=== PATIENT | female | born 1980 | race African-American/Black ===

== ENCOUNTER 2020-06-20 15:09 | Outpatient (REF) | payer OTHER, SELFPAY ==
[2020-06-21 08:42] LABS: BV Int Neg Control Negative (Negative); BV Int Pos Control Positive (Positive)
[2020-06-22 07:51] LABS: C. trachomatis RNA TMA NOT DETECTED (NOT DETECTED); N. gonorrhoeae RNA TMA NOT DETECTED (NOT DETECTED)
[2020-06-22 22:06] LABS: HPV mRNA E6/E7 Not Detected (Not Detected)
== END 2020-06-20 15:10 | disposition home or self-care (01) ==
LOC: HO.LAB 15:09
PROVIDERS: PCP Internal Medicine; Referring Provider Internal Medicine; Visit Provider Advanced Practice Midwife
DX: Z01.411 Encounter for gynecological examination (general) (routine) with abnormal findings (principal); R10.2 Pelvic and perineal pain; Z20.2 Contact with and (suspected) exposure to infections with a predominantly sexual mode of transmission
CPT/HCPCS: 36415; 87480; 87491; 87510; 87591; 87624; 87625; 87660; 88141; 88142

== ENCOUNTER 2020-06-26 07:58 | Outpatient (REF) | payer OTHER, SELFPAY ==
--- NOTE | 2020-06-26 14:05 | XR_ITS ---
EXAMINATION: BILATERAL AP KNEE, LEFT KNEE. CLINICAL INFORMATION: Left knee pain COMPARISON: Left knee 01/20/2013 TECHNIQUE: AP bilateral knee standing and left knee 2 views FINDINGS: AP BILATERAL KNEE: There is mild reduction in medial and lateral compartment joint space of both knees but no loose bodies, bony erosive changes or soft tissue swelling. LEFT KNEE: The patellofemoral compartment joint space is maintained. The soft tissues are normal. XR/XR knee standing BI IMPRESSION: Mild early degenerative changes in medial and lateral compartments both knees.
--- NOTE | 2020-06-26 14:05 | XR_ITS ---
EXAMINATION: BILATERAL AP KNEE, LEFT KNEE. CLINICAL INFORMATION: Left knee pain COMPARISON: Left knee 01/20/2013 TECHNIQUE: AP bilateral knee standing and left knee 2 views FINDINGS: AP BILATERAL KNEE: There is mild reduction in medial and lateral compartment joint space of both knees but no loose bodies, bony erosive changes or soft tissue swelling. LEFT KNEE: The patellofemoral compartment joint space is maintained. The soft tissues are normal. XR/XR knee LT 2V IMPRESSION: Mild early degenerative changes in medial and lateral compartments both knees.
== END 2020-06-26 07:59 | disposition home or self-care (01) ==
LOC: HO.HOSX 07:58
PROVIDERS: Visit Provider Orthopaedic Surgery
DX: M25.561 Pain in right knee (principal); M25.562 Pain in left knee; M22.2X2 Patellofemoral disorders, left knee
CPT/HCPCS: 73560; 73565; 99202

== ENCOUNTER 2020-06-28 14:41 | Outpatient (REF) | payer OTHER, SELFPAY ==
--- NOTE | 2020-06-28 14:47 | XR_ITS ---
EXAMINATION: XR KNEE, LEFT CLINICAL INFORMATION: Pain in left knee COMPARISON: 06/26/2020 TECHNIQUE: Four views of the left knee. This includes AP standing view. FINDINGS: There is no fracture or subluxation. Mild medial compartment joint space narrowing with remaining compartmental joint space is maintained. No joint effusion. The soft tissues are unremarkable.. XR/XR knee LT 2V IMPRESSION: Mild medial compartment narrowing. Otherwise unremarkable appearance of the left knee.
--- NOTE | 2020-06-28 14:47 | US_ITS ---
EXAMINATION: US PELVIS ULTRASOUND CLINICAL INFORMATION: R10.2 - Pelvic and perineal pain. Prior history x2 and right ectopic. COMPARISON: Ultrasound pelvis 11/24/2019, 02/01/2019 TECHNIQUE: Ultrasound of the pelvis is performed using both transabdominal and transvaginal transducers along with Doppler. Transvaginal imaging is performed due to inadequate visualization transabdominally. FINDINGS: Uterus: The uterus is anteverted and measures 6.8 x 3.7 x 5.8 cm. The double wall endometrial thickness is 9 mm. No fluid in the uterine cavity. There are some small nabothian cysts again seen in the cervix with scattered stable lower uterine segment echogenic foci likely benign calcification. No abnormal color flow. The uterus is smooth in contour and has normal myometrial echogenicity. No visible fibroid. Adnexa: Both ovaries are visualized. There is normal color flow to the adnexa. There is no ovarian torsion. There is no pelvic ascites or fluid collection. Right ovary measures 3.5 x 1.9 x 2.3 cm. There is a postovulatory corpus luteum within the right ovary measuring just under 1.5 cm. Left ovary measures 3.2 x 2.2 x 2.2 cm. No left adnexal mass. US/US pelvic complete IMPRESSION: 1. Uterus: Normal endometrial thickness. No visible fibroid. Stable punctate benign calcifications lower uterine segment and stable scattered nabothian cysts in cervix. 2. Adnexa: Incidental right postovulatory corpus luteum under 1.5 cm. No adnexal mass or pelvic ascites.
[2020-06-29 03:45] LABS: Syphilis Screen Nonreactive (Nonreactive)
[2020-06-29 03:58] LABS: HIV AB/AG Nonreactive (Nonreactive); HIV Num 1 0.08 S/CO (0.00-0.99); Hepatitis B Surface Antigen Negative (Negative); ~HepC Num1 0.09 S/CO (0.00-0.79); ~Hepatitis C Antibody Nonreactive (Nonreactive)
[2020-06-30 17:43] LABS: C. trachomatis RNA TMA NOT DETECTED (NOT DETECTED); N. gonorrhoeae RNA TMA NOT DETECTED (NOT DETECTED)
== END 2020-06-28 14:42 | disposition home or self-care (01) ==
LOC: HO.US 14:41
PROVIDERS: PCP Internal Medicine; Visit Provider Advanced Practice Midwife
DX: R10.2 Pelvic and perineal pain (principal); M25.562 Pain in left knee; Z20.2 Contact with and (suspected) exposure to infections with a predominantly sexual mode of transmission
CPT/HCPCS: 36415; 73560; 76830; 76856; 86780; 86803; 87340; 87389; 87491; 87591

== ENCOUNTER → 2020-07-12 12:55 | Outpatient (BNVA) | payer OTHER, SELFPAY | PROVIDERS: PCP Internal Medicine; Visit Provider Advanced Practice Midwife ==

== ENCOUNTER → 2020-09-13 14:48 | Outpatient (BNVA) | payer OTHER, SELFPAY | PROVIDERS: PCP Internal Medicine; Visit Provider Nurse Practitioner ==

== ENCOUNTER → 2020-10-08 13:09 | Outpatient (BNVA) | payer OTHER, SELFPAY | PROVIDERS: PCP Internal Medicine; Visit Provider Nurse Practitioner ==

== ENCOUNTER 2020-11-06 15:46 | Outpatient (REF) | payer OTHER, SELFPAY ==
--- NOTE | ~2020-11-06 | MM_ITS ---
EXAMINATION: MM SCREENING DIGITAL BREAST TOMOSYNTHESIS, BILATERAL CLINICAL INFORMATION: Screening. Asymptomatic. Age 40. No prior breast imaging. Family history breast cancer, grandmother. The lifetime risk of breast cancer based on the Tyrer-Cuzick Model is 13%. COMPARISON: None (current study represents initial baseline exam). TECHNIQUE: Digital breast tomosynthesis is performed in both the craniocaudal and mediolateral oblique views along with computer-aided detection (CAD). Synthesized 2D images are generated from the tomosynthesis. Additional exaggerated right CC view is provided. FINDINGS: There are scattered areas of fibroglandular density (ACR BI-RADS breast composition Category b). There are no significant masses, abnormal calcifications, or other abnormalities. The axilla and skin contours are unremarkable. MM/MM tomosynthesis screening BI IMPRESSION: No mammographic evidence of malignancy. ASSESSMENT: BI-RADS 1: Negative RECOMMENDATION: Routine annual mammography screening. This patient's information was entered into a reminder system with a target due date for their next mammogram.
== END 2020-11-06 15:47 | disposition home or self-care (01) ==
LOC: HO.MAMMO 15:46
PROVIDERS: PCP Internal Medicine; Visit Provider Internal Medicine
DX: Z12.31 Encounter for screening mammogram for malignant neoplasm of breast (principal)
CPT/HCPCS: 77063; 77067

== ENCOUNTER → 2020-11-20 15:47 | Outpatient (BNVA) | payer OTHER, SELFPAY | PROVIDERS: PCP Internal Medicine; Visit Provider Nurse Practitioner ==

== ENCOUNTER 2021-01-11 08:13 | Emergency (ER) | payer OTHER, SELFPAY ==
--- NOTE | ~2021-01-11 | CT_ITS ---
EXAMINATION: CT ABDOMEN AND PELVIS WITHOUT CONTRAST CLINICAL INFORMATION: Nausea with upper abdominal pain and diarrhea COMPARISON: Ultrasound of January 11, [address] scan of February 17, 2018. TECHNIQUE: Multidetector volumetric imaging was performed from the superior aspect of the liver through the pubic symphysis. Sagittal and coronal reformatted images were obtained on the technologist's workstation. This CT examination was performed using dose optimization techniques as appropriate, variously including the following: *Automated exposure control *Adjustment of mA and/or kV according to patient size (this includes techniques or standardized protocols for targeted exams where dose is matched to indication/reason for exam; i.e. extremities or head) *Use of iterative reconstruction technique DLP: 288 mGy-cm FINDINGS: LUNG BASES: The visualized lung bases are unremarkable. No pleural or pericardial effusion. Heart normal size. LIVER, GALLBLADDER, AND BILIARY TREE: The liver is normal in size, shape, and attenuation. No focal hepatic lesion or biliary ductal dilatation is present. The gallbladder is unremarkable with no evidence of radiopaque gallstones, gallbladder wall thickening, or obvious pericholecystic inflammatory changes. PANCREAS: Unremarkable. No pancreatic inflammatory change. SPLEEN: Unremarkable. ADRENAL GLANDS: Unremarkable. KIDNEYS AND URETERS: The kidneys are normal in size, shape, and attenuation. No hydronephrosis, hydroureter, or calculi seen. No perinephric stranding. BLADDER: Unremarkable. GASTROINTESTINAL TRACT: No dilated loops of large or small bowel are evident. No free air or free fluid. No pericolonic inflammatory change. The appendix appears unremarkable. ABDOMINAL WALL: No significant hernia is appreciated. LYMPH NODES: No lymphadenopathy is appreciated. VASCULAR: Unremarkable. PELVIC VISCERA: About the left anterior pelvis adjacent to the iliac vessels there is a fat density structure with calcification within the wall which was present on prior study of February 17, 2018 with there was a small amount of inflammatory change around it without calcification. This may represent lymph node or adnexal findings. OSSEOUS STRUCTURES: No destructive bony lesions identified. CT/CT abdomen pelvis wo con IMPRESSION: No significant acute disease appreciated to explain patient's symptoms.
--- NOTE | ~2021-01-11 | US_ITS ---
EXAMINATION: US ABDOMEN COMPLETE CLINICAL INFORMATION: Abdominal pain. Nausea and diarrhea.. COMPARISON: None TECHNIQUE: Real-time imaging of the abdominal viscera. FINDINGS: PANCREAS: Normal. ABDOMINAL AORTA: The proximal, mid, and distal segments are normal in caliber. INFERIOR VENA CAVA: Visualized portions are normal. LIVER: Normal. The liver is normal in size. The liver contour is normal. Parenchymal echogenicity is normal. No focal hepatic lesion. There is no intrahepatic biliary duct dilatation seen. GALLBLADDER: Gallbladder wall thickness is 0.14 cm. The gallbladder is physiologically distended without evidence of stones, sludge, polyps, wall thickening or pericholecystic fluid. COMMON BILE DUCT: Normal in caliber measuring 0.37 cm in diameter. RIGHT KIDNEY: Normal. No hydronephrosis. No renal calculi or focal parenchymal lesions. The kidney measures 10.1 cm in maximum dimension. LEFT KIDNEY: Normal. No hydronephrosis. No renal calculi or focal parenchymal lesions. The kidney measures 10.1 cm in maximum dimension. SPLEEN: Normal. The spleen measures 8.6 cm in maximum dimension. FREE FLUID: None. US/US abdomen complete IMPRESSION: Unremarkable complete abdomen ultrasound.
[2021-01-11 08:33] VITALS: BP 125/68; PULSE 85; RESP 18; TEMP 36.6; O2SAT 100; BMI 24.4
[2021-01-11 09:31] LABS: Basophils Percent Auto 1.1 % (0-2); Eosinophils Absolute Auto 0.3 X10*3/uL (0.0-0.4); Eosinophils Percent Auto 8.2 % (0-4); Hemoglobin 9.7 g/dl (12.0-16.0); Lymphocytes Absolute Auto 1.3 X10*3/uL (1.2-4.9); Lymphocytes Percent Auto 34.2 % (20-40); MANUAL DIFF FLAG NO; Mean Corpuscular HGB Conc 30.3 g/dl (31.0-35.0); Mean Corpuscular Hemoglobin 26.1 pg (27.0-33.0); Mean Platelet Volume 9.7 fL (9.4-12.3); Monocytes Absolute Auto 0.4 X10*3/uL (0.1-1.2); Monocytes Percent Auto 9.7 % (2-11); Neutrophils Absolute Auto 1.8 X10*3/uL (2.0-8.3); Neutrophils Percent Auto 46.8 % (45-73); Platelet Count 309 X10*3/uL (160-400); Red Blood Count 3.72 X10*6/uL (4.20-5.50); Red Cell Distribution Width 13.9 % (11.0-16.0); White Blood Count 3.8 X10*3/uL (4.8-10.8)
[2021-01-11] MEDS: Famotidine 20 MG TABLET PO (09:31)
[2021-01-11] MEDS: Magnesium Hydrox/Alum Hydrox 30 ML ORAL.SUSP PO (09:31)
[2021-01-11] MEDS: Lidocaine HCl Viscous 2 % 15 ML SOLUTION MUCOUS MEM (09:31)
[2021-01-11] MEDS: PHENobarb/Hyoscy/Atropine/Scop 10 ML ELIXIR PO (09:32)
[2021-01-11 10:00] LABS: Alanine Aminotransferase 15 U/L (0-31); Albumin Level 4.2 g/dL (3.5-5.0); Alkaline Phosphatase 63 U/L (39-117); Anion Gap 12 (12-20); Aspartate Amino Transferase 18 U/L (5-31); Bilirubin Total 0.5 mg/dL (0.0-1.0); Blood Urea Nitrogen 6 mg/dL (9-16); Calcium 9.2 mg/dL (8.4-10.2); Carbon Dioxide 24 mmol/L (22-29); Chloride 109 mmol/L (96-108); Creatinine Clr Calc Pharmacy 73.7; Estimated Glomerular Filt Rate > 60; Glucose Random 102 mg/dL (60-115); Lipase 33 U/L (8-78); Magnesium 2.2 mg/dL (1.6-2.6); Potassium 4.4 mmol/L (3.3-5.1); Sodium 141 mmol/L (135-145); Total Protein 7.4 g/dL (6.5-8.0)
--- NOTE | 2021-01-11 10:07 | ED_ITS ---
HPI - Abdominal Pain General Chief Complaint: Abdominal Pain Stated Complaint: abd pain Time Seen by Provider: 01/11/21 08:25 Source: patient and family (Significant other at bedside) Mode of arrival: ambulatory Limitations: language barrier ([place]ots[place]an-speaking) History of Present Illness HPI narrative: 40-year-old female with a past medical history of GERD being followed by Gastroenterology Dodie Estrada presenting to the ED with complaints of nausea with epigastric abdominal pain with 3 episodes of diarrhea that started prior to arrival. Reports that she has a chronic history of epigastric abdominal pain and was treated for an infection in her abdomen although despite being treated with the antibiotics for the infection her abdomen per patient she reports she continues to have acute on chronic exacerbations of her epigastric abdominal pain. She reports she feels like she has a lot of acid and despite ta estela her omeprazole when she has the increase in acid she has worsening pain instead of symptomatic relief. She reports she is not taking her omeprazole daily she normally only takes it when she feels increase in acid buildup/epigastric abdominal pain. She denies any fevers, chills, dizziness, vomiting, black or bloody emesis, chest pain or shortness of breath, palpitations, dyspnea on exertion, orthopnea, radiation of the abdominal pain, black or bloody stools, dysuria, hematuria, abnormal vaginal discharge, rashes, recent travel or sick contacts or any other symptoms complaints or concerns at this time. MD elicited complaint: abdominal pain Pertinent past history: other (GERD) Onset (ago): hour(s) (Prior to arrival although this is an acute on chronic exacerbation) Pain Consistency: intermittent Location: epigastric Severity: mild Quality: burning Relieving factors: nothing Context: history of similar episodes Associated symptoms: nausea, diarrhea and chills Treatments prior to arrival: other (Her omeprazole) Related Data Home Medications Medication Instructions Recorded Confirmed albuterol sulfate mg INHALATION 03/01/20 06/04/20 albuterol sulfate 90 mcg/actuation INHALATION 03/01/20 06/04/20 aerosol inhaler fluticasone propionate 50 INTRANASAL 03/01/20 06/04/20 mcg/actuation nasal spray,suspension ibuprofen 600 mg tablet 600 mg PO Q8H PRN 03/01/20 06/04/20 montelukast 10 mg tablet 10 mg PO DAILY 03/01/20 06/04/20 tranexamic acid 650 mg tablet 1,300 mg PO TID 03/01/20 06/04/20 (Lysteda) fluticasone propionate 110 2 puff INHALATION BID 10/08/20 mcg/actuation HFA aerosol inhaler Previous Rx's Medication Instructions Recorded bisacodyl 10 mg rectal suppository 10 mg SD DAILY 30 Days #30 ea 09/13/20 metoclopramide HCl 10 mg tablet 10 mg PO .TIDAC 30 Days #90 tab 09/13/20 (Reglan) omeprazole 40 mg capsule,delayed 40 mg PO DAILY 90 Days #90 cap 10/30/20 release cetirizine 10 mg tablet 10 mg PO DAILY 90 Days #90 tab 11/19/20 diclofenac sodium 75 mg 75 mg PO BID #60 tab 11/19/20 tablet,delayed release Allergies Allergy/AdvReac Type Severity Reaction Status Date / Time Beef Containing Products Allergy Intermediate ITCHY Verified 11/20/20 15:51 [BEEF CONTAINING PRODUCTS] tramadol [TRAMADOL] Allergy Unknown TACHYCARDIA/SOB, Verified 11/20/20 15:51 anaphylaxis shellfish Allergy Unknown anaphylaxis Uncoded 06/04/20 16:51 Review of Systems Review of Systems Constitutional : Positive chills, No Weight loss, No Fever, No Night Sweats, No Fatigue, No Malaise ENT/Mouth: No ear pain, No sore throat, No Difficulty swallowing Cardiovascular : No Chest Pain, No SOB, No Dyspnea on Exertion, No Orthopnea, NoEdema, No Palpitations Respiratory : No Cough, No Sputum, No Wheezing, No Dyspnea Gastrointestinal : Positive nausea with epigastric abdominal pain and diarrhea, No Vomiting, No blood streaked emesis, No coffee-ground emesis, No gross hematemesis, No blood streak stool, No gross hematochezia, No Melena Genitourinary : No irregular bleeding, No Dysuria, No Urinary Frequency, No Hematuria,No Urinary Incontinence, No Urgency, No Flank Pain Musculoskeletal : No joint pain, No Myalgias, No Joint Swelling Skin : No Skin Lesions, No rash Neuro : No Weakness, No Numbness, No Paresthesias, No Loss of Consciousness, NoDizziness, No Headache Psych : No Social Issues, Heme/Lymph: No Bruising, No Bleeding,No Lymphadenopathy Endocrine : No Polyuria, No Polydipsia, No Temperature Intolerance Yes all other systems are reviewed and are negative Physical Exam Vital Signs: Vital Signs: Last Vital Signs Temp 99.0 F 01/11/21 10:22 Pulse 70 01/11/21 12:07 Resp 16 01/11/21 10:22 BP 118/79 01/11/21 12:07 Pulse Ox 99 01/11/21 12:07 Body Mass Index 24.4 vital signs have been reviewed as normal and appeared to be correct. Blood pressure normal. Heart rate normal. Respiration rate normal. Temperature normal. Oxygen saturation normal. Appearance: Alert. Oriented X3. No acute distress. Head: Normal external exam. Normocephalic. Eyes: PERRLA. EOMI. Conjunctiva and sclera normal. Eyelids normal. ENT: Pharynx normal. Uvula midline. Moist mucous membranes. Neck: Normal inspection. Neck supple. FROM. No adenopathy. No meningeal signs. CVS: Normal heart rate and rhythm. Heart sound normal. No murmurs noted. Pulses normal throughout. Respiratory: No respiratory distress. Painless inspiration. Breath sounds normal. No wheezes/rales/rhonchi noted. Chest nontender. No accessory muscle usage noted or decreased air movement noted. Abdomen: Soft and mild tenderness palpation to epigastric area with guarding Nondistended. No rigidity. Bowel sounds normal in all 4 quadrants. No distention noted. No organomegaly noted. No visible injury noted. No rebound tenderness. Negative Rovsing sign. Negative obturator's sign. Negative psoas sign. Negative Vann sign. Back: No CVA tenderness. Full range of motion noted. Skin: Skin warm and dry. Normal skin color. Normal skin turgor. No rashes/lesions/lacerations noted. Extremities: Extremities exhibit normal range of motion. Extremities nontender. Neuro: Oriented X 3. No motor deficit. No sensory deficit. Reflexes normal. Normal steady gait. Course Course Course Narrative: 9am - 40-year-old female with a past medical history of GERD being followed by Gastroenterology August presenting to the ED with complaints of nausea with epigastric abdominal pain with 3 episodes of diarrhea that started prior to arrival. Reports that she has a chronic history of epigastric abdominal pain and was treated for an infection in her abdomen although despite being treated with the antibiotics for the infection her abdomen per patient she reports she continues to have acute on chronic exacerbations of her epigastric abdominal pain. She reports she feels like she has a lot of acid and despite taking her omeprazole when she has the increase in acid she has worsening pain instead of symptomatic relief. She reports she is not taking her omeprazole daily she no rmally only takes it when she feels increase in acid buildup/epigastric abdominal pain. Plan: Labs, UA, abdominal ultrasound. Provided GI cocktail then re-evaluate. Reevaluation(s) Reevaluation #1: - labs return and patient with white blood cell count at 3000. Mild anemia and has decreased when compared to 2019. Otherwise all other labs are within normal limits. UA within normal limits no evidence of UTI. I attempted to do a bedside stool occult and it was negative at bedside. There was not enough stool to send to the lab. Patient denies any rectal bleeding black or bloody stools. Abdominal ultrasound within normal limits no acute processes noted. CT scan abdomen and pelvis without IV contrast within normal limits no acute processes noted. Will DC home with symptomatic treatment instructions to follow-up with seismic interpreter. Patient understands agrees with this plan. Time: 12:56 MDM - Abdominal Pain Medical Records Attestation: I reviewed the patient's medical records. Lab Data Attestation: I reviewed the patient's lab results. Result diagrams: 01/11/21 Unknown 01/11/21 Unknown Labs: Lab Results 01/11/21 01/11/21 01/11/21 Range/Units 10:31 Unknown Unknown WBC 3.8 L (4.8-10.8) X10*3/uL RBC 3.72 L (4.20-5.50) X10*6/uL Hgb 9.7 L (12.0-16.0) g/dl Hct 32.0 L (37-47) % MCV 86.0 (80-98) fL MCH 26.1 L (27.0-33.0) pg MCHC 30.3 L (31.0-35.0) g/dl RDW 13.9 (11.0-16.0) % Plt Count 309 (160-400) X10*3/uL MPV 9.7 (9.4-12.3) fL Immature Gran % (Auto) 0.0 (0.0-0.4) % Neut % (Auto) 46.8 (45-73) % Lymph % (Auto) 34.2 (20-40) % [place] % (Auto) 9.7 (2-11) % Eos % (Auto) 8.2 H (0-4) % Baso % (Auto) 1.1 (0-2) % Lymph # (Auto) 1.3 (1.2-4.9) X10*3/uL [place] # (Auto) 0.4 (0.1-1.2) X10*3/uL Eos # (Auto) 0.3 (0.0-0.4) X10*3/uL Baso # (Auto) 0.0 (0.0-0.2) X10*3/uL Abs Immat Gran (auto) 0.00 (0.00-0.03) X10*3/uL Absolute Neuts (auto) 1.8 L (2.0-8.3) X10*3/uL Absolute Nucleated RBC 0.000 (0.0-0.012) X10*3/uL Nucleated RBC % (auto) 0.0 (0.0-0.2) /100WBC Sodium 141 (135-145) mmol/L Potassium 4.4 (3.3-5.1) mmol/L Chloride 109 H (96-108) mmol/L Carbon Dioxide 24 (22-29) mmol/L Anion Gap 12 (12-20) BUN 6 L (9-16) mg/dL Creatinine 0.80 (0.5-1.4) mg/dL Estim Creat Clear Calc 73.7 Estimated GFR > 60 Random Glucose 102 (60-115) mg/dL Calcium 9.2 (8.4-10.2) mg/dL Magnesium 2.2 (1.6-2.6) mg/dL Total Bilirubin 0.5 (0.0-1.0) mg/dL AST 18 (5-31) U/L ALT 15 (0-31) U/L Alkaline Phosphatase 63 (39-117) U/L Total Protein 7.4 (6.5-8.0) g/dL Albumin 4.2 (3.5-5.0) g/dL Lipase 33 (8-78) U/L Urine Color COLORLESS Urine Appearance HAZY Urine pH 6.0 (5.0-8.0) Ur Specific [place] <= 1.005 (1.005-1.025) Urine Protein NEG (NEG-TRACE) MG/DL Urine Glucose (UA) NEG (NEG) MG/DL Urine Ketones NEG (NEG) MG/DL Urine Blood 2+ H (NEG) Urine Nitrite NEG (NEG) Ur Leukocyte Esterase NEG (NEG) Urine RBC 1-4 (0) /HPF Urine WBC 0-2 (0-4) /HPF Ur Squamous Epith Cells TRACE /LPF Urine Bacteria NONE /LPF Discharge Plan Discharge Clinical Impression: GERD (gastroesophageal reflux disease) Patient Disposition: Home, Self-Care Instructions: Gastroesophageal Reflux Disease (ED) Prescriptions: No Action omeprazole 40 mg capsule,delayed release(DR/EC) 40 mg PO DAILY 90 Days Qty: 90 RF: 1 cetirizine 10 mg tablet 10 mg PO DAILY 90 Days Qty: 90 RF: 3 diclofenac sodium 75 mg tablet,delayed release (DR/EC) 75 mg PO BID Qty: 60 RF: 2 albuterol sulfate 90 mcg/actuation HFA aerosol inhaler inhalation RF: 0 montelukast 10 mg tablet 10 mg PO DAILY RF: 0 fluticasone propionate 50 mcg/actuation spray,suspension intranasal RF: 0 albuterol sulfate 2.5 mg /3 mL (0.083 %) solution for nebulization inhalation RF: 0 tranexamic acid [Lysteda] 650 mg tablet 1,300 mg PO TID RF: 0 ibuprofen 600 mg tablet 600 mg PO Q8H PRNRF: 0 bisacodyl 10 mg suppository 10 mg SD DAILY 30 Days Qty: 30 RF: 6 metoclopramide HCl [Reglan] 10 mg tablet 10 mg PO .TIDAC 30 Days Qty: 90 RF: 6 Flovent HFA 110 mcg/actuation HFA aerosol inhaler 2 puff inhalation BID RF: 0 Referrals: Dodie Estrada, JODYC [Nurse Practitioner] - 2 days Kaylee Lieberman MD [Primary Care Provider] - 2 days Print Language: [place] [facility] Past Medical History Attestation statement: The following information was validated with the patient. Medical History GERD (gastroesophageal reflux disease) History of ectopic Left knee pain Mild asthma Surgical History H/O tubal ligation History of History of esophagogastroduodenoscopy (EGD) Family History Family History Father Diabetes Mother No problems noted. Maternal Grandmother Hypertension Maternal Grandfather Hypertension Paternal Grandfather Hypertension Paternal Grandmother Hypertension Social History Social History Alcohol intake: never Advance Directives: No Advance Directives Information Provided: No Current occupational status: unemployed Current occupation: Right handed Gender identity: female
[2021-01-11 10:22] VITALS: BP 116/62; PULSE 75; RESP 16; TEMP 37.2; O2SAT 100
[2021-01-11 10:38] LABS: Glucose Urine UA NEG (NEG); Leukocyte Esterase Urine NEG (NEG); Nitrite Urine NEG (NEG); Specific Gravity - Urine <= 1.005 (1.005-1.025); UACC Culture Trigger NO; Urine Blood 2+ (NEG); Urine Ketones NEG (NEG); Urine Protein NEG (NEG-TRACE)
[2021-01-11 10:39] LABS: Appearance Urine HAZY; Color Urine COLORLESS
[2021-01-11 10:45] LABS: Squamous Epithelial Cell Urine TRACE /LPF; WBC Urine 0-2 /HPF (0-4)
[2021-01-11 12:07] VITALS: BP 118/79; PULSE 70; O2SAT 99
== END 2021-01-11 13:16 | disposition home or self-care (01) ==
PROVIDERS: Physician Assistant Medical; Emergency Provider Emergency Medicine; PCP Internal Medicine
DX: K21.9 Gastro-esophageal reflux disease without esophagitis (principal); R10.13 Epigastric pain; Z79.899 Other long term (current) drug therapy
CPT/HCPCS: 36415; 74176; 76700; 80053; 81001; 83690; 83735; 85025; 99284

== ENCOUNTER → 2021-01-15 14:58 | Outpatient (BNVA) | payer OTHER, SELFPAY | PROVIDERS: PCP Internal Medicine; Visit Provider Nurse Practitioner ==

== ENCOUNTER 2021-04-19 17:02 | Outpatient (REF) | payer OTHER, SELFPAY ==
[2021-04-19 17:14] LABS: MANUAL DIFF FLAG NO
[2021-04-19 17:53] LABS: Basophils Absolute Auto 0.1 X10*3/uL (0.0-0.2); Basophils Percent Auto 1.5 % (0-2); Eosinophils Absolute Auto 0.4 X10*3/uL (0.0-0.4); Eosinophils Percent Auto 9.3 % (0-4); Hematocrit 35.1 % (37.0-47.0); Hemoglobin 11.1 g/dl (12.0-16.0); Imm Gran Abs Auto 0.02 X10*3/uL (0.00-0.03); Imm Gran Pct Auto 0.4 % (0.0-0.4); Lymphocytes Absolute Auto 1.7 X10*3/uL (1.2-4.9); Lymphocytes Percent Auto 36.6 % (20-40); Mean Corpuscular HGB Conc 31.6 g/dl (31.0-35.0); Mean Corpuscular Hemoglobin 28.2 pg (27.0-33.0); Mean Corpuscular Volume 89.3 fL (80.0-98.0); Mean Platelet Volume 10.2 fL (9.4-12.3); Monocytes Absolute Auto 0.4 X10*3/uL (0.1-1.2); Monocytes Percent Auto 9.5 % (2-11); Neutrophils Percent Auto 42.7 % (45-73); Platelet Count 315 X10*3/uL (160-400); Red Blood Count 3.93 X10*6/uL (4.20-5.50); Red Cell Distribution Width 14.5 % (11.0-16.0); White Blood Count 4.6 X10*3/uL (4.8-10.8)
[2021-04-19 18:16] LABS: Alanine Aminotransferase 16 U/L (0-31); Albumin Level 4.3 g/dL (3.5-5.0); Alkaline Phosphatase 59 U/L (39-117); Anion Gap 11 (12-20); Aspartate Amino Transferase 18 U/L (5-31); Bilirubin Total 0.4 mg/dL (0.0-1.0); Blood Urea Nitrogen 8 mg/dL (9-16); Calcium 9.1 mg/dL (8.4-10.2); Carbon Dioxide 26 mmol/L (22-29); Chloride 108 mmol/L (96-108); Estimated Glomerular Filt Rate > 60; Glucose Random 90 mg/dL (60-115); Potassium 4.1 mmol/L (3.3-5.1); Sodium 141 mmol/L (135-145); Total Protein 7.7 g/dL (6.5-8.0)
[2021-04-19 18:36] LABS: Thyroid Stimulating Hormone 0.92 uIU/mL (0.32-4.0); Vitamin D 25-OH Total 19.4 ng/mL (>30)
[2021-04-19 18:48] LABS: Folate 12.3 ng/mL (> or = 4.0); Vitamin B12 457 pg/mL (200-900)
== END 2021-04-19 17:03 | disposition home or self-care (01) ==
LOC: HO.LAB 17:02
PROVIDERS: PCP Internal Medicine; Visit Provider Nurse Practitioner Family
DX: R53.83 Other fatigue (principal)
CPT/HCPCS: 36415; 80053; 82306; 82607; 82746; 84443; 85025

== ENCOUNTER → 2021-05-02 10:29 | Outpatient (REF) | payer OTHER, SELFPAY ==
--- NOTE | 2021-05-02 10:33 | CA_ITS ---
Acquisition Time: 2021-05-02 11:27:12 Total Exercise Time: 00:07:18 Test Indications: cp, tachycardia Medications: see chart Protocol: EUSEBIA Max HR: 155 BPM 86% of Pred: 179 BPM Max BP: 120/078 mmHG Max Work Load: 9.0 METS Exercise stress test with exercise 7 min 18 sec of Eusebia protocol, with report of 1/10 localized left chest discomfort at rest which is always there that increased to 2/10 during exercise, with mild sob, with isolated PVCs, with normotensive response to exercise, with artifact at peak exercise and without EKG changes meeting criteria for ischemia at 12 sec of recovery and remainder of recovery. While in recovery she developed cough and wheezing which she states was her asthma. She used her own proair inhaler with improvement in symptom. Her chest discomfort remained at a 2/10 through recovery. Test reviewed with Dr Pablo. Referred By: Lorena Lora Overread By: ISAURO PELAEZ
== END ==
LOC: HO.CARD 10:29
PROVIDERS: Visit Provider Nurse Practitioner Family
DX: R07.9 Chest pain, unspecified (principal)
CPT/HCPCS: 93017

== ENCOUNTER 2021-05-14 14:50 | Outpatient (REF) | payer OTHER, SELFPAY ==
[2021-05-14 16:08] LABS: Basophils Absolute Auto 0.1 X10*3/uL (0.0-0.2); Basophils Percent Auto 1.5 % (0-2); Eosinophils Absolute Auto 0.4 X10*3/uL (0.0-0.4); Eosinophils Percent Auto 10.2 % (0-4); Hematocrit 35.6 % (37.0-47.0); Imm Gran Abs Auto 0.01 X10*3/uL (0.00-0.03); Imm Gran Pct Auto 0.3 % (0.0-0.4); Lymphocytes Absolute Auto 1.3 X10*3/uL (1.2-4.9); Lymphocytes Percent Auto 38.2 % (20-40); MANUAL DIFF FLAG NO; Mean Corpuscular HGB Conc 30.9 g/dl (31.0-35.0); Mean Corpuscular Volume 90.6 fL (80.0-98.0); Mean Platelet Volume 10.3 fL (9.4-12.3); Monocytes Absolute Auto 0.3 X10*3/uL (0.1-1.2); Monocytes Percent Auto 9.6 % (2-11); Neutrophils Absolute Auto 1.4 x10*3/uL (2.0-8.3); Neutrophils Percent Auto 40.2 % (45-73); Platelet Count 321 X10*3/uL (160-400); Red Blood Count 3.93 X10*6/uL (4.20-5.50); Red Cell Distribution Width 13.3 % (11.0-16.0); White Blood Count 3.4 X10*3/uL (4.8-10.8)
== END 2021-05-14 14:51 | disposition home or self-care (01) ==
LOC: HO.LAB 14:50
PROVIDERS: PCP Internal Medicine; Visit Provider Internal Medicine Pulmonary Disease
DX: Z91.09 Other allergy status, other than to drugs and biological substances (principal)
CPT/HCPCS: 36415; 82785; 85025; 86003; 99202

== ENCOUNTER 2021-06-13 14:01 | Outpatient (REF) | payer OTHER, SELFPAY ==
--- NOTE | 2021-06-13 17:03 | PFT_ITS ---
INDICATION: Asthma. SPIROMETRY: FEV1 to FVC ratio 84% with an FEV1 of 2.59 L which is 107% predicted and the FVC of 3.11 L, which is 105% predicted. Post bronchodilators, the patient has significant response to bronchodilators. In addition to that, the patient does have evidence of small airway disease consistent with her diagnosis of asthma. LUNG VOLUMES: Total lung capacity 95% predicted. DIFFUSION CAPACITY: DLCO 102% predicted. COMPARISONS: None. INTERPRETATION: No obstructive nor restrictive ventilatory defects identified. There is a significant response to bronchodilators noted. The patient also has evidence of small airway disease consistent with the diagnosis of asthma. Lung volumes and diffusion capacity are within normal limits. Clinical correlation warranted. Minh Garcia MD MR/MODL / [id number]
== END 2021-06-13 14:02 | disposition home or self-care (01) ==
LOC: HO.RESP 14:01
PROVIDERS: PCP Internal Medicine; Visit Provider Internal Medicine Pulmonary Disease
DX: J45.909 Unspecified asthma, uncomplicated (principal); Z91.09 Other allergy status, other than to drugs and biological substances
CPT/HCPCS: 94060; 94727; 94729; 99212

== ENCOUNTER 2021-06-27 14:05 | Outpatient (REF) | payer OTHER, SELFPAY ==
[2021-06-27 15:07] LABS: MANUAL DIFF FLAG NO
[2021-06-27 15:21] LABS: Basophils Absolute Auto 0.1 X10*3/uL (0.0-0.2); Basophils Percent Auto 1.1 % (0-2); Eosinophils Absolute Auto 0.3 X10*3/uL (0.0-0.4); Eosinophils Percent Auto 6.6 % (0-4); Hematocrit 34.4 % (37.0-47.0); Hemoglobin 10.8 g/dl (12.0-16.0); Imm Gran Abs Auto 0.01 X10*3/uL (0.00-0.03); Imm Gran Pct Auto 0.2 % (0.0-0.4); Immature Retic Fraction 9.4 % (3.0-15.9); Lymphocytes Absolute Auto 1.6 X10*3/uL (1.2-4.9); Mean Corpuscular HGB Conc 31.4 g/dl (31.0-35.0); Mean Corpuscular Hemoglobin 27.8 pg (27.0-33.0); Mean Corpuscular Volume 88.7 fL (80.0-98.0); Mean Platelet Volume 10.1 fL (9.4-12.3); Monocytes Absolute Auto 0.5 X10*3/uL (0.1-1.2); Monocytes Percent Auto 9.8 % (2-11); Neutrophils Absolute Auto 2.3 x10*3/uL (2.0-8.3); Neutrophils Percent Auto 49.3 % (45-73); Platelet Count 308 X10*3/uL (160-400); Red Blood Count 3.88 X10*6/uL (4.20-5.50); Red Cell Distribution Width 13.5 % (11.0-16.0); Retic HGB Equivalent 31.2 pg (30.0-35.0); Reticulocytes Absolute 0.038 X10*6/uL (0.026-0.095); White Blood Count 4.7 X10*3/uL (4.8-10.8)
[2021-06-27 15:44] LABS: Cholesterol 182 mg/dL; HDL Cholesterol 41 mg/dL; Iron 58 mcg/dL (30-160); LDL Cholesterol Calculated 121 mg/dl; Percent Iron Saturation 15 % (15-50); Total Iron Binding Capacity 376 mcg/dL (228-428); Triglycerides 101 mg/dL; Unsaturated Iron Binding 318 ug/dL
[2021-06-27 16:04] LABS: Ferritin 10 ng/mL (10-250)
[2021-06-27 16:19] LABS: Folate 18.6 ng/mL (> or = 4.0); Vitamin B12 517 pg/mL (200-900)
[2021-06-28 10:02] LABS: Immunoglobulin E 708 kU/L (<OR=114)
== END 2021-06-27 14:06 | disposition home or self-care (01) ==
LOC: HO.LAB 14:05
PROVIDERS: Internal Medicine Pulmonary Disease; Nurse Practitioner Family; Absent Provider Advanced Practice Midwife; PCP Internal Medicine; Visit Provider Internal Medicine
DX: E78.00 Pure hypercholesterolemia, unspecified (principal); D64.9 Anemia, unspecified; Z91.09 Other allergy status, other than to drugs and biological substances
CPT/HCPCS: 36415; 80061; 82607; 82728; 82746; 82785; 83540; 85025; 85045

== ENCOUNTER 2021-07-02 15:09 | Outpatient (REF) | payer OTHER, SELFPAY ==
[2021-07-02 17:47] LABS: HCG Quantitative < 2 mIU/mL; TSH reflex Free T4 1.06 uIU/mL (0.32-4.0)
== END 2021-07-02 15:10 | disposition home or self-care (01) ==
LOC: HO.LAB 15:09
PROVIDERS: PCP Internal Medicine; Visit Provider Obstetrics & Gynecology
DX: N39.3 Stress incontinence (female) (male) (principal)
CPT/HCPCS: 36415; 84443; 84702; 99212

== ENCOUNTER → 2021-07-12 12:04 | Outpatient (BNV) | payer OTHER, SELFPAY | PROVIDERS: PCP Internal Medicine; Referring Provider Internal Medicine; Visit Provider Internal Medicine Medical Oncology | DX: D50.9 Iron deficiency anemia, unspecified (principal) | CPT/HCPCS: 99203; 99213 ==

== ENCOUNTER 2021-07-25 15:35 | Outpatient (REF) | payer OTHER, SELFPAY ==
--- NOTE | ~2021-07-25 | US_ITS ---
EXAMINATION: US PELVIS CLINICAL INFORMATION: Abnormal uterine and vaginal bleeding COMPARISON: Previous pelvic ultrasound June [address] of the abdomen and pelvis December 2012 TECHNIQUE: Ultrasound of the pelvis is performed using both transabdominal and transvaginal transducers along with Doppler. Transvaginal imaging is performed due to inadequate visualization transabdominally. FINDINGS: The uterus is anteverted and measures 8 x 4.3 x 5.5 cm in dimension. No focal uterine lesion is seen. Endometrial thickness is normal measuring 0.5 cm. There is a small amount of fluid in the endometrial cavity. There are small nabothian cysts in the cervix. The right ovary measures 2 2.7 x 2.2 x 2.3 cm. There are 2 small echogenic areas in the right ovary. This is similar to June 2020 exam. No corresponding abnormality is seen on CT scan. The left ovary is normal-appearing and measures 2.4 x 1.5 x 2.2 cm. There is no fluid in the pelvis. US/US pelvic and transvaginal IMPRESSION: Normal thickness endometrium.
== END 2021-07-25 15:36 | disposition home or self-care (01) ==
LOC: HO.US 15:35
PROVIDERS: Visit Provider Obstetrics & Gynecology
DX: N93.9 Abnormal uterine and vaginal bleeding, unspecified (principal)
CPT/HCPCS: 76830; 76856

== ENCOUNTER 2021-07-29 13:08 | Outpatient (REF) | payer OTHER, SELFPAY | END 2021-07-29 13:09 | disposition home or self-care (01) | LOC: HO.MDS 13:08 | PROVIDERS: Visit Provider Internal Medicine Medical Oncology | DX: D50.9 Iron deficiency anemia, unspecified (principal) | CPT/HCPCS: 96365; J2916 ==

== ENCOUNTER 2021-08-06 14:55 | Outpatient (REF) | payer OTHER, SELFPAY | END 2021-08-06 14:56 | disposition home or self-care (01) | LOC: HO.LAB 14:55 | PROVIDERS: PCP Internal Medicine; Visit Provider Obstetrics & Gynecology | DX: N93.9 Abnormal uterine and vaginal bleeding, unspecified (principal) | CPT/HCPCS: 58100; 88305 ==

== ENCOUNTER 2021-08-12 13:36 | Outpatient (REF) | payer OTHER, SELFPAY | END 2021-08-12 13:37 | disposition home or self-care (01) | LOC: HO.MDS 13:36 | PROVIDERS: Visit Provider Internal Medicine Medical Oncology | DX: D50.9 Iron deficiency anemia, unspecified (principal) | CPT/HCPCS: 96365; J2916 ==

== ENCOUNTER → 2021-08-20 14:23 | Outpatient (BNVA) | payer OTHER, SELFPAY | PROVIDERS: PCP Internal Medicine; Visit Provider Obstetrics & Gynecology | DX: N93.9 Abnormal uterine and vaginal bleeding, unspecified (principal) | CPT/HCPCS: Q3014 ==

== ENCOUNTER 2021-08-22 13:09 | Outpatient (REF) | payer OTHER, SELFPAY ==
[2021-08-22 14:13] LABS: MANUAL DIFF FLAG NO
[2021-08-22 14:16] LABS: Basophils Absolute Auto 0.1 X10*3/uL (0.0-0.2); Basophils Percent Auto 1.2 % (0-2); Eosinophils Absolute Auto 0.3 X10*3/uL (0.0-0.4); Eosinophils Percent Auto 6.5 % (0-4); Hematocrit 34.7 % (37.0-47.0); Hemoglobin 10.5 g/dl (12.0-16.0); Imm Gran Abs Auto 0.02 X10*3/uL (0.00-0.03); Imm Gran Pct Auto 0.5 % (0.0-0.4); Lymphocytes Percent Auto 23.8 % (20-40); Mean Corpuscular HGB Conc 30.3 g/dl (31.0-35.0); Mean Corpuscular Hemoglobin 27.6 pg (27.0-33.0); Mean Corpuscular Volume 91.3 fL (80.0-98.0); Mean Platelet Volume 9.6 fL (9.4-12.3); Monocytes Absolute Auto 0.4 X10*3/uL (0.1-1.2); Monocytes Percent Auto 8.9 % (2-11); Neutrophils Absolute Auto 2.5 x10*3/uL (2.0-8.3); Neutrophils Percent Auto 59.1 % (45-73); Platelet Count 255 X10*3/uL (160-400); Red Cell Distribution Width 14.5 % (11.0-16.0); White Blood Count 4.3 X10*3/uL (4.8-10.8)
== END 2021-08-22 13:10 | disposition home or self-care (01) ==
LOC: HO.MDS 13:09
PROVIDERS: Visit Provider Internal Medicine Medical Oncology
DX: D50.9 Iron deficiency anemia, unspecified (principal)
CPT/HCPCS: 36415; 85025; 96365; J2916

== ENCOUNTER 2021-08-29 13:44 | Outpatient (REF) | payer OTHER, SELFPAY ==
[2021-08-29 14:36] LABS: MANUAL DIFF FLAG NO
[2021-08-29 14:40] LABS: Basophils Percent Auto 1.1 % (0-2); Eosinophils Absolute Auto 0.3 X10*3/uL (0.0-0.4); Eosinophils Percent Auto 7.4 % (0-4); Hematocrit 36.3 % (37.0-47.0); Hemoglobin 11.1 g/dl (12.0-16.0); Imm Gran Abs Auto 0.02 X10*3/uL (0.00-0.03); Imm Gran Pct Auto 0.5 % (0.0-0.4); Lymphocytes Absolute Auto 1.4 X10*3/uL (1.2-4.9); Lymphocytes Percent Auto 38.4 % (20-40); Mean Corpuscular HGB Conc 30.6 g/dl (31.0-35.0); Mean Corpuscular Hemoglobin 27.6 pg (27.0-33.0); Mean Corpuscular Volume 90.3 fL (80.0-98.0); Mean Platelet Volume 9.7 fL (9.4-12.3); Monocytes Absolute Auto 0.4 X10*3/uL (0.1-1.2); Monocytes Percent Auto 10.7 % (2-11); Neutrophils Absolute Auto 1.5 x10*3/uL (2.0-8.3); Neutrophils Percent Auto 41.9 % (45-73); Platelet Count 249 X10*3/uL (160-400); Red Blood Count 4.02 X10*6/uL (4.20-5.50); Red Cell Distribution Width 14.8 % (11.0-16.0); White Blood Count 3.7 X10*3/uL (4.8-10.8)
== END 2021-08-29 13:45 | disposition home or self-care (01) ==
LOC: HO.MDS 13:44
PROVIDERS: Visit Provider Internal Medicine Medical Oncology
DX: D50.9 Iron deficiency anemia, unspecified (principal)
CPT/HCPCS: 36415; 85025; 96365; J2916

== ENCOUNTER 2021-09-18 17:38 | Emergency (ER) | payer OTHER, SELFPAY ==
--- NOTE | ~2021-09-18 | XR_ITS ---
EXAMINATION: XR CHEST CLINICAL INFORMATION: Cough with mucous COMPARISON: 03/31/2018 TECHNIQUE: Frontal view of the chest was obtained. FINDINGS: No significant abnormality is noted involving the heart, lungs, mediastinum, bony thorax or soft tissues. XR/XR chest 1V IMPRESSION: Unremarkable examination.
[2021-09-18 18:42] VITALS: BP 124/80; PULSE 85; RESP 16; TEMP 37; O2SAT 99; BMI 24.0
--- NOTE | 2021-09-18 18:55 | ED.GENADULT ---
HPI - General Adult General Chief complaint: General Medical Stated complaint: flu like symptoms Time Seen by Provider: 09/18/21 18:42 Source: patient Mode of arrival: ambulatory Limitations: no limitations History of Present Illness HPI narrative: Patient comes to the emergency room complaining of 3 days of coughing. Patient states that she has history of bronchitis and asthma. Patient has not used her inhaler in over a week. Patient has tried multiple [id number] cough syrups without any relief. Patient complaining of subjective fever, patient complaining of mild sore throat. Patient denies shortness of breath. No chest pain. Related Data Home Medications Medication Instructions Recorded Confirmed albuterol sulfate 90 mcg/actuation 90 mcg INHALATION NEEDED 03/01/20 08/22/21 aerosol inhaler Previous Rx's Medication Instructions Recorded omeprazole 40 mg capsule,delayed 40 mg PO DAILY 90 Days #90 cap 04/19/21 release amoxicillin 875 mg-potassium 1 tab PO BID 7 Days #14 tab 08/22/21 clavulanate 125 mg tablet meclizine 25 mg tablet 25 mg PO DAILY PRN 7 Days #7 tab 08/22/21 oseltamivir 75 mg capsule (Tamiflu) 75 mg PO BID 5 Days #9 cap 09/18/21 Allergies Allergy/AdvReac Type Severity Reaction Status Date / Time Beef Containing Products Allergy Intermediate ITCHY Verified 08/22/21 15:13 [BEEF CONTAINING PRODUCTS] lactose Allergy Mild Itching Verified 08/22/21 15:13 tramadol [TRAMADOL] Allergy Unknown TACHYCARDIA/SOB, Verified 08/22/21 15:13 anaphylaxis shellfish Allergy Unknown anaphylaxis Uncoded 08/22/21 15:13 Review of Systems Review of Systems: Constitutional : No Weight loss, complaining ofFever, No Chills, No Night Sweats, complaining of generalized malaise ENT/Mouth : No Hearing loss, No Ear Pain, No Nasal Congestion, No Sinus Pain, No Hoarseness, No sore throat, No Rhinorrhea, No Swallowing Difficulty Eyes: No Eye Pain, No Swelling, No Redness, No Foreign Body, No Discharge, No Vision Changes Cardiovascular : No Chest Pain, No SOB, No Dyspnea on Exertion, No Orthopnea, No Edema, No Palpitations Respiratory : Complaining of cough, congestion, sore throat, body pain and subjective fever Gastrointestinal : No Nausea, No Vomiting, No Diarrhea, No Constipation, No abdominal Pain, No Hematochezia, No Melena Genitourinary : no irregular bleeding, No Dysuria, No Urinary Frequency, No Hematuria, No Urinary Incontinence, No Urgency, No Flank Pain, No Urinary Flow Changes, No Hesitancy Musculoskeletal : No joint pain, No Myalgias, No Joint Swelling Skin : No Skin Lesions, No rash Neuro : No Weakness, No Numbness, No Paresthesias, No Loss of Consciousness, No Dizziness, No Headache Psych : No Anxiety/Panic, No Depression, No SI/HI/AH/VH, No Social Issues, Heme/Lymph: No Bruising, No Bleeding,No Lymphadenopathy Endocrine : No Polyuria, No Polydipsia, No Temperature Intolerance [facility] Past Medical History Medical History Chronic sinusitis Dizziness GERD (gastroesophageal reflux disease) History of ectopic Iron deficiency anemia due to chronic blood loss Left knee pain Mild asthma Tachycardia Surgical History H/O tubal ligation History of History of esophagogastroduodenoscopy (EGD) Family History Family History Father Diabetes Mother No problems noted. Maternal Grandmother Hypertension Maternal Grandfather Hypertension Lung cancer Paternal Grandfather Hypertension Paternal Grandmother Hypertension Social History Social History Household Members: Spouse and Children Housing: House Are you a primary doggy daycare activities director to a significant other at home: No Do you presently have visiting nurse or other home services: Yes Alcohol intake: never Patient Tobacco Use Status: Never used Tobacco e-Cigarette/Vaping Use: Never Used Second Hand Smoke Exposure: No Advance Directives: No Advance Directives Information Provided: No Patient : No service: No Current occupational status: unemployed Current occupation: Right handed Gender identity: Female Cognitive needs: No Hearing needs: No Vision needs: No Physical Exam ED Vital Signs: Vital Signs - 24 hr 09/18/21 18:42 Temperature 98.6 F Pulse Rate 85 Respiratory Rate 16 Blood Pressure 124/80 Pulse Oximetry 99 BMI result Body Mass Index 24.0 Const Other: Appearance: Alert. Oriented X3. No acute distress. Eyes: Pupils equal, round and reactive to light. ENT: Pharynx normal. Neck: Normal inspection. Neck supple. No lymph nodes noted. No crepitus CVS: Normal heart rate and rhythm. Pulses normal. Normal S1 and S2 Respiratory: No respiratory distress. Breath sounds normal. No Wheezing. No rales Abdomen: Soft and nontender. No rigidity. No distention. Skin: Skin warm and dry. Normal skin color. Normal skin turgor. Extremities: No lower extremity edema. No Lacerations. No Rash Neuro: Oriented X 3. No motor deficit. No sensory deficit. Moving all extremities. No slurred speech. CN 2 through 12 grossly intact Psych: calm, cooperative, normal affect Course Course Course Narrative: COVID/influenza test pending, rapid strep pending and chest x-ray pending I discussed the labs and imaging with the patient, patient tested positive for influenza. I discussed the advantages versus disadvantages of Tamiflu. Patient decided to go ahead and try it Medical Decision Making Lab Data Labs: Lab Results 09/18/21 09/18/21 09/18/21 Range/Units 18:55 18:55 18:55 COVID-19 (MARGARITO) Negative (Negative) COVID-19 Clin Com See Note Influenza Type A (ELLEN) Positive A (Negative) Influenza Type B (ELLEN) Negative (Negative) Influenza A & B Note See Note S. pyogenes GrpA ELLEN Negative (Negative) Discharge Plan Discharge Clinical Impression: Influenza A Patient Disposition: Home, Self-Care Instructions: Influenza (ED) Additional Instructions: Please follow-up with your primary care physician tomorrow. If you have any worsening or new symptoms, please return to the emergency room or call 911 Prescriptions: New oseltamivir [Tamiflu] 75 mg capsule 75 mg PO BID 5 Days Qty: 9 0RF No Action albuterol sulfate 90 mcg/actuation HFA aerosol inhaler 90 mcg inhalation NEEDED 0RF omeprazole 40 mg capsule,delayed release(DR/EC) 40 mg PO DAILY 90 Days Qty: 90 1RF meclizine 25 mg tablet 25 mg PO DAILY PRN (Reason: motion sickness) 7 Days Qty: 7 0RF amoxicillin-pot clavulanate 875-125 mg tablet 1 tab PO BID 7 Days Qty: 14 0RF
[2021-09-18 19:18] LABS: COVID-19 Test Negative (Negative); IDNOW Serial# 16C4AD1C
[2021-09-18 19:19] LABS: IDNOW Serial# 08D9AD1C; Influenza A Positive (Negative); Influenza B2 Negative (Negative); Strep A Nucleic Acid Negative (Negative)
[2021-09-18] MEDS: Oseltamivir Phosphate 75 MG CAPSULE PO (19:51)
== END 2021-09-18 19:53 | disposition home or self-care (01) ==
PROVIDERS: Emergency Provider Emergency Medicine; PCP Internal Medicine
DX: J10.1 Influenza due to other identified influenza virus with other respiratory manifestations (principal); J45.909 Unspecified asthma, uncomplicated; Z20.822 Contact with and (suspected) exposure to COVID-19
CPT/HCPCS: 71045; 87502; 87635; 87651; 99283

== ENCOUNTER 2021-11-01 14:37 | Outpatient (REF) | payer OTHER, SELFPAY ==
[2021-11-01 15:01] LABS: MANUAL DIFF FLAG NO
[2021-11-01 15:48] LABS: Basophils Percent Auto 1.4 % (0-2); Eosinophils Absolute Auto 0.2 X10*3/uL (0.0-0.4); Eosinophils Percent Auto 7.6 % (0-4); Hematocrit 37.2 % (37.0-47.0); Hemoglobin 11.8 g/dl (12.0-16.0); Imm Gran Abs Auto 0.01 X10*3/uL (0.00-0.03); Imm Gran Pct Auto 0.3 % (0.0-0.4); Lymphocytes Absolute Auto 1.3 X10*3/uL (1.2-4.9); Mean Corpuscular HGB Conc 31.7 g/dl (31.0-35.0); Mean Corpuscular Hemoglobin 29.7 pg (27.0-33.0); Mean Corpuscular Volume 93.7 fL (80.0-98.0); Mean Platelet Volume 10.1 fL (9.4-12.3); Monocytes Absolute Auto 0.3 X10*3/uL (0.1-1.2); Neutrophils Absolute Auto 1.1 x10*3/uL (2.0-8.3); Neutrophils Percent Auto 36.7 % (45-73); Platelet Count 277 X10*3/uL (160-400); Red Blood Count 3.97 X10*6/uL (4.20-5.50); Red Cell Distribution Width 13.2 % (11.0-16.0); White Blood Count 2.9 X10*3/uL (4.8-10.8)
[2021-11-01 16:10] LABS: Alanine Aminotransferase 14 U/L (0-31); Alkaline Phosphatase 54 U/L (39-117); Anion Gap 11 (12-20); Aspartate Amino Transferase 16 U/L (5-31); Bilirubin Total 0.6 mg/dL (0.0-1.0); Blood Urea Nitrogen 8 mg/dL (9-16); Calcium 9.2 mg/dL (8.4-10.2); Carbon Dioxide 25 mmol/L (22-29); Chloride 107 mmol/L (96-108); Estimated Glomerular Filt Rate > 60; Glucose Random 73 mg/dL (60-115); Potassium 3.8 mmol/L (3.3-5.1); Sodium 139 mmol/L (135-145); Total Protein 7.1 g/dL (6.5-8.0)
[2021-11-01 16:32] LABS: Ferritin 45 ng/mL (10-250)
== END 2021-11-01 14:38 | disposition home or self-care (01) ==
LOC: HO.LAB 14:37
PROVIDERS: Internal Medicine; Absent Provider Internal Medicine Medical Oncology; Visit Provider Internal Medicine Pulmonary Disease
DX: R06.00 Dyspnea, unspecified (principal); D64.9 Anemia, unspecified; E55.9 Vitamin D deficiency, unspecified
CPT/HCPCS: 36415; 80053; 82306; 82728; 85025; 99212

== ENCOUNTER → 2021-11-04 14:07 | Outpatient (BNVA) | payer OTHER, SELFPAY | PROVIDERS: Visit Provider Obstetrics & Gynecology | DX: N93.9 Abnormal uterine and vaginal bleeding, unspecified (principal) | CPT/HCPCS: 99212 ==

== ENCOUNTER 2022-01-18 00:36 | Emergency (ER) | payer OTHER, SELFPAY ==
[2022-01-18 01:14] VITALS: BP 138/94; PULSE 85; RESP 18; TEMP 36.9; O2SAT 100; BMI 24.6
[2022-01-18 01:40] LABS: Hematocrit 35.6 % (37.0-47.0); Hemoglobin 11.9 g/dl (12.0-16.0); Mean Corpuscular HGB Conc 33.4 g/dl (31.0-35.0); Mean Corpuscular Hemoglobin 31.1 pg (27.0-33.0); Mean Platelet Volume 9.3 fL (9.4-12.3); Platelet Count 261 X10*3/uL (160-400); Red Blood Count 3.83 X10*6/uL (4.20-5.50); Red Cell Distribution Width 11.8 % (11.0-16.0); White Blood Count 4.6 X10*3/uL (4.8-10.8)
[2022-01-18 01:56] LABS: COVID-19 Test Negative (Negative)
[2022-01-18 01:56] LABS: Alanine Aminotransferase 12 U/L (0-31); Albumin Level 4.3 g/dL (3.5-5.0); Alkaline Phosphatase 61 U/L (39-117); Anion Gap 14 (12-20); Aspartate Amino Transferase 16 U/L (5-31); Bilirubin Total 0.4 mg/dL (0.0-1.0); Blood Urea Nitrogen 13 mg/dL (9-16); Calcium 9.1 mg/dL (8.4-10.2); Carbon Dioxide 25 mmol/L (22-29); Chloride 105 mmol/L (96-108); Creatinine Clr Calc Pharmacy 70.1; Estimated Glomerular Filt Rate > 60; Glucose Random 124 mg/dL (60-115); Potassium 4.1 mmol/L (3.3-5.1); Sodium 140 mmol/L (135-145); Total Protein 7.6 g/dL (6.5-8.0)
[2022-01-18 03:54] VITALS: BP 136/76; PULSE 76; RESP 18; TEMP 37.1; O2SAT 100
--- NOTE | 2022-01-18 05:07 | ED.GENADULT ---
HPI - General Adult General Chief complaint: Weakness Stated complaint: headaches, weak, feet pain Time Seen by Provider: 01/18/22 05:02 Source: patient Mode of arrival: ambulatory Limitations: no limitations History of Present Illness HPI narrative: Patient multiple complaints diffuse abdominal pain , constipation, diffuse body aches feels that her iron level is low and she is anemic no chest pain no shortness of breath. No active bleeding at this time patient is supposed to be on iron tablets not taking it for a while Related Data Home Medications Medication Instructions Recorded Confirmed albuterol sulfate 90 mcg/actuation 90 mcg inhalation NEEDED 03/01/20 08/22/21 aerosol inhaler Previous Rx's Medication Instructions Recorded meclizine 25 mg tablet 25 mg PO DAILY PRN motion sickness 08/22/21 7 days #7 tabs omeprazole 40 mg capsule,delayed 40 mg PO DAILY 90 days #90 caps 10/22/21 release cholecalciferol (vitamin D3) 50 50 mcg PO DAILY 90 days #90 caps 11/02/21 mcg (2,000 unit) capsule naproxen 500 mg tablet 500 mg PO BID 90 days #180 tabs 11/12/21 tranexamic acid 650 mg tablet 1,300 mg PO TID 5 days #30 tabs 12/09/21 (Lysteda) bisacodyl 5 mg tablet,delayed 10 mg PO DAILY PRN constipation 01/18/22 release (Dulcolax (bisacodyl)) #30 tabs polyethylene glycol 3350 17 17 g PO DAILY PRN constipation 01/18/22 gram/dose oral powder (Miralax) #510 grams Allergies Allergy/AdvReac Type Severity Reaction Status Date / Time Beef Containing Products Allergy Intermediate ITCHY Verified 11/01/21 14:40 [BEEF CONTAINING PRODUCTS] lactose Allergy Mild Itching Verified 11/01/21 14:40 tramadol [TRAMADOL] Allergy Unknown TACHYCARDIA/SOB, Verified 11/01/21 14:40 anaphylaxis shellfish Allergy Unknown anaphylaxis Uncoded 08/22/21 15:13 Review of Systems Review of Systems: Yes all other systems are reviewed and are negative [facility] Past Medical History Medical History Chronic sinusitis Dizziness GERD (gastroesophageal reflux disease) History of ectopic Iron deficiency anemia due to chronic blood loss Left knee pain Mild asthma Tachycardia Surgical History H/O tubal ligation History of History of esophagogastroduodenoscopy (EGD) Family History Family History Father Diabetes Mother No problems noted. Maternal Grandmother Hypertension Maternal Grandfather Hypertension Lung cancer Paternal Grandfather Hypertension Paternal Grandmother Hypertension Social History Social History Household Members: Spouse and Children Housing: House Are you a primary care transitions manager to a significant other at home: No Do you presently have visiting nurse or other home services: Yes Alcohol intake: never Patient Tobacco Use Status: Never used Tobacco e-Cigarette/Vaping Use: Never Used Second Hand Smoke Exposure: No Use of substances other than those prescribed or required for medical reasons: No Advance Directives: No Patient : No service: No Current occupational status: unemployed Current occupation: Right handed Gender identity: Female Cognitive needs: No Hearing needs: No Vision needs: No Physical Exam ED Vital Signs: Vital Signs - 24 hr 01/18/22 01:14 01/18/22 03:54 Temperature 98.4 F 98.8 F Pulse Rate 85 76 Respiratory Rate 18 18 Blood Pressure 138/94 H 136/76 Pulse Oximetry 100 100 Oxygen Delivery Method Room Air Room Air BMI result Body Mass Index 24.6 Appearance: Alert. Oriented X3. No acute distress. Anxious Eyes: No pallor ENT: Pharynx normal. Oral Mucosa moist Neck: Normal inspection. Neck supple. CVS: Normal heart rate and rhythm. Pulses normal. Respiratory: No respiratory distress. Equal air entry bilateral, no wheezing/rales/rhonchi Abdomen: Soft and nontender. Bowel sounds are present, no mass palpable, no CVA tenderness Skin: Skin warm and dry. Normal skin color. Normal skin turgor. Extremities: No lower extremity edema. No calf tenderness Neuro: Oriented X 3. No motor deficit. Medical Decision Making MDM Narrative Medical decision making narrative: Patient with constipation which is chronic hemoglobin stable 11.9 will discharge patient home Lab Data Lab results reviewed: Yes I reviewed the patient's lab results. Result diagrams: 01/18/22 01:32 01/18/22 01:32 Labs: Lab Results 01/18/22 01/18/22 01/18/22 Range/Units 01:29 01:32 01:32 WBC 4.6 L (4.8-10.8) X10*3/uL RBC 3.83 L (4.20-5.50) X10*6/uL Hgb 11.9 L (12.0-16.0) g/dl Hct 35.6 L (37.0-47.0) % MCV 93.0 (80.0-98.0) fL MCH 31.1 (27.0-33.0) pg MCHC 33.4 (31.0-35.0) g/dl RDW 11.8 (11.0-16.0) % Plt Count 261 (160-400) X10*3/uL MPV 9.3 L (9.4-12.3) fL Absolute Nucleated RBC 0.000 (0.0-0.012) X10*3/uL Nucleated RBC % (auto) 0.0 (0.0-0.2) /100WBC Sodium 140 (135-145) mmol/L Potassium 4.1 (3.3-5.1) mmol/L Chloride 105 (96-108) mmol/L Carbon Dioxide 25 (22-29) mmol/L Anion Gap 14 (12-20) BUN 13 D (9-16) mg/dL Creatinine 0.73 (0.5-1.4) mg/dL Estim Creat Clear Calc 70.1 Estimated GFR > 60 Random Glucose 124 H (60-115) mg/dL Calcium 9.1 (8.4-10.2) mg/dL Total Bilirubin 0.4 (0.0-1.0) mg/dL AST 16 (5-31) U/L ALT 12 (0-31) U/L Alkaline Phosphatase 61 (39-117) U/L Total Protein 7.6 (6.5-8.0) g/dL Albumin 4.3 (3.5-5.0) g/dL COVID-19 (MARGARITO) Negative (Negative) COVID-19 Clin Com See Note Discharge Plan Discharge Clinical Impression: Chronic idiopathic constipation Patient Disposition: Home, Self-Care Instructions: Constipation (ED) Additional Instructions: Stool softener as advised Follow-up with PCP Prescriptions: New polyethylene glycol 3350 [Miralax] 17 gram/dose powder 17 g PO DAILY PRN (Reason: constipation) Qty: 510 0RF bisacodyl [Dulcolax (bisacodyl)] 5 mg tablet,delayed release (DR/EC) 10 mg PO DAILY PRN (Reason: constipation) Qty: 30 0RF No Action omeprazole 40 mg capsule,delayed release(DR/EC) 40 mg PO DAILY 90 Days Qty: 90 1RF cholecalciferol (vitamin D3) 50 mcg (2,000 unit) capsule 50 mcg PO DAILY 90 Days Qty: 90 1RF naproxen 500 mg tablet 500 mg PO BID 90 Days Qty: 180 1RF tranexamic acid [Lysteda] 650 mg tablet 1,300 mg PO TID 5 Days Qty: 30 2RF Rx Instructions: Start 1st day of menses and take it up to 3-5 days of menses. albuterol sulfate 90 mcg/actuation HFA aerosol inhaler 90 mcg inhalation NEEDED meclizine 25 mg tablet 25 mg PO DAILY PRN (Reason: motion sickness) 7 Days Qty: 7 0RF Interventions: ED Discharge Assessment Last Done: 01/18/22 05:47 Discharge Date/Time: 01/18/22 05:50 Print Language: Tajik
[2022-01-18] MEDS: bisacodyL 5 MG TABLET.DR 10 MG PO (05:28)
== END 2022-01-18 05:50 | disposition home or self-care (01) ==
PROVIDERS: Emergency Provider Internal Medicine; PCP Internal Medicine
DX: K59.04 Chronic idiopathic constipation (principal); Z20.822 Contact with and (suspected) exposure to COVID-19; D50.8 Other iron deficiency anemias
CPT/HCPCS: 36415; 80053; 85027; 87635; 99283; 99284

== ENCOUNTER 2022-01-31 16:05 | Outpatient (REF) | payer OTHER, SELFPAY ==
--- NOTE | ~2022-01-31 | XR_ITS ---
EXAMINATION: XR SCAPULA, LEFT CLINICAL INFORMATION: Left shoulder pain COMPARISON: 07/30/2018 TECHNIQUE: AP and scapular Y views of the left scapula. FINDINGS: The bones and soft tissues are normal. No scapular fracture. Glenohumeral and acromioclavicular alignment is normal. XR/XR scapula LT IMPRESSION: Normal left scapula.
[2022-01-31 17:14] LABS: Alanine Aminotransferase 12 U/L (0-31); Albumin Level 3.9 g/dL (3.5-5.0); Alkaline Phosphatase 56 U/L (39-117); Anion Gap 13 (12-20); Aspartate Amino Transferase 16 U/L (5-31); Bilirubin Total 0.8 mg/dL (0.0-1.0); Blood Urea Nitrogen 9 mg/dL (9-16); Calcium 8.8 mg/dL (8.4-10.2); Carbon Dioxide 25 mmol/L (22-29); Chloride 106 mmol/L (96-108); Cholesterol 194 mg/dL; Estimated Glomerular Filt Rate > 60; Glucose Fasting 85 mg/dL (60-99); HDL Cholesterol 49 mg/dL; LDL Cholesterol Calculated 133 mg/dl; Potassium 4.1 mmol/L (3.3-5.1); Sodium 140 mmol/L (135-145); Total Protein 7.1 g/dL (6.5-8.0); Triglycerides 62 mg/dL
[2022-01-31 17:34] LABS: Thyroid Stimulating Hormone 0.95 uIU/mL (0.32-4.0); Vitamin D 25-OH Total 25.8 ng/mL (>30)
[2022-01-31 17:50] LABS: Folate 15.9 ng/mL (> or = 4.0); Vitamin B12 290 pg/mL (200-900)
== END 2022-01-31 16:06 | disposition home or self-care (01) ==
LOC: HO.XRAY 16:05
PROVIDERS: PCP Internal Medicine; Visit Provider Internal Medicine
DX: Z00.00 Encounter for general adult medical examination without abnormal findings (principal); R00.0 Tachycardia, unspecified; E55.9 Vitamin D deficiency, unspecified; R53.83 Other fatigue; M89.8X1 Other specified disorders of bone, shoulder
CPT/HCPCS: 36415; 73010; 80053; 80061; 82306; 82607; 82746; 84443

== ENCOUNTER 2022-02-04 16:38 | Outpatient (REF) | payer OTHER, SELFPAY ==
--- NOTE | ~2022-02-04 | MR_ITS ---
EXAMINATION: MRI BRAIN WITHOUT CONTRAST CLINICAL INFORMATION: Headache. COMPARISON: MRI brain without contrast 07/19/2019. TECHNIQUE: Multiplanar MR imaging of the brain was performed and a contrast. FINDINGS: There is no acute territorial infarct. No pathological magnetic susceptibility artifact. Intracranial vascular flow voids are maintained. There is no intracranial mass effect or midline shift. No abnormal extra-axial collection. Lateral and third ventricles are normal. No hydrocephalus. Midline structures including the cervicomedullary junction are normal. No acute bone marrow signal changes. There is no mastoid or middle ear effusion. Mild to moderate paranasal sinus disease primarily affecting the ethmoid air cells and the alveolar recess of the left maxillary sinus. Globes and orbits are symmetric. MR/MR head/brain wo con IMPRESSION: Normal brain MRI.
== END 2022-02-04 16:39 | disposition home or self-care (01) ==
LOC: HO.MRI 16:38
PROVIDERS: Visit Provider Internal Medicine
DX: R51.9 Headache, unspecified (principal)
CPT/HCPCS: 70551

== ENCOUNTER → 2022-02-11 14:52 | Outpatient (BNVA) | payer OTHER, SELFPAY | PROVIDERS: PCP Internal Medicine; Referring Provider Internal Medicine; Visit Provider Nurse Practitioner | DX: R10.9 Unspecified abdominal pain (principal); K59.04 Chronic idiopathic constipation; K59.9 Functional intestinal disorder, unspecified; K21.9 Gastro-esophageal reflux disease without esophagitis; R11.2 Nausea with vomiting, unspecified; K64.9 Unspecified hemorrhoids | CPT/HCPCS: 99212 ==

== ENCOUNTER 2022-03-29 19:18 | Emergency (ER) | payer OTHER, SELFPAY ==
[2022-03-29 19:23] VITALS: BP 125/58; PULSE 71; RESP 17; TEMP 36.6; O2SAT 100; BMI 28.2
--- NOTE | 2022-03-29 20:06 | ED.URI ---
HPI - URI/Sore Throat General Chief Complaint: Upper Respiratory Symptoms Stated Complaint: sore throat,congestion Time Seen by Provider: 03/29/22 20:06 Source: patient Mode of arrival: ambulatory Limitations: language barrier History of Present Illness HPI Narrative: A 42-year-old female presents with 3 days of upper respiratory symptoms, sore throat, ear pain, difficulty sleeping, congestion, and fatigue. She has had multiple sick contacts, and has had multiple negative COVID tests. MD elicited complaint: fever, sore throat, sinus pain and other (Bilateral earaches) Pertinent past history: asthma Consistency: constant Severity: moderate Pain scale (0-10): 7 Description of mucous: clear Able to tolerate fluids by mouth: Yes Exacerbating factors: swallowing and speaking Relieving factors: nothing Context: sick contacts Associated symptoms: fever, chills, myalgias, headache, rhinorrhea, nasal congestion, sore throat, cough and ear pain Treatments prior to arrival: none Related Data Home Medications Medication Instructions Recorded Confirmed albuterol sulfate 90 mcg/actuation 90 mcg inhalation NEEDED 03/01/20 01/21/22 aerosol inhaler fluticasone propionate 115 2 puff inhalation BID 02/11/22 mcg-salmeterol 21 mcg/actuation HFA inhaler (Advair HFA) ipratropium 0.5 mg-albuterol 3 mg ml inhalation BID 02/11/22 (2.5 mg base)/3 mL nebulization soln Previous Rx's Medication Instructions Recorded omeprazole 40 mg capsule,delayed 40 mg PO DAILY 90 days #90 caps 10/22/21 release cholecalciferol (vitamin D3) 50 50 mcg PO DAILY 90 days #90 caps 11/02/21 mcg (2,000 unit) capsule naproxen 500 mg tablet 500 mg PO BID 90 days #180 tabs 11/12/21 polyethylene glycol 3350 17 17 g PO DAILY PRN constipation 01/18/22 gram/dose oral powder (Miralax) #510 grams bisacodyl 10 mg rectal suppository 10 mg [place] DAILY #50 ea 02/11/22 hydrocortisone 2.5 % topical cream 1 appl [place] BID PRN hemorrhoids #30 02/11/22 with perineal applicator grams (Proctosol HC) metoclopramide HCl 5 mg tablet 5 mg PO TID #90 tabs 02/11/22 (Reglan) tranexamic acid 650 mg tablet 1,300 mg PO TID 5 days #30 tabs 03/03/22 (Lysteda) cetirizine 10 mg tablet 10 mg PO DAILY 90 days #90 tabs 03/17/22 amoxicillin 875 mg-potassium 1 tab PO Q12H 10 days #20 tabs 03/29/22 clavulanate 125 mg tablet Allergies Allergy/AdvReac Type Severity Reaction Status Date / Time Beef Containing Products Allergy Intermediate ITCHY Verified 02/11/22 15:00 [BEEF CONTAINING PRODUCTS] lactose Allergy Mild Itching Verified 02/11/22 15:00 tramadol [TRAMADOL] Allergy Unknown TACHYCARDIA/SOB, Verified 02/11/22 15:00 anaphylaxis shellfish Allergy Unknown anaphylaxis Uncoded 01/21/22 17:31 Review of Systems Review of Systems: Constitutional: Positive Fever, positive Chills, positive fatigue ENT/Mouth: Positive Ear Pain, No Hoarseness, Modi sore throat Eyes: No Eye Pain, No Swelling, No Redness, No Foreign Body Cardiovascular: No Chest Pain, No SOB Respiratory: Modi Cough, No Dyspnea Gastrointestinal: No Nausea, No Vomiting, No Diarrhea, No abdominal Pain Genitourinary: No Dysuria, No Hematuria Musculoskeletal: No joint pain, No Myalgias, No Joint Swelling Skin: No Skin lacerations, No rash Neuro: No Weakness, No Numbness, No Paresthesias, No Loss of Consciousness, No Dizziness, No Headache Psych: No Anxiety/Panic, No Depression Heme/Lymph: no easy bruising, no Lymphadenopathy Endocrine: No Polyuria, No Polydipsia Yes all other systems are reviewed and are negative [facility] Past Medical History Attestation statement: The following information was validated with the patient. Source: old records reviewed Medical History Chronic sinusitis Dizziness GERD (gastroesophageal reflux disease) History of ectopic Iron deficiency anemia due to chronic blood loss Left knee pain Mild asthma Tachycardia Surgical History H/O tubal ligation History of History of esophagogastroduodenoscopy (EGD) Family History Family History Father Diabetes Mother Diabetes Maternal Grandmother Hypertension Maternal Grandfather Hypertension Lung cancer Paternal Grandfather Hypertension Paternal Grandmother Hypertension Social History Social History Household Members: Spouse and Children Housing: House Are you a primary wild animal caretaker to a significant other at home: No Do you presently have visiting nurse or other home services: Yes Alcohol intake: never Patient Tobacco Use Status: Never used Tobacco e-Cigarette/Vaping Use: Never Used Second Hand Smoke Exposure: No Advance Directives: No service: No Current occupational status: unemployed Current occupation: Right handed Gender identity: Female Cognitive needs: No Hearing needs: No Vision needs: No Physical Exam Vital Signs: Vital Signs: Last Vital Signs Temp 98.7 F 03/29/22 21:15 Pulse 75 03/29/22 21:15 Resp 18 03/29/22 21:15 BP 123/61 03/29/22 21:15 Pulse Ox 100 03/29/22 21:15 O2 Del Method 03/29/22 21:15 BMI result Body Mass Index 28.2 Appearance: Alert. Oriented X3. Mild distress. Appears fatigued. Eyes: Pupils equal, round and reactive to light. Sclera nonicteric. ENT: Pharynx erythematous with bilateral tonsillar swelling or exudates. Centor scale 3. Bilateral tympanic erythematous, bulging with effusions. Neck: Normal inspection. Neck supple. Anterior posterior cervical lymphadenopathy. No nuchal rigidity. No mastoid tenderness noted. CVS: Normal heart rate and rhythm. Pulses normal. Respiratory: No respiratory distress. Breath sounds normal. Abdomen: Soft and nontender. Skin: Skin warm and dry. Normal skin color. Normal skin turgor. Extremities: Gait well-balanced well coordinated. Neuro: No motor deficit. No sensory deficit. Cranial nerves 2-12 intact. Course Course Course Narrative: 42-year-old female presents with upper respiratory symptoms. Physical exam is consistent with pharyngitis, and bilateral otitis media. Patient is afebrile, appears nontoxic, however fatigue. Patient has had multiple sick contacts, also has had recurrent ear infections in the past. COVID influenza RSV are negative, labs were drawn while she was in the emergency department waiting room. Plan of care is to treat with Augmentin. Centor scale 3. Patient verbalized understanding of and agrees to plan of care discharge home. Verbalized understanding of signs symptoms indicating need for emergent intervention. MDM - URI/Sore Throat Differential Diagnosis Differential diagnosis: Likely upper respiratory infection, otitis media, sinusitis, viral infection, bronchitis, influenza and pharyngitis Medical Records Attestation: I reviewed the patient's medical records. Lab Data Attestation: I reviewed the patient's lab results. Labs: Lab Results 03/29/22 Range/Units 19:31 Influenza Type A (PCR) NEGATIVE (Negative) Influenza Type B (PCR) NEGATIVE (Negative) RSV RNA Qual (PCR) NEGATIVE (Negative) SARS-CoV-2 RNA (RT-PCR) NEGATIVE (Negative) Discharge Plan Discharge Clinical Impression: Upper respiratory infection, Otitis media, Pharyngitis Patient Disposition: Home, Self-Care Instructions: Pharyngitis (ED), Ear Infection (ED), Upper Respiratory Infection (ED) Additional Instructions: You were evaluated for upper respiratory symptoms. We are treating you with Augmentin for recurrent ear infections. Please take Augmentin 875 mg twice a day for the next 10 days. Alternate Tylenol 650 mg every 6 hours and Motrin 600 mg every 6 hours as needed for pain and fever management. Her last dose of Motrin was given at 21:00, your next dose is due at 03:00. Please consider taking Tylenol at midnight you can have some kind of pain and fever management every 3 hours. Write down what time you take these medications to accidental overdose. Drink plenty of fluids. Thank you for choosing this emergency department for evaluation. Please follow-up with primary care physician as needed. Return to the emergency department for any new, concerning, or worsening symptoms. Prescriptions: New amoxicillin-pot clavulanate 875-125 mg tablet 1 tab PO Q12H 10 Days Qty: 20 0RF No Action omeprazole 40 mg capsule,delayed release(DR/EC) 40 mg PO DAILY 90 Days Qty: 90 1RF cholecalciferol (vitamin D3) 50 mcg (2,000 unit) capsule 50 mcg PO DAILY 90 Days Qty: 90 1RF naproxen 500 mg tablet 500 mg PO BID 90 Days Qty: 180 1RF tranexamic acid [Lysteda] 650 mg tablet 1,300 mg PO TID 5 Days Qty: 30 2RF Rx Instructions: Start 1st day of menses and take it up to 3-5 days of menses. cetirizine 10 mg tablet 10 mg PO DAILY 90 Days Qty: 90 1RF polyethylene glycol 3350 [Miralax] 17 gram/dose powder 17 g PO DAILY PRN (Reason: constipation) Qty: 510 0RF albuterol sulfate 90 mcg/actuation HFA aerosol inhaler 90 mcg inhalation NEEDED Advair HFA 115-21 mcg/actuation HFA aerosol inhaler 2 puff inhalation BID ipratropium-albuterol 0.5 mg-3 mg(2.5 mg base)/3 mL solution for nebulization inhalation BID metoclopramide HCl [Reglan] 5 mg tablet 5 mg PO TID Qty: 90 3RF hydrocortisone [Proctosol HC] 2.5 % cream with perineal applicator 1 appl [place] BID PRN (Reason: hemorrhoids) Qty: 30 3RF bisacodyl 10 mg suppository 10 mg [place] DAILY Qty: 50 6RF Interventions: ED Discharge Assessment Last Done: 03/29/22 21:20 Discharge Date/Time: 03/29/22 21:21
[2022-03-29 20:16] LABS: Influenza A PCR NEGATIVE (Negative); Influenza B PCR NEGATIVE (Negative); Resp Syncy Virus RNA Qual PCR NEGATIVE (Negative); SARS COV2 PCR INHOUSE NEGATIVE (Negative)
[2022-03-29 21:15] VITALS: BP 123/61; PULSE 75; RESP 18; TEMP 37.1; O2SAT 100
[2022-03-29] MEDS: Ibuprofen 600 MG TABLET PO (21:18)
== END 2022-03-29 21:21 | disposition home or self-care (01) ==
PROVIDERS: Emergency Provider Emergency Medicine Emergency Medical Services; PCP Internal Medicine
DX: J02.8 Acute pharyngitis due to other specified organisms (principal); H66.93 Otitis media, unspecified, bilateral; M79.10 Myalgia, unspecified site; R05.9 Cough, unspecified; Z20.822 Contact with and (suspected) exposure to COVID-19; Z79.899 Other long term (current) drug therapy
CPT/HCPCS: 0241U; 99283

== ENCOUNTER 2022-06-06 10:01 | Outpatient (REF) | payer OTHER, SELFPAY ==
--- NOTE | ~2022-06-06 | US_ITS ---
EXAMINATION: US ABDOMEN COMPLETE CLINICAL INFORMATION: Unspecified abdominal pain. COMPARISON: CT abdomen and pelvis 01/11/2021. Ultrasound abdomen complete 01/11/2021. TECHNIQUE: Real-time imaging of the abdominal viscera. FINDINGS: PANCREAS: Normal. ABDOMINAL AORTA: The proximal, mid, and distal segments are normal in caliber. INFERIOR VENA CAVA: Visualized portions are normal. LIVER: The liver is normal in size. The liver contour is normal. Increased echogenicity. No focal hepatic lesion. There is no intrahepatic biliary duct dilatation seen. GALLBLADDER: Normal. The gallbladder is physiologically distended without evidence of stones, sludge, polyps, wall thickening or pericholecystic fluid. COMMON BILE DUCT: Normal in caliber measuring 0.3 cm in diameter. RIGHT KIDNEY: Normal. No hydronephrosis. No renal calculi or focal parenchymal lesions. The kidney measures 10.0 cm in maximum dimension. LEFT KIDNEY: Normal. No hydronephrosis. No renal calculi or focal parenchymal lesions. The kidney measures 10.2 cm in maximum dimension. SPLEEN: Normal. The spleen measures 9.4 cm in maximum dimension. FREE FLUID: None. US/US abdomen complete IMPRESSION: Increased echogenicity of the liver is nonspecific and could be seen in the setting of hepatic steatosis or hepatocellular disease. Correlate with liver function tests.
== END 2022-06-06 10:02 | disposition home or self-care (01) ==
LOC: HO.US 10:01
PROVIDERS: PCP Internal Medicine; Visit Provider Internal Medicine
DX: R10.9 Unspecified abdominal pain (principal)
CPT/HCPCS: 76700

== ENCOUNTER 2022-06-18 14:46 | Outpatient (REF) | payer OTHER, SELFPAY ==
--- NOTE | ~2022-06-18 | XR_ITS ---
EXAMINATION: XR SACRUM AND COCCYX CLINICAL INFORMATION: Sacrococcygeal disorders COMPARISON: None TECHNIQUE: 2 views of the sacrum and 2 views of the coccyx were obtained. FINDINGS: No acute fracture or dislocation. Sacroiliac joint spaces are maintained. Sacral arcuate lines are intact. Calcified phleboliths in the pelvis. XR/XR sacrum coccyx min 2V IMPRESSION: No acute osseous abnormality.
[2022-06-18 15:04] LABS: MANUAL DIFF FLAG NO
[2022-06-18 15:42] LABS: Basophils Absolute Auto 0.1 X10*3/uL (0.0-0.2); Basophils Percent Auto 1.8 % (0-2); Eosinophils Absolute Auto 0.2 X10*3/uL (0.0-0.4); Eosinophils Percent Auto 5.7 % (0-4); Hematocrit 37.6 % (37.0-47.0); Hemoglobin 12.2 g/dl (12.0-16.0); Imm Gran Abs Auto 0.01 X10*3/uL (0.00-0.03); Imm Gran Pct Auto 0.3 % (0.0-0.4); Lymphocytes Absolute Auto 1.6 X10*3/uL (1.2-4.9); Lymphocytes Percent Auto 48.2 % (20-40); Mean Corpuscular HGB Conc 32.4 g/dl (31.0-35.0); Mean Corpuscular Hemoglobin 30.5 pg (27.0-33.0); Mean Platelet Volume 9.8 fL (9.4-12.3); Monocytes Absolute Auto 0.3 X10*3/uL (0.1-1.2); Neutrophils Absolute Auto 1.2 x10*3/uL (2.0-8.3); Platelet Count 281 X10*3/uL (160-400); Red Cell Distribution Width 11.9 % (11.0-16.0); White Blood Count 3.3 X10*3/uL (4.8-10.8)
[2022-06-18 16:18] LABS: Iron 87 mcg/dL (30-160); Percent Iron Saturation 29 % (15-50); Total Iron Binding Capacity 295 mcg/dL (228-428); Unsaturated Iron Binding 208 ug/dL
[2022-06-18 16:35] LABS: Vitamin D 25-OH Total 23.4 ng/mL (>30)
[2022-06-18 16:48] LABS: Folate 13.9 ng/mL (> or = 4.0); Vitamin B12 361 pg/mL (200-900)
== END 2022-06-18 14:47 | disposition home or self-care (01) ==
LOC: HO.LAB 14:46
PROVIDERS: PCP Internal Medicine; Visit Provider Internal Medicine
DX: D64.9 Anemia, unspecified (principal); E55.9 Vitamin D deficiency, unspecified; E53.8 Deficiency of other specified B group vitamins; M53.3 Sacrococcygeal disorders, not elsewhere classified
CPT/HCPCS: 36415; 72220; 82306; 82607; 82746; 83540; 85025

== ENCOUNTER → 2022-06-24 15:09 | Outpatient (BNVA) | payer OTHER, SELFPAY | PROVIDERS: PCP Internal Medicine; Visit Provider Internal Medicine Pulmonary Disease | DX: J45.30 Mild persistent asthma, uncomplicated (principal); Z91.09 Other allergy status, other than to drugs and biological substances; Z79.899 Other long term (current) drug therapy | CPT/HCPCS: 99212 ==

== ENCOUNTER 2022-07-24 13:36 | Outpatient (REF) | payer OTHER, SELFPAY | END 2022-07-24 13:37 | disposition home or self-care (01) | LOC: HO.MDS 13:36 | PROVIDERS: Visit Provider Internal Medicine Pulmonary Disease | DX: J45.50 Severe persistent asthma, uncomplicated (principal) | CPT/HCPCS: 96372; J2357 ==

== ENCOUNTER 2022-07-25 11:34 | Outpatient (REF) | payer OTHER, SELFPAY | END 2022-07-25 11:35 | disposition home or self-care (01) | LOC: HO.MDS 11:34 | PROVIDERS: Visit Provider Internal Medicine Medical Oncology | DX: D50.0 Iron deficiency anemia secondary to blood loss (chronic) (principal); Z01.818 Encounter for other preprocedural examination; K58.9 Irritable bowel syndrome, unspecified; R10.9 Unspecified abdominal pain; R14.0 Abdominal distension (gaseous); K21.9 Gastro-esophageal reflux disease without esophagitis; N93.9 Abnormal uterine and vaginal bleeding, unspecified | CPT/HCPCS: 96365; 99212; J1756 ==

== ENCOUNTER 2022-07-29 13:12 | Outpatient (REF) | payer OTHER, SELFPAY | END 2022-07-29 13:13 | disposition home or self-care (01) | LOC: HO.MDS 13:12 | PROVIDERS: Visit Provider Internal Medicine Medical Oncology | DX: D50.9 Iron deficiency anemia, unspecified (principal) | CPT/HCPCS: 96365; J1756 ==

== ENCOUNTER 2022-08-07 15:26 | Outpatient (REF) | payer OTHER, SELFPAY | END 2022-08-07 15:27 | disposition home or self-care (01) | LOC: HO.MDS 15:26 | PROVIDERS: Visit Provider Internal Medicine Medical Oncology | DX: J45.50 Severe persistent asthma, uncomplicated (principal) | CPT/HCPCS: 96365; 96372; J1756; J2357 ==

== ENCOUNTER 2022-08-14 14:09 | Outpatient (REF) | payer OTHER, SELFPAY | END 2022-08-14 14:10 | disposition home or self-care (01) | LOC: HO.MDS 14:09 | PROVIDERS: Visit Provider Internal Medicine Medical Oncology | DX: D50.9 Iron deficiency anemia, unspecified (principal) | CPT/HCPCS: 96365; J1756 ==

== ENCOUNTER 2022-08-21 14:12 | Outpatient (REF) | payer OTHER, SELFPAY | END 2022-08-21 14:13 | disposition home or self-care (01) | LOC: HO.MDS 14:12 | PROVIDERS: Visit Provider Internal Medicine Pulmonary Disease | DX: J45.50 Severe persistent asthma, uncomplicated (principal) | CPT/HCPCS: 96372; J2357 ==

== ENCOUNTER 2022-09-05 14:10 | Outpatient (REF) | payer OTHER, SELFPAY | END 2022-09-05 14:11 | disposition home or self-care (01) | LOC: HO.MDS 14:10 | PROVIDERS: Visit Provider Internal Medicine Pulmonary Disease | DX: D50.9 Iron deficiency anemia, unspecified (principal); J45.50 Severe persistent asthma, uncomplicated | CPT/HCPCS: 96365; 96372; J1756; J2357 ==

== ENCOUNTER 2022-09-12 15:57 | Outpatient (REF) | payer OTHER, SELFPAY | END 2022-09-12 15:58 | disposition home or self-care (01) | LOC: HO.MDS 15:57 | PROVIDERS: Visit Provider Internal Medicine Medical Oncology | DX: D50.9 Iron deficiency anemia, unspecified (principal) | CPT/HCPCS: 96365; J1756 ==

== ENCOUNTER → 2022-09-18 15:44 | Outpatient (BNVA) | payer OTHER, SELFPAY | PROVIDERS: PCP Internal Medicine; Visit Provider Nurse Practitioner | DX: K21.9 Gastro-esophageal reflux disease without esophagitis (principal); K58.9 Irritable bowel syndrome, unspecified | CPT/HCPCS: 99212 ==

== ENCOUNTER 2022-09-19 14:40 | Outpatient (REF) | payer OTHER, SELFPAY | END 2022-09-19 14:41 | disposition home or self-care (01) | LOC: HO.MDS 14:40 | PROVIDERS: Visit Provider Internal Medicine Pulmonary Disease | DX: J45.50 Severe persistent asthma, uncomplicated (principal) | CPT/HCPCS: 96372; J2357 ==

== ENCOUNTER 2022-10-03 14:40 | Outpatient (REF) | payer OTHER, SELFPAY | END 2022-10-03 14:41 | disposition home or self-care (01) | LOC: HO.MDS 14:40 | PROVIDERS: Visit Provider Internal Medicine Pulmonary Disease | DX: J45.50 Severe persistent asthma, uncomplicated (principal) | CPT/HCPCS: 96372; J2357 ==

== ENCOUNTER 2022-10-09 12:25 | Day surgery (SDC) | payer OTHER, SELFPAY ==
--- NOTE | 2022-10-08 14:18 | P.CONAN_ITS ---
Documented by User: Britni Nielson NP 10/08/22 14:20 HPI - Anesthesia Eval Consult details Narrative: 42yo F for Upper Endoscopy and Colonoscopy PMFSH Active Problems Active Problems: All Active Problems (Updated 10/03/22 @ 15:07 by Lidia Colón MD) Pre-op examination (Acute) IBS (irritable bowel syndrome) (Acute) Leucopenia (Acute) Transaminitis (Acute) Tachycardia (Acute) Sacral pain (Acute) Bleeding hemorrhoid (Acute) Pain of left scapula (Acute) Abdominal pain (Acute) Headache (Acute) Physical exam (Acute) Dizziness (Acute) Chronic sinusitis (Acute) Normochromic normocytic anemia (Acute) Iron deficiency anemia due to chronic blood loss (Acute) COVID-19 virus infection (Acute ~01/2021) Abnormal uterine bleeding (AUB) (Acute) Otitis media (Acute) Physical exam (Acute ~06/22/21) Back pain (Acute) Menorrhagia (Acute) Vitamin D deficiency (Acute) Anemia (Acute) Environmental allergies (Acute) Asthma (Acute) Muscular pain (Acute) Intermittent chest pain (Acute) Fatigue (Acute) Tachycardia (Acute) Abdominal cramping (Acute) GERD (gastroesophageal reflux disease) (Acute) Patellofemoral pain syndrome of left knee (Acute) Chronic idiopathic constipation (Acute) Left knee pain (Acute) Mild asthma (Acute) Past Medical History Medical History Chronic sinusitis Dizziness GERD (gastroesophageal reflux disease) History of ectopic Iron deficiency anemia due to chronic blood loss Left knee pain Mild asthma Tachycardia Family History Family History Father Diabetes Mother Diabetes Maternal Grandmother Hypertension Maternal Grandfather Hypertension Lung cancer Paternal Grandfather Hypertension Paternal Grandmother Hypertension Surgical History Surgical History H/O tubal ligation History of History of esophagogastroduodenoscopy (EGD) Social History Social History Household Members: Spouse and Children Housing: House Are you a primary patient care secretary to a significant other at home: No Do you presently have visiting nurse or other home services: Yes Alcohol intake: never Patient Tobacco Use Status: Never used Tobacco e-Cigarette/Vaping Use: Never Used Second Hand Smoke Exposure: No Use of substances other than those prescribed or required for medical reasons: No Are you DNR?: No Advance Directives: No Advance Directives Information Provided: Yes service: No Current occupational status: unemployed Current occupation: Right handed Gender identity: Female Cognitive needs: No Hearing needs: No Vision needs: No Meds Allergies Allergy/AdvReac Type Severity Reaction Status Date / Time Beef Containing Products Allergy Intermediate ITCHY Verified 10/09/22 12:34 [BEEF CONTAINING PRODUCTS] lactose Allergy Mild Itching Verified 10/09/22 12:34 tramadol [TRAMADOL] Allergy Unknown TACHYCARDIA/SOB, Verified 10/09/22 12:34 anaphylaxis meperidine [From Demerol] Allergy Vomiting Verified 10/09/22 12:34 shellfish Allergy Unknown anaphylaxis Uncoded 07/10/22 13:35 Home Medications Medication Instructions Recorded Confirmed Last Taken Type albuterol sulfate 90 mcg/actuation 90 mcg inhalation NEEDED 03/01/20 10/07/22 Unknown History aerosol inhaler fluticasone propionate 115 2 puff inhalation BID 02/11/22 10/07/22 Unknown History mcg-salmeterol 21 mcg/actuation HFA inhaler (Advair HFA) ipratropium 0.5 mg-albuterol 3 mg 3 ml inhalation BID 02/11/22 10/07/22 Unknown History (2.5 mg base)/3 mL nebulization soln fluticasone propionate 50 50 mcg intranasal DAILY 07/25/22 10/07/22 Unknown History mcg/actuation nasal spray,suspension Exam Exam Date and Time: October 08, 2022 1418 Pertinent Lab Results Pertinent Lab Results: Laboratory Tests 10/03/22 10/03/22 15:07 15:07 WBC 3.3 L Hgb 13.1 Hct 39.9 Plt Count 236 Sodium 140 Potassium 3.7 Chloride 107 Carbon Dioxide 27 BUN 7 L Creatinine 0.72 Narrative Narrative: Exercise stress 2020 Protocol: KALE ? Max HR: 155 BPM? 86% of? Pred: 179 BPM Max BP: 120/078 mmHG Max Work Load: 9.0 METS ? Exercise stress test with exercise 7 min 18 sec of Kale protocol, with report ?of 1/10 localized left chest discomfort at rest? which is always there that ?increased to 2/10 during exercise, with mild sob, with isolated PVCs, with ?normotensive response to exercise, with artifact at peak exercise and without ?EKG changes meeting criteria for ischemia at 12 sec of recovery and remainder ?of recovery. While in recovery she developed cough and wheezing which she ?states was her asthma. She used her own proair inhaler with improvement in ?symptom. Her chest discomfort remained at a 2/10 through recovery. Test ?reviewed with Dr Pablo. Assessment and Plan Assessment Anesthesia Assessment: Chart Reviewed Documented by User: Ana Luisa Burciaga MD 10/09/22 13:28 [facility] Past Medical History Medical History Chronic sinusitis Dizziness GERD (gastroesophageal reflux disease) History of ectopic Iron deficiency anemia due to chronic blood loss Left knee pain Mild asthma Tachycardia Family History Family History Father Diabetes Mother Diabetes Maternal Grandmother Hypertension Maternal Grandfather Hypertension Lung cancer Paternal Grandfather Hypertension Paternal Grandmother Hypertension Family history of problems with anesthesia: No Surgical History Surgical History H/O tubal ligation History of History of esophagogastroduodenoscopy (EGD) History of Problems with Anesthesia: No Social History Social History Household Members: Spouse and Children Housing: House Are you a primary patient care secretary to a significant other at home: No Do you presently have visiting nurse or other home services: Yes Alcohol intake: never Patient Tobacco Use Status: Never used Tobacco e-Cigarette/Vaping Use: Never Used Second Hand Smoke Exposure: No Use of substances other than those prescribed or required for medical reasons: No Are you DNR?: No Advance Directives: No Advance Directives Information Provided: Yes service: No Current occupational status: unemployed Current occupation: Right handed Gender identity: Female Cognitive needs: No Hearing needs: No Vision needs: No Meds Allergies Allergy/AdvReac Type Severity Reaction Status Date / Time Beef Containing Products Allergy Intermediate ITCHY Verified 10/09/22 12:34 [BEEF CONTAINING PRODUCTS] lactose Allergy Mild Itching Verified 10/09/22 12:34 tramadol [TRAMADOL] Allergy Unknown TACHYCARDIA/SOB, Verified 10/09/22 12:34 anaphylaxis meperidine [From Demerol] Allergy Vomiting Verified 10/09/22 12:34 shellfish Allergy Unknown anaphylaxis Uncoded 07/10/22 13:35 Home Medications Medication Instructions Recorded Confirmed Last Taken Type albuterol sulfate 90 mcg/actuation 90 mcg inhalation NEEDED 03/01/20 10/07/22 Unknown History aerosol inhaler fluticasone propionate 115 2 puff inhalation BID 02/11/22 10/07/22 Unknown History mcg-salmeterol 21 mcg/actuation HFA inhaler (Advair HFA) ipratropium 0.5 mg-albuterol 3 mg 3 ml inhalation BID 02/11/22 10/07/22 Unknown History (2.5 mg base)/3 mL nebulization soln fluticasone propionate 50 50 mcg intranasal DAILY 07/25/22 10/07/22 Unknown History mcg/actuation nasal spray,suspension Exam Airway Mallampati Class: II TM Dist: >3cm Neck ROM: Full Loose/Missing/Broken Teeth: No Heart: rr Lungs: cta Assessment and Plan Assessment Anesthesia Assessment: Anesthesia Plan Discussed Final Anesthetic Review Family History of Problems with Anesthesia: No History of Problems with Anesthesia: No NPO: Yes ASA Class: II Final Preanesthetic Review: No Changes in Pt Med Stat, Meds/Allgs Chart Reviewed, Consent Obtained/Reviewed and Anes Risks/Benef Reviewed Patient Risk: Low Procedure Risk: Low Anesthetic Plan Anesthetic Plan: MAC:
[2022-10-09 12:34] VITALS: BMI 26.1
[2022-10-09 12:51] VITALS: BP 113/71; PULSE 94; RESP 15; TEMP 36.9; O2SAT 98
[2022-10-09] MEDS: Lactated Ringers 1,000 ML 100 ML IVCONT (13:03)
--- NOTE | 2022-10-09 13:04 | MHC.SHP ---
Pre-Procedural Eval Section A Date of Service: 10/09/22 Section B Chief Complaint: GERD,IBS Relevant Family History (Specify if Yes): No Relevant Social History: None Present Medications: see Short Stay Collaborative assessment Medical History: Significant History (Chronic sinusitis Dizziness GERD (gastroesophageal reflux disease) History of ectopic Iron deficiency anemia due to chronic blood loss Left knee pain Mild asthma Tachycardia) History of Previous Operations: Relevant previous surgery/procedure and date(s) (H/O tubal ligation History of History of esophagogastroduodenoscopy (EGD)) Allergies: Allergies Allergy/AdvReac Type Severity Reaction Status Date / Time Beef Containing Products Allergy Intermediate ITCHY Verified 10/09/22 12:34 [BEEF CONTAINING PRODUCTS] lactose Allergy Mild Itching Verified 10/09/22 12:34 tramadol [TRAMADOL] Allergy Unknown TACHYCARDIA/SOB, Verified 10/09/22 12:34 anaphylaxis meperidine [From Demerol] Allergy Vomiting Verified 10/09/22 12:34 shellfish Allergy Unknown anaphylaxis Uncoded 07/10/22 13:35 Review of Systems Sugical H&P ROS: Negative: Constitution, Cardiovascular, Respiratory, Neurological, Psychiatric, Hem-Onc, Allergic/Immunologic, Gastrointestinal, Genitourinary, Musculoskeletal, Integumentary, Endocrine and Eyes/Ears/Nose/Throat Exam Surgical H&P Exam: Normal: HEENT, Normal: Heart, Normal: Lungs, Normal: Extremities, Normal: Abdomen, Normal: Skin and Normal: Neurological Plan Diagnosis/Plan: Unchanged I have reviewed the history and physical and performed a pertinent physical examination on my patient. No changes have occurred unless specified. Time Spent With Patient Time: Total time managing care of this patient today ____ minutes.
--- NOTE | 2022-10-09 13:44 | W.PM.OPN ---
Operative Note Operative Note Date of Service: 10/09/22 Narrative: Operative Information Procedure Description: EGD, Colonoscopy Indication: GERD, IBS Anesthesia: MAC FLEXIBLE TRANSORAL UPPER GASTROINTESTINAL ENDOSCOPY AND COLONOSCOPY PROCEDURE NOTE UPPER ENDOSCOPY Consent: Indications for the procedure and potential complications of bleeding, perforation, reaction to medications and missed diagnosis were discussed with the patient and informed consent was obtained. Instrument: Olympus GIF H 190 J mid size upper endoscope Monitoring: Vital signs and clinical assessment, continuous EKG monitoring, Pulse oximetry, Carbon Dioxide monitoring and blood pressure monitoring were done throughout the procedure. Procedure: The patient was placed in the left lateral decubitis position and pre-procedure medications were administered and a bite block was placed. The endoscope was inserted into the mouth and advanced under direct vision to the third part of duodenum. A careful inspection was made as the upper endoscope was withdrawn including a retroflexed examination of the proximal stomach; Findings and interventions are described below. Findings: Larynx:normal Esophagus: GE junction at 35 cm, diaphragm hiatus at 35 cm, mild esophagitis, bx taken Stomach: Mild erythema. Biopsies were obtained. Grade 2 flap valve on retroflexed examination of the cardia. Duodenum: Normal bulb and descending duodenum, bx taken Intervention: Biopsies as noted above COLONOSCOPY Instrument: Olympus variable stiffness pediatric scope 190L Colonoscopy Monitoring: Vital signs and clinical assessment, continuous EKG monitoring, Pulse oximetry, Carbon Dioxide monitoring and blood pressure monitoring were done throughout the procedure. Colon withdrawal time was 6 minutes. Procedure: The patient was placed in the left lateral decubitis position and pre-procedure medications were administered. After a digital rectal examination of the ano-rectum, the video colonoscope was inserted into the rectum and advanced through the colon to the cecum/TI. The colonoscope was slowly withdrawn in a retrograde panoramic fashion and the colon mucosa was carefully examined including a retroflexed view of the rectum. Findings and interventions are described below. Procedure Difficulty: easy Findings: Terminal Ileum-normal, bx taken Random colon bx taken Cecum:normal Ascending Colon: normal Transverse Colon -normal Descending Colon:normal Sigmoid Colon: normal Rectum: Retroflexion with small internal hemorrhoids, grade I Anorectum - normal Colon preparation: [place] Bowel Preparation Scale Right colon; 2 Transverse colon: 3 Left colon; 3 (0 = Unprepared colon segment with mucosa not seen due to solid stool that cannot be cleared. 1 = Portion of mucosa of the colon segment seen, but other areas of the colon segment not well seen due to staining, residual stool and/or opaque liquid. 2 = Minor amount of residual staining, small fragments of stool and/or opaque liquid, but mucosa of colon segment seen well. 3 = Entire mucosa of colon segment seen well with no residual staining, small fragments of stool or opaque liquid) Impression and Post Procedure Diagnosis: Endoscopy Findings: gastritis esophagitis Colonoscopy Findings: internal hemorrhoids Plan: Await Pathology results Repeat Colonoscopy in 5 years (FH of CR[facility] per pt but she is not sure of all the details) or earlier if clinically indicated High fiber diet leaflet avoid straining at stool, epsom salts and sitz bath, anusol supps or cream check compliance with PPI Above findings were reviewed with the patient and relevant handouts were provided if indicated.
[2022-10-09 13:45] VITALS: BP 87/48; PULSE 85; RESP 16; TEMP 36.8; O2SAT 99
[2022-10-09 14:00] VITALS: BP 98/57; PULSE 73; RESP 16; O2SAT 99
[2022-10-09 14:15] VITALS: BP 108/71; PULSE 86; RESP 16; TEMP 36.8; O2SAT 99
== END 2022-10-09 15:04 | disposition home or self-care (01) ==
PROVIDERS: PCP Internal Medicine; Visit Provider Internal Medicine Gastroenterology
PROC: (CPT 45380; principal; 2022-10-09 13:30)
DX: K58.9 Irritable bowel syndrome, unspecified (principal); K64.0 First degree hemorrhoids; K21.9 Gastro-esophageal reflux disease without esophagitis; K29.50 Unspecified chronic gastritis without bleeding; K20.80 Other esophagitis without bleeding; K44.9 Diaphragmatic hernia without obstruction or gangrene; D50.0 Iron deficiency anemia secondary to blood loss (chronic); J32.9 Chronic sinusitis, unspecified; J45.909 Unspecified asthma, uncomplicated; R42 Dizziness and giddiness; R00.0 Tachycardia, unspecified; Z79.51 Long term (current) use of inhaled steroids; Z79.899 Other long term (current) drug therapy; Z88.8 Allergy status to other drugs, medicaments and biological substances
CPT/HCPCS: 45380; 43239; 88305; 88342

== ENCOUNTER → 2022-10-10 15:22 | Outpatient (BNVA) | payer OTHER, SELFPAY | PROVIDERS: PCP Internal Medicine; Visit Provider Internal Medicine Pulmonary Disease | DX: J45.30 Mild persistent asthma, uncomplicated (principal); Z91.09 Other allergy status, other than to drugs and biological substances | CPT/HCPCS: 99212 ==

== ENCOUNTER 2022-10-17 14:39 | Outpatient (REF) | payer OTHER, SELFPAY | END 2022-10-17 14:40 | disposition home or self-care (01) | LOC: HO.MDS 14:39 | PROVIDERS: Visit Provider Internal Medicine Pulmonary Disease | DX: J45.50 Severe persistent asthma, uncomplicated (principal) | CPT/HCPCS: 96372; J2357 ==

== ENCOUNTER → 2022-10-23 14:04 | Outpatient (BNVA) | payer OTHER, SELFPAY | PROVIDERS: PCP Internal Medicine; Visit Provider Nurse Practitioner | DX: K21.9 Gastro-esophageal reflux disease without esophagitis (principal); K59.04 Chronic idiopathic constipation; K58.9 Irritable bowel syndrome, unspecified; Z80.0 Family history of malignant neoplasm of digestive organs | CPT/HCPCS: 99212 ==

== ENCOUNTER 2022-11-17 14:09 | Outpatient (REF) | payer OTHER, SELFPAY | END 2022-11-17 14:10 | disposition home or self-care (01) | LOC: HO.MDS 14:09 | PROVIDERS: Visit Provider Internal Medicine Pulmonary Disease | DX: J45.50 Severe persistent asthma, uncomplicated (principal) | CPT/HCPCS: 96372; J2357 ==

== ENCOUNTER 2022-11-25 14:05 | Outpatient (REF) | payer OTHER, SELFPAY ==
--- NOTE | ~2022-11-25 | MM_ITS ---
EXAMINATION: MM SCREENING DIGITAL BREAST TOMOSYNTHESIS, BILATERAL CLINICAL INFORMATION: Screening. Asymptomatic. The lifetime risk of breast cancer based on the Tyrer-Cuzick Model is 12%. COMPARISON: Mammography: 11/06/2020 (baseline). TECHNIQUE: Digital breast tomosynthesis is performed in both the craniocaudal and mediolateral oblique views along with computer-aided detection (CAD). Synthesized 2D images are generated from the tomosynthesis. FINDINGS: There are scattered areas of fibroglandular density (ACR BI-RADS breast composition Category b). There are no significant masses, abnormal calcifications, or other abnormalities. Parenchymal pattern is similar to prior studies. There is no developing density or architectural abnormality. The axilla and skin contours are unremarkable. No significant changes. MM/MM tomosynthesis screening BI IMPRESSION: No mammographic evidence of malignancy. ASSESSMENT: BI-RADS 1: Negative RECOMMENDATION: Routine annual mammography screening. This patient's information was entered into a reminder system with a target due date for their next mammogram.
== END 2022-11-25 14:06 | disposition home or self-care (01) ==
LOC: HO.MAMMO 14:05
PROVIDERS: PCP Internal Medicine; Visit Provider Internal Medicine
DX: Z12.31 Encounter for screening mammogram for malignant neoplasm of breast (principal)
CPT/HCPCS: 77063; 77067

== ENCOUNTER 2022-12-01 14:49 | Outpatient (REF) | payer OTHER, SELFPAY | END 2022-12-01 14:50 | disposition home or self-care (01) | LOC: HO.MDS 14:49 | PROVIDERS: Visit Provider Internal Medicine Pulmonary Disease | DX: J45.50 Severe persistent asthma, uncomplicated (principal) | CPT/HCPCS: 96372; J2357 ==

== ENCOUNTER 2022-12-19 14:41 | Outpatient (REF) | payer OTHER, SELFPAY | END 2022-12-19 14:42 | disposition home or self-care (01) | LOC: HO.MDS 14:41 | PROVIDERS: Visit Provider Internal Medicine Pulmonary Disease | DX: J45.50 Severe persistent asthma, uncomplicated (principal) | CPT/HCPCS: 96372; J2357 ==

== ENCOUNTER 2023-01-02 15:17 | Outpatient (REF) | payer OTHER, SELFPAY | END 2023-01-02 15:18 | disposition home or self-care (01) | LOC: HO.MDS 15:17 | PROVIDERS: Visit Provider Internal Medicine Pulmonary Disease | DX: J45.50 Severe persistent asthma, uncomplicated (principal) | CPT/HCPCS: 96372; J2357 ==

== ENCOUNTER 2023-01-16 14:57 | Outpatient (REF) | payer OTHER, SELFPAY | END 2023-01-16 14:58 | disposition home or self-care (01) | LOC: HO.MDS 14:57 | PROVIDERS: Visit Provider Internal Medicine Pulmonary Disease | DX: J45.50 Severe persistent asthma, uncomplicated (principal) | CPT/HCPCS: 96372; J2357 ==

== ENCOUNTER 2023-01-22 16:45 | Outpatient (AMB) | payer OTHER, SELFPAY ==
[2023-01-22 16:52] VITALS: BP 110/68; BMI 25.3
--- NOTE | 2023-01-22 16:52 | A.OFFPC_ITS ---
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 Accompanied by: Self / Same As Patient Allergies Beef Containing Products [BEEF CONTAINING PRODUCTS] Allergy (Intermediate, Verified 01/22/23 17:01) ITCHY lactose Allergy (Mild, Verified 01/22/23 17:01) Itching tramadol [TRAMADOL] Allergy (Unknown, Verified 01/22/23 17:01) TACHYCARDIA/SOB, anaphylaxis meperidine [From Demerol] Allergy (Verified 01/22/23 17:01) Vomiting shellfish Allergy (Unknown, Uncoded 01/22/23 17:01) anaphylaxis Medication List - Last Reconciled 01/22/23 by Kaylee Acuna MD bisacodyl 10 mg TX DAILY PRN cetirizine 10 mg PO DAILY 90 days cholecalciferol (vitamin D3) 50 mcg PO DAILY 90 days epinephrine 0.3 mg (0.3 mL) IM Q4H PRN fluticasone propion-salmeterol 115-21 mcg/actuation (Advair HFA) 2 puffs inhalation BID fluticasone propionate 50 mcg/actuation 50 mcg intranasal DAILY hydrocortisone 2.5% (Proctosol HC) 1 appl TX BID PRN ipratropium-albuterol 0.5 mg-3 mg(2.5 mg base)/3 mL 3 mL inhalation BID naproxen 500 mg PO BID 90 days omalizumab (Xolair) 300 mg subcut Q2W 28 days polyethylene glycol 3350 (Miralax) 17 grams PO ONCE rabeprazole (AcipHex) 20 mg PO DAILY tranexamic acid (Lysteda) 1,300 mg (2 x 650 mg) PO TID 5 days Ventolin HFA 90 mcg/actuation (albuterol sulfate) 90 mcg inhalation NEEDED 30 days NS Tobacco use date assessed: 06/12/22 Dental Screening Dental Screen Date: 01/22/23 Did you have a dental visit in the last 12 months?: No Did you have a dental problem in the last 6 months where you did not have access to dental care?: No Was dental information given to patient?: Patient has dentist HPI HPI Comments History of Present Illness Details This is a 42-year-old female that comes for physical exam. Last mammogram was October 2022 and was normal. Last Pap smear was 2020. Complains of fatigue and tired and diffuse joint pain. No chest pain or shortness of breath. [facility] Medical History (Updated 01/22/23 @ 17:13 by Kaylee Acuna MD) Chronic sinusitis Dizziness GERD (gastroesophageal reflux disease) History of ectopic Iron deficiency anemia due to chronic blood loss Left knee pain Mild asthma Tachycardia Surgical History H/O tubal ligation History of History of esophagogastroduodenoscopy (EGD) Family History Father Diabetes Mother Diabetes Maternal Grandmother Hypertension Maternal Grandfather Hypertension Lung cancer Paternal Grandfather Hypertension Paternal Grandmother Hypertension Social History Household Members: Spouse and Children Housing: House Are you a primary medication care manager to a significant other at home: No Do you presently have visiting nurse or other home services: Yes Alcohol intake: never Patient Tobacco Use Status: Never used Tobacco e-Cigarette/Vaping Use: Never Used Second Hand Smoke Exposure: No service: No Current occupational status: unemployed Current occupation: Right handed Gender identity: Female Cognitive needs: No Hearing needs: No Vision needs: No Female Reproductive History Menstrual Age of Menarche: 14 Questionnaire Thrive Questionnaire Date Thrive assessed: 06/12/22 LEON-7 AMB Questionnaire LEON-7 Date LEON - 7 assessed: 06/12/22 Source: Developed by Drs. Bib Freitas, Lilian Hernández, Nixon Bertrand and colleagues, with an educational aamir from [employer]. Review of Systems Const All systems reviewed & are unremarkable except as noted in HPI and below Eyes Reports no additional complaints, Denies change in vision and Denies other visual disturbances Card Denies chest pain at rest, Denies chest pain with activity, Denies edema, Denies irregular heart rhythm, Denies claudication, Denies dyspnea, Denies dyspnea on exertion, Denies orthopnea, Denies paroxysmal nocturnal dyspnea and Denies slow heart rate Resp Denies cough, Denies dyspnea and Denies dyspnea on exertion GI Denies abdominal pain, Denies change in bowel habits, Denies excessive flatus, Denies nausea and Denies vomiting Denies urinary incontinence, Denies urinary hesitancy and Denies urinary urgency Musc Denies abnormal gait, Denies atrophy, Denies deformity and Denies limited range of motion Skin/Breast Denies bleeding lesions, Denies changing lesions and Denies rash Neuro Denies abnormal gait and Denies lack of coordination Physical exam (Primary Care) Vital Signs: Last Vital Signs BP 110/68 01/22/23 16:52 BMI result Body Mass Index 25.3 Tobacco/Smoking Status: Tobacco use Status Tobacco use date assessed 06/12/22 01/22/23 16:57 Patient Tobacco Use Status Never used Tobacco 01/22/23 16:57 e-Cigarette/Vaping Use Never Used 01/22/23 16:57 Thrive Assessment: Date of Thrive Assessment Date Thrive assessed 06/12/22 01/22/23 16:57 Const Orientation/consciousness: patient oriented x3 HENME Head: Yes normal to inspection, Yes normocephalic and Yes atraumatic Ears: external ears normal Eyes General: appearance normal, both eyes and all related structures Eyelids: Yes eyelids normal Conjunctivae: conjunctivae normal Neck Neck: Yes normal visual inspection and Yes supple Resp Effort & Inspection: normal respiratory effort Auscultation: clear to auscultation bilaterally Cardio Jugular venous distension: no JVD Rate: regular rate Rhythm: regular rhythm Heart sounds: S1 normal heart sound present and S2 normal heart sound present GI Inspection: Yes normal to inspection Palpation (GI): Soft to palpation and nontender Auscultation: normal bowel sounds Skin General skin exam: no rashes or lesions noted Neuro General: patient oriented x3 and no focal motor deficits Extrem General: Yes full ROM Psych Appearance: grossly normal Assessment and Plan Assessment & Plan (1) Physical exam: Onset Date: ~06/22/21 Comment: 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 Due for eye and dental exam. Last mammo on 10/2020 Declines COVID IZ's; declines flu today Code(s): Z00.00 - Encounter for general adult medical examination without abnormal findings Plan: Repeat in a year Orders: Orders Vitamin B12 and Folate Today E53.8 - Deficiency of other specified B group vitamins Comprehensive [place]. Panel Fast Today Z00.00 - Encounter for general adult medical examination without abnormal findings IRON PROFILE Today D64.9 - Anemia, unspecified Lipid Panel Today E78.5 - Hyperlipidemia, unspecified, Z00.00 - Encounter for general adult medical examination without abnormal findings Vitamin D 25-OH Total Today E55.9 - Vitamin D deficiency, unspecified Complete Blood Count Auto Diff Today D64.9 - Anemia, unspecified XR elbow RT 2V Today M25.521 - Pain in right elbow XR knee RT 1V Today M25.561 - Pain in right knee XR knee LT 2V Today M25.562 - Pain in left knee XR KUB Today M54.9 - Dorsalgia, unspecified XR cervical spine 2V Today M54.2 - Cervicalgia Coding Level of Care Code Est Pt Prev Care 40-64y(46867) Diagnoses Physical exam Z00.00 Time Spent (min) 31
== END 2023-01-22 17:17 | disposition home or self-care (01) ==
PROVIDERS: PCP Internal Medicine; Visit Provider Internal Medicine
DX: Z00.00 Encounter for general adult medical examination without abnormal findings (principal)
CPT/HCPCS: 99396

== ENCOUNTER 2023-01-26 16:01 | Outpatient (REF) | payer OTHER, SELFPAY ==
--- NOTE | ~2023-01-26 | XR_ITS ---
X-RAY BILATERAL KNEES CLINICAL HISTORY: Pain. COMPARISON: Radiograph left knee 06/28/2020. TECHNIQUE: 2 views of the knee were obtained. FINDINGS: No acute fractures or subluxation. Mild joint space narrowing of the medial compartment in both knees. No significant marginal degenerative osteophytes. No osseous erosions. No abnormal soft tissue calcifications. No joint effusion. XR/XR knee LT 2V IMPRESSION: No acute fractures or subluxation. 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
--- NOTE | ~2023-01-26 | XR_ITS ---
X-RAY BILATERAL KNEES CLINICAL HISTORY: Pain. COMPARISON: Radiograph left knee 06/28/2020. TECHNIQUE: 2 views of the knee were obtained. FINDINGS: No acute fractures or subluxation. Mild joint space narrowing of the medial compartment in both knees. No significant marginal degenerative osteophytes. No osseous erosions. No abnormal soft tissue calcifications. No joint effusion. XR/XR knee RT 2V IMPRESSION: No acute fractures or subluxation. 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
--- NOTE | ~2023-01-26 | XR_ITS ---
EXAMINATION: XR CERVICAL SPINE CLINICAL INFORMATION: Cervicalgia. COMPARISON: Radiograph cervical spine 05/26/2017. TECHNIQUE: 3 views of the cervical spine were obtained. FINDINGS: Nonspecific straightening of the cervical lordosis. No evidence of acute compression deformity or traumatic subluxation. Minimal multilevel discogenic degenerative changes. No significant marginal osteophytes. Normal appearance of the posterior elements. No prevertebral soft tissue thickening. Visualized portions of the lung apices are clear. XR/XR cervical spine 2V IMPRESSION: 1. Nonspecific straightening of the cervical lordosis. 2. No acute compression deformity or traumatic subluxation. 3. Mild cervical spondylosis.
--- NOTE | ~2023-01-26 | XR_ITS ---
EXAMINATION: XR ELBOW, RIGHT CLINICAL INFORMATION: Pain. COMPARISON: None available. TECHNIQUE: AP, lateral, and oblique views of the right elbow. FINDINGS: The bones and soft tissues are normal. No fracture or joint effusion. Alignment is anatomic. Joint spaces are maintained. XR/XR elbow RT min 3V IMPRESSION: Normal right elbow.
--- NOTE | ~2023-01-26 | XR_ITS ---
EXAMINATION: XR ABDOMEN KUB CLINICAL INDICATION: Dorsalgia. COMPARISON: CT abdomen/pelvis 01/11/2021. TECHNIQUE: AP view of the abdomen. FINDINGS: Nonobstructive bowel gas pattern. No significant stool burden. No acute osseous findings. Multiple pelvic phleboliths are seen. XR/XR KUB IMPRESSION: 1. Nonobstructive bowel gas pattern. No significant stool burden. 2. No acute osseous findings. In this patient with a history of dorsalgia, further evaluation with dedicated radiographic images of the thoracic and lumbar spine are recommended if clinically deemed appropriate.
[2023-01-26 16:22] LABS: MANUAL DIFF FLAG NO
[2023-01-26 17:45] LABS: Basophils Absolute Auto 0.1 X10*3/uL (0.0-0.2); Basophils Percent Auto 1.7 % (0-2); Eosinophils Absolute Auto 0.2 X10*3/uL (0.0-0.4); Eosinophils Percent Auto 4.6 % (0-4); Hematocrit 39.6 % (37.0-47.0); Hemoglobin 12.6 g/dl (12.0-16.0); Imm Gran Abs Auto 0.01 X10*3/uL (0.00-0.03); Imm Gran Pct Auto 0.2 % (0.0-0.4); Lymphocytes Absolute Auto 1.8 X10*3/uL (1.2-4.9); Lymphocytes Percent Auto 43.8 % (20-40); Mean Corpuscular HGB Conc 31.8 g/dl (31.0-35.0); Mean Corpuscular Volume 97.5 fL (80.0-98.0); Mean Platelet Volume 10.3 fL (9.4-12.3); Monocytes Absolute Auto 0.3 X10*3/uL (0.1-1.2); Monocytes Percent Auto 7.3 % (2-11); Neutrophils Absolute Auto 1.7 x10*3/uL (2.0-8.3); Neutrophils Percent Auto 42.4 % (45-73); Platelet Count 264 X10*3/uL (160-400); Red Blood Count 4.06 X10*6/uL (4.20-5.50); Red Cell Distribution Width 11.5 % (11.0-16.0); White Blood Count 4.1 X10*3/uL (4.8-10.8)
[2023-01-26 18:14] LABS: Alanine Aminotransferase 15 U/L (0-31); Albumin Level 3.9 g/dL (3.5-5.0); Alkaline Phosphatase 55 U/L (39-117); Anion Gap 8 (12-20); Aspartate Amino Transferase 16 U/L (5-31); Bilirubin Total 0.6 mg/dL (0.0-1.0); Blood Urea Nitrogen 7 mg/dL (9-16); Calcium 9.1 mg/dL (8.4-10.2); Carbon Dioxide 29 mmol/L (22-29); Chloride 107 mmol/L (96-108); Cholesterol 198 mg/dL (<200); Estimated Glomerular Filt Rate > 60; Glucose Fasting 79 mg/dL (60-99); HDL Cholesterol 44 mg/dL (>40); Iron 131 mcg/dL (30-160); LDL Cholesterol Calculated 137 mg/dL (<100); Percent Iron Saturation 58 % (15-50); Potassium 4.1 mmol/L (3.3-5.1); Sodium 140 mmol/L (135-145); Total Iron Binding Capacity 227 mcg/dL (228-428); Total Protein 6.7 g/dL (6.5-8.0); Triglycerides 89 mg/dL (<150); Unsaturated Iron Binding 96 ug/dL
[2023-01-26 18:29] LABS: Vitamin D 25-OH Total 26.1 ng/mL (>30)
[2023-01-26 18:42] LABS: Folate 12.6 ng/mL (> or = 4.0); Vitamin B12 401 pg/mL (200-900)
== END 2023-01-26 16:02 | disposition home or self-care (01) ==
LOC: HO.LAB 16:01
PROVIDERS: PCP Internal Medicine; Visit Provider Internal Medicine
DX: M25.562 Pain in left knee (principal); M25.561 Pain in right knee; M25.521 Pain in right elbow; M54.2 Cervicalgia; M54.9 Dorsalgia, unspecified; E78.5 Hyperlipidemia, unspecified; E53.8 Deficiency of other specified B group vitamins; E55.9 Vitamin D deficiency, unspecified; D64.9 Anemia, unspecified
CPT/HCPCS: 36415; 72040; 73080; 73560; 74018; 80053; 80061; 82306; 82607; 82746; 83540; 85025

== ENCOUNTER 2023-01-30 15:12 | Outpatient (REF) | payer OTHER, SELFPAY | END 2023-01-30 15:13 | disposition home or self-care (01) | LOC: HO.MDS 15:12 | PROVIDERS: Visit Provider Internal Medicine Pulmonary Disease | DX: J45.50 Severe persistent asthma, uncomplicated (principal) | CPT/HCPCS: 96372; J2357 ==

== ENCOUNTER 2023-02-13 14:21 | Outpatient (REF) | payer OTHER, SELFPAY | END 2023-02-13 14:22 | disposition home or self-care (01) | LOC: HO.MDS 14:21 | PROVIDERS: Visit Provider Internal Medicine Pulmonary Disease | DX: J45.50 Severe persistent asthma, uncomplicated (principal) | CPT/HCPCS: 96372; J2357 ==

== ENCOUNTER 2023-04-07 15:33 | Outpatient (AMB) | payer OTHER, SELFPAY ==
[2023-04-07 15:38] VITALS: BP 107/57; PULSE 91; O2SAT 99; BMI 25.3
--- NOTE | 2023-04-07 15:38 | A.OFFVIS_ITS ---
Intake Vital Signs 04/07/23 15:38 Height 4 ft 10 in Weight 121 lb 4.068 oz BMI 25.3 BP 107/57 L Blood Pressure Location Lt brachial Position Sitting Pulse 91 Pulse Source Doppler Pulse Oximetry (%) 99 Oxygen Delivery Method Room Air Intake Visit Reasons: Asthma Allergies Beef Containing Products [BEEF CONTAINING PRODUCTS] Allergy (Intermediate, Verified 04/03/23 15:20) ITCHY lactose Allergy (Mild, Verified 04/03/23 15:20) Itching tramadol [TRAMADOL] Allergy (Unknown, Verified 04/03/23 15:20) TACHYCARDIA/SOB, anaphylaxis meperidine [From Demerol] Allergy (Verified 04/03/23 15:20) Vomiting shellfish Allergy (Unknown, Uncoded 04/03/23 15:20) anaphylaxis HPI Asthma HPI Details 43-year-old lady, nonsmoker, followed fo r severe persistent allergic asthma and environmental allergies.? She has been using Xolair previously with excellent control his symptoms, however after the last injection she developed side effects. At this time she would like to try different interleukin pauline. She rarely requires to use her albuterol MDI. She denies any recent exacerbations. [facility] Medical History Chronic sinusitis Dizziness GERD (gastroesophageal reflux disease) History of ectopic Iron deficiency anemia due to chronic blood loss Left knee pain Mild asthma Tachycardia Surgical History H/O tubal ligation History of History of esophagogastroduodenoscopy (EGD) Family History Father Diabetes Mother Diabetes Maternal Grandmother Hypertension Maternal Grandfather Hypertension Lung cancer Paternal Grandfather Hypertension Paternal Grandmother Hypertension Social History Household Members: Spouse and Children Housing: House Are you a primary foster care therapist to a significant other at home: No Do you presently have visiting nurse or other home services: Yes Alcohol intake: never Patient Tobacco Use Status: Never used Tobacco e-Cigarette/Vaping Use: Never Used Second Hand Smoke Exposure: No service: No Current occupational status: unemployed Current occupation: Right handed Gender identity: Female Cognitive needs: No Hearing needs: No Vision needs: No Female Reproductive History Menstrual Age of Menarche: 14 Review of Systems Const Denies daytime sleepiness, Denies excessive sweating, Denies fatigue, Denies fever(s), Denies lethargy, Denies malaise, Denies night sweats, Denies snoring and Denies weight loss Eyes Denies blurry vision and Denies itchy eyes ENT Denies nasal congestion, Denies post nasal drip, Denies sinus pain, Denies sinus pressure and Denies other ( Thrush) Card Denies chest pain, Denies pedal edema, Denies dyspnea, Denies orthopnea and Denies paroxysmal nocturnal dyspnea Resp Denies cough, Denies hemoptysis, Denies excessive phlegm production, Denies dyspnea, Denies snoring and Denies wheezing GI Denies abdominal pain and Denies heartburn Musc Denies myalgias, Denies arthralgias and Denies joint swelling Skin/Breast Denies rash Neuro Denies memory loss and Denies seizure-like activity Psych Denies abnormal sleep pattern, Denies anxiety and Denies memory loss Endo Denies excessive sweating, Denies fatigue and Denies heat intolerance Roney/Lymph Denies easy bruising Aller/Immun Denies itchy eyes, Denies seasonal rhinorrhea and Denies wheezing Physical Exam Vital Signs: Last Vital Signs Pulse 91 04/07/23 15:38 BP 107/57 L 04/07/23 15:38 Pulse Ox 99 04/07/23 15:38 Oxygen Delivery Method Room Air 04/07/23 15:38 BMI result Body Mass Index 25.3 Const General: no acute distress and alert Nutritional Appearance: not obese Orientation/consciousness: Other orientation findings ( oriented) HEENT Head: Yes atraumatic Eyes General: appearance normal, both eyes and all related structures Sclerae: sclerae normal EOM: EOMs intact bilaterally Neck Neck: Yes supple Lymphatic: no lymphadenopathy noted Resp Effort & Inspection: normal respiratory effort and no use of accessory muscles Auscultation: clear to auscultation bilaterally Cardio Rate: regular rate Rhythm: regular rhythm Heart sounds: no gallops, no murmurs and no rubs Skin General skin exam: other ( warm) Extrem General: No clubbing, No cyanosis and No edema Assessment & Plan Assessment & Plan (1) Asthma: Code(s): J45.909 - Unspecified asthma, uncomplicated Qualifiers: Asthma severity: mild Asthma persistence: persistent Asthma complication type: uncomplicated Qualified Code(s): J45.30 - Mild persistent asthma, uncomplicated Plan: Previously excellent control on Xolair, Advair, and albuterol MDI. Now developing side effects from Xolair. Will switch to Nucala. (2) Environmental allergies: Code(s): Z91.09 - Other allergy status, other than to drugs and biological substances Plan: Previously well controlled on Xolair, now with side effects. Will switch to Nucala. Coding Level of Care Code Est Pt Level 4 (13227) Diagnoses Mild persistent asthma without complication J45.30 Asthma severity: mild Asthma persistence: persistent Asthma complication type: uncomplicated Environmental allergies Z91.09
== END 2023-04-07 15:54 | disposition home or self-care (01) ==
PROVIDERS: PCP Internal Medicine; Visit Provider Internal Medicine Pulmonary Disease
DX: J45.30 Mild persistent asthma, uncomplicated (principal); Z91.09 Other allergy status, other than to drugs and biological substances
CPT/HCPCS: 99214

== ENCOUNTER → 2023-04-07 15:33 | Outpatient (BNVA) | payer OTHER, SELFPAY | PROVIDERS: PCP Internal Medicine; Visit Provider Internal Medicine Pulmonary Disease | DX: J45.30 Mild persistent asthma, uncomplicated (principal); Z91.09 Other allergy status, other than to drugs and biological substances | CPT/HCPCS: 99212 ==

== ENCOUNTER 2023-04-15 14:34 | Outpatient (REF) | payer OTHER, SELFPAY ==
[2023-04-16 02:54] LABS: CT PCR NOT DETECTED (Not Detect.); NG PCR NOT DETECTED (Not Detect.)
[2023-04-16 10:22] LABS: BV Int Neg Control Negative (Negative); BV Int Pos Control Positive (Positive)
== END 2023-04-15 14:35 | disposition home or self-care (01) ==
LOC: HO.LNP 14:34
PROVIDERS: PCP Internal Medicine; Visit Provider Advanced Practice Midwife
DX: Z01.419 Encounter for gynecological examination (general) (routine) without abnormal findings (principal); N89.8 Other specified noninflammatory disorders of vagina; R10.2 Pelvic and perineal pain; D50.0 Iron deficiency anemia secondary to blood loss (chronic); N92.0 Excessive and frequent menstruation with regular cycle; Z79.899 Other long term (current) drug therapy
CPT/HCPCS: 0353U; 87480; 87510; 87660

== ENCOUNTER 2023-04-15 14:34 | Outpatient (AMB) | payer OTHER, SELFPAY ==
--- NOTE | 2023-04-15 14:35 | MHC.OFFVIS ---
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 pain after intercourse Quality Assurance Test Program Manager Required: Yes Quality Assurance Test Program Manager Language: Azeri Information Interpreted: non-clinical & clinical Paint Mixer Hand: Paint Mixer Hand Present (Aidyn) Allergies Beef Containing Products [BEEF CONTAINING PRODUCTS] Allergy (Intermediate, Verified 04/15/23 14:45) ITCHY lactose Allergy (Mild, Verified 04/15/23 14:45) Itching tramadol [TRAMADOL] Allergy (Unknown, Verified 04/15/23 14:45) TACHYCARDIA/SOB, anaphylaxis meperidine [From Demerol] Allergy (Verified 04/15/23 14:45) Vomiting shellfish Allergy (Unknown, Uncoded 04/15/23 14:45) anaphylaxis Medication List - Last Reconciled 04/15/23 by Lesley Roldan CNM bisacodyl 10 mg MI DAILY PRN cetirizine 10 mg PO DAILY 90 days cholecalciferol (vitamin D3) 50 mcg PO DAILY 90 days epinephrine 0.3 mg (0.3 mL) IM Q4H PRN fluticasone propion-salmeterol 115-21 mcg/actuation (Advair HFA) 2 puffs inhalation BID fluticasone propionate 50 mcg/actuation 50 mcg intranasal DAILY hydrocortisone 2.5% (Proctosol HC) 1 appl MI BID PRN ipratropium-albuterol 0.5 mg-3 mg(2.5 mg base)/3 mL 3 mL inhalation BID mepolizumab (Nucala) 100 mg subcut Q4W 28 days naproxen 500 mg PO BID 90 days polyethylene glycol 3350 (Miralax) 17 grams PO ONCE rabeprazole (AcipHex) 20 mg PO DAILY tranexamic acid (Lysteda) 1,300 mg (2 x 650 mg) PO TID 5 days Ventolin HFA 90 mcg/actuation (albuterol sulfate) 90 mcg inhalation NEEDED 30 days NS Is last menstrual period known: Yes Last menstrual period: 03/27/23 Post menopausal: No Patient : No 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 She was offered Mirena and Lysteda and after full explanation she declined the Mirena and she did not roller picker the Lysteda. She does her own research and does not take most medications that are prescribed for her she prefers to only take things and a limited basis if she needs them and try to eat more natural she drinks plantain Tea if she has any abnormal discharge or congestion. She does complain of some pelvic pain and does notice that it is the 2nd week after her Goes away, but she is used to it. She said the Tea helps with that to [facility] Medical History Chronic sinusitis Dizziness GERD (gastroesophageal reflux disease) History of ectopic Iron deficiency anemia due to chronic blood loss Left knee pain Mild asthma Tachycardia Surgical History H/O tubal ligation History of History of esophagogastroduodenoscopy (EGD) Family History Father Diabetes Mother Diabetes Maternal Grandmother Hypertension Maternal Grandfather Hypertension Lung cancer Paternal Grandfather Hypertension Paternal Grandmother Hypertension Social History Household Members: Spouse and Children Housing: House Are you a primary medical care evaluation specialist to a significant other at home: No Do you presently have visiting nurse or other home services: Yes Alcohol intake: never Patient Tobacco Use Status: Never used Tobacco e-Cigarette/Vaping Use: Never Used Second Hand Smoke Exposure: No service: No Current occupational status: unemployed Current occupation: Right handed Gender identity: Female Cognitive needs: No Hearing needs: No Vision needs: No Female Reproductive History Menstrual Age of Menarche: 14 Duration of menses: 6-7 days Date of last menstrual period: 03/27/23 control method: other (tubal ligation) Total pregnancies: 3 Full term: 2 Number of Living Children: 2 Ectopics: 1 Date of last pap smear: 06/20/20 (negative) History of abnormal pap smear: No Date of Mammogram: 11/25/22 Physical Exam Vital Signs: Last Vital Signs BP 90/64 11/15/23 14:36 BMI result Body Mass Index 24.9 Const General: healthy appearing, comfortable, no acute distress, well developed and alert Nutritional Appearance: average body habitus Orientation/consciousness: patient oriented x3 Limitations: no limitations HEENT Head: Yes normocephalic Neck Neck: Yes normal visual inspection Chest Chest palpation & inspection: normal inspection of the chest Breast/axilla inspection: normal inspection of the breasts and normal inspection of the axillae Breast/axilla palpation: normal palpation of the breasts and normal palpation of the axillae Resp Effort & Inspection: normal respiratory effort GI Inspection: Yes normal to inspection, No Abdominal wall edema and No distended Palpation (GI): Soft to palpation and nontender Other: Scar tissue from her previous C-sections and tubal ligations. External exam within normal limits vagina pink and moist cervix multiparous small pink mobile nontender uterus is small nontender anteverted adnexa nontender not enlarged good tone with Kegel. General: Yes bladder normal to palpation External Female Exam: normal external appearance and normal appearance of the urethra Speculum Exam - Vagina: normal appearance of the vagina, normal palpation and normal vaginal discharge Speculum Exam - Cervix: normal appearance of the cervix, normal palpation and nontender Bimanual exam- vagina & uterus: normal bimanual exam, normal palpation, uterine size normal, bladder normal to palpation, consistency normal, normal palpation, uterine mobility normal, uterine shape normal, No Cervical tenderness present, non-tender and no cervical motion tenderness Bimanual Exam- Adnexa, other: normal adnexae, no masses, normal and No adnexal tenderness Neuro General: patient oriented x3 Results Reviewed Results Reviewed: Name: Mohini Gordon Age/Sex: 43/[facility] 1980 [id number]#: [id number] Attend Dr: Lidia Colón MD Re04/03/23 Status: REG RCR Location: HO.ONC Disch: SPEC : [id number] ALVINO: 04/03/23 STATUS: COMP REQ : [id number] RECD: 04/03/[address]: Lidia Colón MD COMP: 04/03/23 ENTERED: 04/03/[address] [facility] [address]: Kaylee Lieberman MD ORDERED: CBC Auto Diff Test Result Flag Reference Site WBC 3.1 L 4.8-10.8 X10*3/uL RBC 3.89 L 4.20-5.50 X10*6/uL HGB 12.4 12.0-16.0 g/dl HCT 37.9 37.0-47.0 % MCV 97.4 80.0-98.0 fL MCH 31.9 27.0-33.0 pg MCHC 32.7 31.0-35.0 g/dl RDW 11.2 11.0-16.0 % PLT 259 160-400 X10*3/uL MPV 9.6 9.4-12.3 fL Neut Pct Auto 38.5 L 45-73 % ImGran Pct Auto 0.0 0.0-0.4 % Lymp Pct Auto 46.8 H 20-40 % [place] Pct Auto 8.0 2-11 % Eos Pct Auto 5.1 H 0-4 % Baso Pct Auto 1.6 0-2 % NRBC Pct Auto 0.0 0.0-0.2 /100WBC ANC Neut Abs # 1.2 L 2.0-8.3 x10*3/uL ImGran Abs Auto 0.00 0.00-0.03 X10*3/uL Lymph Abs Auto 1.5 1.2-4.9 X10*3/uL [place] Abs Auto 0.3 0.1-1.2 X10*3/uL Eos Abs Auto 0.2 0.0-0.4 X10*3/uL Baso Abs Auto 0.1 0.0-0.2 X10*3/uL NRBC Abs Auto 0.000 0.0-0.012 X10*3/uL [facility] [place] [id number] Report Signed Patient: Mohini Gordon DMR#: [id number]: 1980Acct:[id number]/Sex: 41 / FADM Date: 07/25/21Loc: USAttending Dr: Martin Hong MD Ordering Physician: Martin Hong MD Date of Service: 07/25/21 Procedure(s): US pelvic and transvaginal Accession Number(s): [id number] cc: Martin Hong MD~ EXAMINATION: US PELVIS CLINICAL INFORMATION: Abnormal uterine and vaginal bleeding COMPARISON: Previous pelvic ultrasound June [address] of the abdomen and pelvis December 2012 TECHNIQUE: Ultrasound of the pelvis is performed using both transabdominal and transvaginal transducers along with Doppler. Transvaginal imaging is performed due to inadequate visualization transabdominally. FINDINGS: The uterus is anteverted and measures 8 x 4.3 x 5.5 cm in dimension. No focal uterine lesion is seen. Endometrial thickness is normal measuring 0.5 cm. There is a small amount of fluid in the endometrial cavity. There are small nabothian cysts in the cervix. The right ovary measures 2 2.7 x 2.2 x 2.3 cm. There are 2 small echogenic areas in the right ovary. This is similar to June 2020 exam. No corresponding abnormality is seen on CT scan. The left ovary is normal-appearing and measures 2.4 x 1.5 x 2.2 cm. There is no fluid in the pelvis. US/US pelvic and transvaginal IMPRESSION: Normal thickness endometrium. Dictated By:Dora Guzman MDSigned By:<Electronically signed by Dora Guzman MD in OV>07/26/21 1512 DD/ 1604TD/TT: Name: Mohini Gordon Age/Sex: 41/F Attending: Martin Hong MD : 1980 Submitted by: Martin Hong MD Copies to: Kaylee Lieberman MD MR #: [id number] Status: DEP REF Collected: 08/06/21 Location: .LAB Received: 08/07/21 Diagnosis Endometrium, biopsy: Early secretory endometrium; no atypia or hyperplasia identified. Clinical History AUB Microscopic Description Microscopic sections reviewed. Material Received EMB Gross Description Received in formalin labeled EMB is a 1.2 x 1.0 x 0.4 cm. aggregate of multiple soft, tipton-brown, irregular tissue fragments with scant mucus and blood. The specimen is submitted in toto in a single cassette labeled A. CEDS Copies To Kaylee Lieberman MD [address] [place] [address] Dr[address] [place] [address] Martin Hong MD [address] [place] [address] [address] [place] [address] NOTE: Some or all of the immunohistochemical tests reported herein may have been developed and their performance characteristics determined by [facility]. They have not been cleared or approved by the U.S. Food and Drug Administration (FDA). However, the FDA has determined that such clearance or approval is not necessary. This laboratory is certified under the Clinical Laboratory Improvement Amendments of 1988 (CLIA) as qualified to perform high complexity clinical laboratory testing. Electronically Signed By: Wes Alberts MD 08/08/21 3453 Patient: Mohini Gordon Age/Sex: 41/F MR#: [id number] Page 1 of 1 Assessment & Plan Assessment & Plan (1) Well woman exam with routine gynecological exam: Code(s): Z01.419 - Encounter for gynecological examination (general) (routine) without abnormal findings (2) Pelvic pain: Code(s): R10.2 - Pelvic and perineal pain (3) Cervical cancer screening: Comment: Pap negative- Code(s): Z12.4 - Encounter for screening for malignant neoplasm of cervix (4) Iron deficiency anemia due to chronic blood loss: Comment: 12.4/37.9 H&H at last CBC April 2023 Code(s): D50.0 - Iron deficiency anemia secondary to blood loss (chronic) (5) Menorrhagia: Comment: She decided against told the recommended treatments... Code(s): N92.0 - Excessive and frequent menstruation with regular cycle Plan Patient describes careful self-care and tries to avoid most of the medications that she has been prescribed if she has an issue with vaginal discharge or congestion she drinks plantain Tea that she brews. She did not want the Mirena and she chose not to get the Lysteda that was offered at the last visit as well all of her evaluations for endometrial lining were within normal limits her last Pap smears in 2020 and it was negative and normal so Pap smear was deferred this year she did except testing for STIs but her discharge was completely within normal limits. She is up-to-date on her mammograms she can not eat meat but she does get her protein met through eggs and lactose-free dairy products and she eats lots of vegetables. And potatoes. Her most recent CBC was within normal limits despite having heavy periods with some clots she says the pain that she has she has always had though there was no pain elicited on the exam whatsoever, she had good tone with her Kegel. Orders: Orders CT NG by PCR Today N89.8 - Other specified noninflammatory disorders of vagina Bacterial Vaginosis Panel Today N89.8 - Other specified noninflammatory disorders of vagina Coding Level of Care Code Est Pt Prev Care 40-64y(19042) Diagnoses Well woman exam with routine gynecological exam Z01.419 Pelvic pain R10.2 Cervical cancer screening Z12.4 Iron deficiency anemia due to chronic blood loss D50.0 Menorrhagia N92.0
[2023-04-15 14:36] VITALS: BP 90/64; BMI 24.9
== END 2023-04-15 15:34 | disposition home or self-care (01) ==
LOC: HO.HWS 14:34
PROVIDERS: PCP Internal Medicine; Visit Provider Advanced Practice Midwife
DX: Z01.419 Encounter for gynecological examination (general) (routine) without abnormal findings (principal); R10.2 Pelvic and perineal pain; Z12.4 Encounter for screening for malignant neoplasm of cervix; D50.0 Iron deficiency anemia secondary to blood loss (chronic); N92.0 Excessive and frequent menstruation with regular cycle
CPT/HCPCS: 99396

== ENCOUNTER 2023-05-12 15:53 | Outpatient (REF) | payer OTHER, SELFPAY | END 2023-05-12 15:54 | disposition home or self-care (01) | LOC: HO.MDS 15:53 | PROVIDERS: PCP Internal Medicine; Visit Provider Internal Medicine Pulmonary Disease | DX: J45.50 Severe persistent asthma, uncomplicated (principal) | CPT/HCPCS: 96372 ==

== ENCOUNTER 2023-06-14 16:03 | Emergency (ER) | payer OTHER, SELFPAY ==
--- NOTE | ~2023-06-14 | XR_ITS ---
EXAMINATION: XR CHEST CLINICAL INFORMATION: Shortness of breath cough COMPARISON: Chest radiograph from 09/18/2021 TECHNIQUE: 2 views of the chest were obtained. FINDINGS: No focal consolidation. No pneumothorax. Trachea is midline. Cardiomediastinal silhouette is not enlarged. Osseous structures are intact. Soft tissues are unremarkable. XR/XR chest 2V IMPRESSION: No acute cardiopulmonary process.
--- NOTE | 2023-06-14 17:16 | ED_ITS ---
HPI - General Adult General Chief complaint: Upper Respiratory Symptoms Stated complaint: Asthma Time Seen by Provider: 06/14/23 19:10 Source: patient and RN notes reviewed Mode of arrival: ambulatory Limitations: no limitations History of Present Illness HPI narrative: This is a 43-year-old female, with a history of asthma, presenting to the emergency department complaints of cough, shortness of breath and chest pain x4 days. Reports chest pain occurs with cough. Chest pain is nonradiating and feels tight , improves with albuterol. Reports some nasal congestion. No fevers, chills, shortness of breath, nausea, vomiting, or diarrhea. No sick contacts. No other complaints or concerns at this time. MD complaint: Dry cough, SOB, CP Onset (ago): day(s) Radiation: non-radiation Severity: mild Pain Consistency: intermittent Relieving factors: none Exacerbating factors: none Associated symptoms: cough Treatments prior to arrival: none Related Data Home Medications Medication Instructions Recorded Confirmed fluticasone propionate 115 2 puff inhalation BID 02/11/22 04/15/23 mcg-salmeterol 21 mcg/actuation HFA inhaler (Advair HFA) ipratropium 0.5 mg-albuterol 3 mg 3 ml inhalation BID 02/11/22 04/15/23 (2.5 mg base)/3 mL nebulization soln fluticasone propionate 50 50 mcg intranasal DAILY 07/25/22 04/15/23 mcg/actuation nasal spray,suspension Previous Rx's Medication Instructions Recorded naproxen 500 mg tablet 500 mg PO BID 90 days #180 tabs 11/12/21 hydrocortisone 2.5 % topical cream 1 appl IN BID PRN hemorrhoids #30 02/11/22 with perineal applicator grams (Proctosol HC) cetirizine 10 mg tablet 10 mg PO DAILY 90 days #90 tabs 03/17/22 tranexamic acid 650 mg tablet 1,300 mg (2 x 650 mg) PO TID 5 06/18/22 (Lysteda) days #30 tabs cholecalciferol (vitamin D3) 50 50 mcg PO DAILY 90 days #90 caps 06/20/22 mcg (2,000 unit) capsule epinephrine 0.3 mg/0.3 mL 0.3 mg (0.3 mL) IM Q4H PRN 08/21/22 injection, auto-injector anaphylaxis #2 ea polyethylene glycol 3350 17 17 g PO ONCE #238 grams 10/06/22 gram/dose oral powder (Miralax) Ventolin HFA 90 mcg/actuation 90 mcg inhalation NEEDED 30 10/13/22 aerosol inhaler (albuterol sulfate) days #18 grams rabeprazole 20 mg tablet,delayed 20 mg PO DAILY #30 tabs 10/23/22 release (AcipHex) bisacodyl 10 mg rectal suppository 10 mg IN DAILY PRN constipation 11/07/22 #50 ea mepolizumab 100 mg/mL subcutaneous 100 mg subcut Q4W 28 days #1 mL 04/14/23 syringe (Nucala) metronidazole 500 mg tablet 500 mg PO BID 7 days #14 tabs 04/16/23 miconazole nitrate 2 % vaginal 1 appful vaginal BEDTIME 7 days 04/21/23 cream (Monistat 7) #45 grams acetaminophen 500 mg tablet 500 mg PO Q6H PRN pain or fever 06/14/23 (Tylenol Extra Strength) #30 tabs ibuprofen 600 mg tablet 600 mg PO Q6H PRN pain or fever 06/14/23 #30 tabs prednisone 20 mg tablet 20 mg PO DAILY 5 days #5 tabs 06/14/23 Allergies Allergy/AdvReac Type Severity Reaction Status Date / Time Beef Containing Products Allergy Intermediate ITCHY Verified 06/14/23 17:18 [BEEF CONTAINING PRODUCTS] lactose Allergy Mild Itching Verified 06/14/23 17:18 tramadol [TRAMADOL] Allergy Unknown TACHYCARDIA/SOB, Verified 06/14/23 17:18 anaphylaxis meperidine [From Demerol] Allergy Vomiting Verified 06/14/23 17:18 metronidazole AdvReac Intermediate stomach Verified 06/14/23 17:18 pain, shellfish Allergy Unknown anaphylaxis Uncoded 06/14/23 17:18 Review of Systems 2 Review of Systems: Yes all other systems are reviewed and are negative Constitutional: Constitutional: Reports as per [facility] Past Medical History Onset Date is defined in the Problem List Problems that require an onset date and time if occurred within 24 hrs of arrival to the ED Aortic Dissection and Rupture; Neurologic impairment; Cardiopulmonary Arrest; Endotracheal Intubation; Insertion or Replacement of Mechanical Circulatory Assist Device Medical History Dizziness Chronic sinusitis Iron deficiency anemia due to chronic blood loss Tachycardia GERD (gastroesophageal reflux disease) Left knee pain Mild asthma History of ectopic Surgical History History of esophagogastroduodenoscopy (EGD) H/O tubal ligation History of Family History Family History Father Diabetes Mother Diabetes Maternal Grandmother Hypertension Maternal Grandfather Hypertension Lung cancer Paternal Grandfather Hypertension Paternal Grandmother Hypertension Social History Social History Household Members: Spouse and Children Housing: House Are you a primary manager career to a significant other at home: No Do you presently have visiting nurse or other home services: Yes Alcohol intake: never Patient Tobacco Use Status: Never used Tobacco e-Cigarette/Vaping Use: Never Used Second Hand Smoke Exposure: No Advance Directives: No Advance Directives Information Provided: No service: No Current occupational status: unemployed Current occupation: Right handed Gender identity: Female Cognitive needs: No Hearing needs: No Vision needs: No Physical Exam ED Vital Signs: Vital Signs - 24 hr 06/14/23 17:18 Temperature 98.9 F Pulse Rate 89 Respiratory Rate 20 Blood Pressure 148/79 H Pulse Oximetry 99 Oxygen Delivery Method Room Air BMI result Body Mass Index 24.7 Const General: cooperative, comfortable and no acute distress Orientation/consciousness: patient oriented x3 Limitations: no limitations HENMT Head: Yes normal to inspection, Yes normocephalic and Yes atraumatic Ears: hearing grossly normal bilaterally and TM's normal bilaterally General nose exam: Normal external nose present Face and sinus: Yes normal facial exam and Yes sinuses nontender Mouth: Normal oral and palatal mucosa present, oropharynx normal and moist mucous membranes Throat: Yes posterior oropharynx normal, Yes tonsils normal and Yes uvula midline Eyes General: appearance normal, both eyes and all related structures Eyelids: Yes eyelids normal Conjunctivae: conjunctivae normal Sclerae: sclerae normal Pupils: Equal, round and reactive pupils present EOM: EOMs intact bilaterally Neck Neck: Yes normal visual inspection, Yes full ROM and Yes no lymphadenopathy Lymphatic: no lymphadenopathy noted Chest Other: Mild TTP to anterior chest wall. Chest palpation & inspection: normal inspection of the chest Resp Effort & Inspection: normal respiratory effort and able to speak in complete sentences Auscultation: clear to auscultation bilaterally, no crackles, no rales, no rhonchi and no wheezes Cardio Rate: regular rate Rhythm: regular rhythm Heart sounds: S1 normal heart sound present and S2 normal heart sound present GI Inspection: Yes normal to inspection Skin General skin exam: no rashes or lesions noted Trauma: no lacerations or abrasions Wounds: no wounds Neuro General: patient oriented x3 and moves all extremities Cranial nerves: Yes Equal, round and reactive pupils present Extrem General: Yes normal to inspection Right upper extremity: normal to inspection Left upper extremity: normal to inspection Right lower extremity: normal to inspection Left lower extremity: normal to inspection Course Course Course Narrative: This is an RME: Additional HPI, ROS, PE not included below will be deferred to primary provider. This is a 43-year-old female, with a history of GERD, and asthma, presenting to the emergency department complaints of nasal congestion, sore throat, shortness of breath, and productive cough x4 days. Symptoms worsened yesterday and today. No fevers or chills. No chest pain at rest. Lungs clear to auscultation bilaterally Plan: Viral swabs, chest x-ray Reevaluation(s) Reevaluation #1: first troponin negative, symptoms ongoing for several days. no indication for repeat, No leukocytosis, pt with leukopenia (around her baseline), chemistry WNL. EKG NSR. Sxs consistent with covid. Given return precautions. Pt understands and agrees with plan. Stable for D/C. Medical Decision Making Medical Decision Making [facility] Narrative: 43 y/o F presenting to the ER with complaints of shortness of breath, cough, aand chest pain. Pt tested +COVID, which is consistent with her symptoms. This patient presents with acute cough, most consistent with COVID Differential diagnosis include acute bacterial pneumonia, influenza, asthma. Presentation not consistent with chronic causes of cough (including GERD, asthma, postnasal discharge, medication side effect) This patient presents with chest pain, with symptoms suggestive of noncardiac chest pain. History without high risk features (e.g., not substernal, no exertional component, not relieved with rest) Minimal CAD risk factors (including age). Exam without evidence of volume overload. EKG without signs of active ischemia. HEART score:0. VSS. Lungs CTA. Plan: Labs, EKG, CXR, viral swabs Differential Diagnosis Differential Diagnoses: The differential diagnosis associated with the presentation includes see above Lab Data MDM Lab Attestation statement: I reviewed the patient's lab results. see course 06/14/23 19:54 06/14/23 19:54 Labs: Lab Results 06/14/23 06/14/23 Range/Units 17:38 19:54 WBC 4.0 L (4.8-10.8) X10*3/uL RBC 4.03 L (4.20-5.50) X10*6/uL Hgb 12.8 (12.0-16.0) g/dl Hct 38.8 (37.0-47.0) % MCV 96.3 (80.0-98.0) fL MCH 31.8 (27.0-33.0) pg MCHC 33.0 (31.0-35.0) g/dl RDW 12.0 (11.0-16.0) % Plt Count 263 (160-400) X10*3/uL MPV 9.7 (9.4-12.3) fL Immature Gran % (Auto) 0.3 (0.0-0.4) % Neut % (Auto) 45.9 (45-73) % Lymph % (Auto) 41.4 H (20-40) % [place] % (Auto) 10.8 (2-11) % Eos % (Auto) 0.8 (0-4) % Baso % (Auto) 0.8 (0-2) % Lymph # (Auto) 1.7 (1.2-4.9) X10*3/uL [place] # (Auto) 0.4 (0.1-1.2) X10*3/uL Eos # (Auto) 0.0 (0.0-0.4) X10*3/uL Baso # (Auto) 0.0 (0.0-0.2) X10*3/uL Abs Immat Gran (auto) 0.01 (0.00-0.03) X10*3/uL Absolute Neuts (auto) 1.8 L (2.0-8.3) x10*3/uL Absolute Nucleated RBC 0.000 (0.0-0.012) X10*3/uL Nucleated RBC % (auto) 0.0 (0.0-0.2) /100WBC Sodium 140 (135-145) mmol/L Potassium 4.4 (3.3-5.1) mmol/L Chloride 105 (96-108) mmol/L Carbon Dioxide 28 (22-29) mmol/L Anion Gap 11 L (12-20) BUN 10 (9-16) mg/dL Creatinine 0.70 (0.5-1.4) mg/dL Estim Creat Clear Calc 71.7 Estimated GFR > 60 Random Glucose 93 (60-115) mg/dL Calcium 9.4 (8.4-10.2) mg/dL Magnesium 2.2 (1.6-2.6) mg/dL Total Bilirubin 0.3 (0.0-1.0) mg/dL AST 22 (5-31) U/L ALT 27 (0-31) U/L Alkaline Phosphatase 65 (39-117) U/L Troponin I High Sens < 2.7 (<3.5-17.0) ng/L Total Protein 7.8 (6.5-8.0) g/dL Albumin 4.3 (3.5-5.0) g/dL Lipase 31 (8-78) U/L COVID-19 (MARGARITO) Positive A (Negative) COVID-19 Clin Com See Note Influenza Type A (ELLEN) Negative (Negative) Influenza Type B (ELLEN) Negative (Negative) Influenza A & B Note See Note Independent Interpretation I performed an independent interpretation of an: EKG Interpretation: NSR with a ventricular rate of 66bpm. IN 162, QTC 383, no st elevation or depression. Radiology Impression Discussion of test interpretation with radiology: I have reviewed the radiologist's reading. Radiologist Impression: EXAMINATION: XR CHEST CLINICAL INFORMATION: Shortness of breath cough COMPARISON: Chest radiograph from 09/18/2021 TECHNIQUE: 2 views of the chest were obtained. FINDINGS: No focal consolidation. No pneumothorax. Trachea is midline. Cardiomediastinal silhouette is not enlarged. Osseous structures are intact. Soft tissues are unremarkable. XR/XR chest 2V IMPRESSION: No acute cardiopulmonary process. Dictated By: Fadl,Samer MD Scores Heart Score History: -0- slightly suspicious ECG: -0- normal Age: -0- < or = 45 Risk factory: -0- no risk factors known Troponin: -0- < or = normal limit Score: 0 Risk: 1.7% Discharge Plan Discharge Clinical Impression: COVID-19 Patient Disposition: Home, Self-Care Instructions: COVID-19 (Coronavirus Disease 2019) (ED) Additional Instructions: [place] radiograf?a de t?rax fue normal. [place] electrocardiograma fue normal. Tomas positivo por COVID hoy, tenga en cuenta la siguiente informaci?n. Puede buscar el sitio web de los [facility] para obtener m?s informaci?n COVID-19 significa enfermedad del coronavirus 2018 . Es causada por un virus llamado SARS-CoV-2. El virus apareci? por primera vez a finales de 2019 y r?pidamente se extendi? por todo el adali. Muchas personas s?lo tienen s?ntomas leves de resfriado. Algunas personas tienen problemas digestivos, yahir n?useas o diarrea. Tambi?n taylor habido algunos informes de erupciones u otros s?ntomas cut?neos. Para la mayor?a de las personas, los s?ntomas mejoran en unos pocos d?as o semanas. Algunas personas con COVID-19 contin?an teniendo algunos s?ntomas al semanas o meses. Sangita muchos l?quidos y descanse mucho. [place] Tylenol y Motrin seg?n sea necesario para los s?ntomas. Si se presenta alg?n s?ntoma nuevo o que empeora, incluidos, entre otros, dolor en el pecho o dificultad para respirar, regrese para jayesh nueva evaluaci?n. ?Qu? dontrell hacer si tengo s?ntomas o tengo un resultado positivo? Si tiene fiebre, tos, s?ntomas de resfriado u otros s?ntomas de COVID-19, h?gase la prueba. Puede utilizar el diagrama de flujo para determinar cu?ndo realizar la prueba y qu? hacer en funci?n de los resultados. Si el resultado es positivo: ? Aislarse al al menos 5 d?as, incluso si se siente eldon. El autoaislamiento significa mantenerse alejado de otras personas, incluso de las personas con las que vive. Los 5 d?as deben comenzar el d?a despu?s de que haya notado los s?ntomas por primera vez o haya obtenido un resultado positivo en la prueba. Si tiene un sistema inmunol?gico d?soraya o si todav?a tiene fiebre, es posible que deba aislarse por m?s de 5 d?as. ?Despu?s de aislarse al 5 d?as, use jayesh mascarilla con todas las dem?s personas al al menos 5 d?as m?s. Algunas personas utilizan pruebas de ant?genos para decidir cu?nto tiempo deben seguir usando la mascarilla. Si hace esto, puede dejar de usar jayesh mascarilla jayesh vez que d? negativo en 2 pruebas de ant?genos realizadas con al menos 2 d?as de diferencia. ?Si jen s?ntomas son graves o si corre riesgo de sufrir jayesh enfermedad grave, llame a west m?dico o enfermera. Ellos pueden decirle si necesita que lo atiendan. Dependiendo de west situaci?n, podr?an sugerirle un tratamiento. Prescriptions: New ibuprofen 600 mg tablet 600 mg PO Q6H PRN (Reason: pain or fever) Qty: 30 0RF acetaminophen [Tylenol Extra Strength] 500 mg tablet 500 mg PO Q6H PRN (Reason: pain or fever) Qty: 30 0RF prednisone 20 mg tablet 20 mg PO DAILY 5 Days Qty: 5 0RF No Action naproxen 500 mg tablet 500 mg PO BID 90 Days Qty: 180 1RF cetirizine 10 mg tablet 10 mg PO DAILY 90 Days Qty: 90 1RF tranexamic acid [Lysteda] 650 mg tablet 1,300 mg PO TID 5 Days Qty: 30 2RF Rx Instructions: Start 1st day of menses and take it up to 3-5 days of menses. cholecalciferol (vitamin D3) 50 mcg (2,000 unit) capsule 50 mcg PO DAILY 90 Days Qty: 90 1RF epinephrine 0.3 mg/0.3 mL auto-injector 0.3 mg IM Q4H PRN (Reason: anaphylaxis) Qty: 2 0RF polyethylene glycol 3350 [Miralax] 17 gram/dose powder 17 g PO ONCE Qty: 238 0RF albuterol sulfate [Ventolin HFA] 90 mcg/actuation HFA aerosol inhaler 90 mcg inhalation NEEDED 30 Days Qty: 18 6RF bisacodyl 10 mg suppository 10 mg IN DAILY PRN (Reason: constipation) Qty: 50 3RF Nucala 100 mg/mL syringe 100 mg subcut Q4W 28 Days Qty: 1 12RF metronidazole 500 mg tablet 500 mg PO BID 7 Days Qty: 14 0RF miconazole nitrate [Monistat 7] 2 % cream 1 appful vaginal BEDTIME 7 Days Qty: 45 0RF Advair HFA 115-21 mcg/actuation HFA aerosol inhaler 2 puff inhalation BID ipratropium-albuterol 0.5 mg-3 mg(2.5 mg base)/3 mL solution for nebulization 3 ml inhalation BID hydrocortisone [Proctosol HC] 2.5 % cream with perineal applicator 1 appl IN BID PRN (Reason: hemorrhoids) Qty: 30 3RF fluticasone propionate 50 mcg/actuation spray,suspension 50 mcg intranasal DAILY rabeprazole [AcipHex] 20 mg tablet,delayed release (DR/EC) 20 mg PO DAILY Qty: 30 6RF Stand Alone Forms: Work/School Release Interventions: ED Discharge Assessment Last Done: 06/14/23 21:06 Discharge Date/Time: 06/14/23 21:06 Print Language: Yoruba
[2023-06-14 17:18] VITALS: BP 148/79; PULSE 89; RESP 20; TEMP 37.2; O2SAT 99; BMI 24.7
[2023-06-14 18:03] LABS: IDNOW Serial# 6674DD1D; Influenza A Negative (Negative)
[2023-06-14 18:04] LABS: Influenza B2 Negative (Negative)
[2023-06-14 18:12] LABS: COVID-19 Test Positive (Negative); IDNOW Serial# 152EDE1D
[2023-06-14 20:00] LABS: Basophils Percent Auto 0.8 % (0-2); Eosinophils Percent Auto 0.8 % (0-4); Hematocrit 38.8 % (37.0-47.0); Hemoglobin 12.8 g/dl (12.0-16.0); Imm Gran Abs Auto 0.01 X10*3/uL (0.00-0.03); Imm Gran Pct Auto 0.3 % (0.0-0.4); Lymphocytes Absolute Auto 1.7 X10*3/uL (1.2-4.9); Lymphocytes Percent Auto 41.4 % (20-40); MANUAL DIFF FLAG NO; Mean Corpuscular Hemoglobin 31.8 pg (27.0-33.0); Mean Corpuscular Volume 96.3 fL (80.0-98.0); Mean Platelet Volume 9.7 fL (9.4-12.3); Monocytes Absolute Auto 0.4 X10*3/uL (0.1-1.2); Monocytes Percent Auto 10.8 % (2-11); Neutrophils Absolute Auto 1.8 x10*3/uL (2.0-8.3); Neutrophils Percent Auto 45.9 % (45-73); Platelet Count 263 X10*3/uL (160-400); Red Blood Count 4.03 X10*6/uL (4.20-5.50)
[2023-06-14 20:14] LABS: Alanine Aminotransferase 27 U/L (0-31); Albumin Level 4.3 g/dL (3.5-5.0); Alkaline Phosphatase 65 U/L (39-117); Anion Gap 11 (12-20); Aspartate Amino Transferase 22 U/L (5-31); Bilirubin Total 0.3 mg/dL (0.0-1.0); Blood Urea Nitrogen 10 mg/dL (9-16); Calcium 9.4 mg/dL (8.4-10.2); Carbon Dioxide 28 mmol/L (22-29); Chloride 105 mmol/L (96-108); Creatinine Clr Calc Pharmacy 71.7; Estimated Glomerular Filt Rate > 60; Glucose Random 93 mg/dL (60-115); Lipase 31 U/L (8-78); Magnesium 2.2 mg/dL (1.6-2.6); Potassium 4.4 mmol/L (3.3-5.1); Sodium 140 mmol/L (135-145); Total Protein 7.8 g/dL (6.5-8.0)
[2023-06-14 20:25] LABS: Troponin-I High Sensitivity < 2.7 ng/L (<3.5-17.0)
--- NOTE | 2023-06-14 20:29 | ECG_ITS ---
Test Reason : CHEST PAIN Blood Pressure : / mmHG Vent. Rate : 066 BPM Atrial Rate : 066 BPM P-R Int : 162 ms QRS Dur : 066 ms QT Int : 366 ms P-R-T Axes : 056 065 058 degrees QTc Int : 383 ms Normal sinus rhythm Normal ECG When compared with ECG of 14-JUL-2019 14:38, No significant change was found Referred By: Roxana Tan Electronically Signed By:HÉCTOR SEALS
== END 2023-06-14 21:06 | disposition home or self-care (01) ==
PROVIDERS: Physician Assistant Medical; Emergency Provider Internal Medicine; PCP Internal Medicine
DX: U07.1 COVID-19 (principal); R05.9 Cough, unspecified; R07.89 Other chest pain; R06.02 Shortness of breath; R11.2 Nausea with vomiting, unspecified; Z79.899 Other long term (current) drug therapy
CPT/HCPCS: 36415; 71046; 80053; 83690; 83735; 84484; 85025; 87502; 87635; 93005; 99283

== ENCOUNTER → 2023-06-14 20:29 | Outpatient (BNV) | payer OTHER, SELFPAY | PROVIDERS: Emergency Provider Internal Medicine; PCP Internal Medicine; Visit Provider Internal Medicine | DX: R07.9 Chest pain, unspecified (principal) | CPT/HCPCS: 93010 ==

== ENCOUNTER 2023-07-02 15:41 | Outpatient (AMB) | payer OTHER, SELFPAY ==
[2023-07-02 15:43] VITALS: BP 100/58; PULSE 82; O2SAT 100; BMI 25.5
--- NOTE | 2023-07-02 15:43 | A.OFFVIS_ITS ---
Intake Vital Signs 07/02/23 15:43 Height 4 ft 9 in Weight 117 lb 15.157 oz BMI 25.5 BP 100/58 L Blood Pressure Location Lt brachial Position Sitting Pulse 82 Pulse Source Doppler Pulse Oximetry (%) 100 Oxygen Delivery Method Room Air Intake Visit Reasons: Asthma Servicing Rep Required: Yes Servicing Rep Name: Nikole Ramos Allergies Beef Containing Products [BEEF CONTAINING PRODUCTS] Allergy (Intermediate, Verified 07/02/23 15:48) ITCHY lactose Allergy (Mild, Verified 07/02/23 15:48) Itching tramadol [TRAMADOL] Allergy (Unknown, Verified 07/02/23 15:48) TACHYCARDIA/SOB, anaphylaxis meperidine [From Demerol] Allergy (Verified 07/02/23 15:48) Vomiting metronidazole Adverse Reaction (Intermediate, Verified 07/02/23 15:48) stomach pain, shellfish Allergy (Unknown, Uncoded 06/14/23 17:18) anaphylaxis HPI Asthma HPI Details 43-year-old lady, nonsmoker, followed fo r severe persistent allergic asthma and environmental allergies.?Patient has been using Advair and albuterol MDI. She was started on Nucala, but she only had one injection so far.. She denies any recent exacerbations. [facility] Medical History Dizziness Chronic sinusitis Iron deficiency anemia due to chronic blood loss Tachycardia GERD (gastroesophageal reflux disease) Left knee pain Mild asthma History of ectopic Surgical History History of esophagogastroduodenoscopy (EGD) H/O tubal ligation History of Family History Father Diabetes Mother Diabetes Maternal Grandmother Hypertension Maternal Grandfather Hypertension Lung cancer Paternal Grandfather Hypertension Paternal Grandmother Hypertension Social History Household Members: Spouse and Children Housing: House Are you a primary patient centered care specialist to a significant other at home: No Do you presently have visiting nurse or other home services: Yes Alcohol intake: never Patient Tobacco Use Status: Never used Tobacco e-Cigarette/Vaping Use: Never Used Second Hand Smoke Exposure: No service: No Current occupational status: unemployed Current occupation: Right handed Gender identity: Female Cognitive needs: No Hearing needs: No Vision needs: No Female Reproductive History Menstrual Age of Menarche: 14 Review of Systems Const Denies daytime sleepiness, Denies excessive sweating, Denies fatigue, Denies fever(s), Denies lethargy, Denies malaise, Denies night sweats, Denies snoring and Denies weight loss Eyes Denies blurry vision and Denies itchy eyes ENT Denies nasal congestion, Denies post nasal drip, Denies sinus pain, Denies sinus pressure and Denies other ( Thrush) Card Denies chest pain, Denies pedal edema, Denies dyspnea, Denies orthopnea and Denies paroxysmal nocturnal dyspnea Resp Denies cough, Denies hemoptysis, Denies excessive phlegm production, Denies dyspnea, Denies snoring and Denies wheezing GI Denies abdominal pain and Denies heartburn Musc Denies myalgias, Denies arthralgias and Denies joint swelling Skin/Breast Denies rash Neuro Denies memory loss and Denies seizure-like activity Psych Denies abnormal sleep pattern, Denies anxiety and Denies memory loss Endo Denies excessive sweating, Denies fatigue and Denies heat intolerance Roney/Lymph Denies easy bruising Aller/Immun Denies itchy eyes, Denies seasonal rhinorrhea and Denies wheezing Physical Exam Vital Signs: Last Vital Signs Pulse 82 07/02/23 15:43 BP 100/58 L 07/02/23 15:43 Pulse Ox 100 07/02/23 15:43 Oxygen Delivery Method Room Air 07/02/23 15:43 BMI result Body Mass Index 25.5 Const General: no acute distress and alert Nutritional Appearance: not obese Orientation/consciousness: Other orientation findings ( oriented) HEENT Head: Yes atraumatic Eyes General: appearance normal, both eyes and all related structures Sclerae: sclerae normal EOM: EOMs intact bilaterally Neck Neck: Yes supple Lymphatic: no lymphadenopathy noted Resp Effort & Inspection: normal respiratory effort and no use of accessory muscles Auscultation: clear to auscultation bilaterally Cardio Rate: regular rate Rhythm: regular rhythm Heart sounds: no gallops, no murmurs and no rubs Skin General skin exam: other ( warm) Extrem General: No clubbing, No cyanosis and No edema Assessment & Plan Assessment & Plan (1) Environmental allergies: Code(s): Z91.09 - Other allergy status, other than to drugs and biological substances Plan: Expect to improve on Nucala. Continue current regimen. (2) Asthma: Code(s): J45.909 - Unspecified asthma, uncomplicated Qualifiers: Asthma severity: mild Asthma persistence: persistent Asthma complication type: uncomplicated Qualified Code(s): J45.30 - Mild persistent asthma, uncomplicated Plan: Suboptimal control on Advair and albuterol MDI. Expect to improve on Nucala. Medications: Changed From fluticasone propion-salmeterol 115-21 mcg/actuation (Advair HFA) 2 puffs inhalation BID To fluticasone propion-salmeterol 115-21 mcg/actuation (Advair HFA) 2 puffs inhalation BID 30 days 1 ea 6RF From prednisone 20 mg PO DAILY 5 days 5 tabs 0RF To prednisone 40 mg (2 x 20 mg) PO DAILY 7 days 14 tabs 0RF Coding Level of Care Code Est Pt Level 4 (10694) Diagnoses Environmental allergies Z91.09 Mild persistent asthma without complication J45.30 Asthma severity: mild Asthma persistence: persistent Asthma complication type: uncomplicated
== END 2023-07-02 15:56 | disposition home or self-care (01) ==
PROVIDERS: PCP Internal Medicine; Visit Provider Internal Medicine Pulmonary Disease
DX: Z91.09 Other allergy status, other than to drugs and biological substances (principal); J45.30 Mild persistent asthma, uncomplicated
CPT/HCPCS: 99214

== ENCOUNTER → 2023-07-02 15:41 | Outpatient (BNVA) | payer OTHER, SELFPAY | PROVIDERS: PCP Internal Medicine; Visit Provider Internal Medicine Pulmonary Disease | DX: J45.30 Mild persistent asthma, uncomplicated (principal); Z91.09 Other allergy status, other than to drugs and biological substances | CPT/HCPCS: 99212 ==

== ENCOUNTER 2023-07-27 17:14 | Outpatient (AMB) | payer OTHER, SELFPAY ==
[2023-07-27 17:16] VITALS: BP 102/70; BMI 25.1
--- NOTE | 2023-07-27 17:16 | MHC.PC.OV ---
Vital Signs 07/27/23 17:16 Height 4 ft 9 in Weight 116 lb BMI 25.1 BP 102/70 Blood Pressure Location Lt brachial Position Sitting Intake Visit Reasons: asthma Intake Note: Patient here for a follow up Asthma, c/o frequent cough, ear aches, dizziness, headaches, lower back pain after covid Green Chain Off Bearer Required: No Accompanied by: Self / Same As Patient Allergies Beef Containing Products [BEEF CONTAINING PRODUCTS] Allergy (Intermediate, Verified 07/27/23 17:32) ITCHY lactose Allergy (Mild, Verified 07/27/23 17:32) Itching tramadol [TRAMADOL] Allergy (Unknown, Verified 07/27/23 17:32) TACHYCARDIA/SOB, anaphylaxis meperidine [From Demerol] Allergy (Verified 07/27/23 17:32) Vomiting metronidazole Adverse Reaction (Intermediate, Verified 07/27/23 17:32) stomach pain, shellfish Allergy (Unknown, Uncoded 07/27/23 17:32) anaphylaxis Medication List - Last Reconciled 07/27/23 by Kaylee Acuna MD acetaminophen (Tylenol Extra Strength) 500 mg PO Q6H PRN bisacodyl 10 mg DE DAILY PRN cetirizine 10 mg PO DAILY 90 days cholecalciferol (vitamin D3) 50 mcg PO DAILY 90 days epinephrine 0.3 mg (0.3 mL) IM Q4H PRN famotidine 40 mg PO DAILY fluticasone propion-salmeterol 115-21 mcg/actuation (Advair HFA) 2 puffs inhalation BID 30 days fluticasone propionate 50 mcg/actuation 50 mcg intranasal DAILY hydrocortisone 2.5% (Proctosol HC) 1 appl DE BID PRN ipratropium-albuterol 0.5 mg-3 mg(2.5 mg base)/3 mL 3 mL inhalation BID mepolizumab (Nucala) 100 mg subcut Q4W 28 days naproxen 500 mg PO BID 90 days rabeprazole (AcipHex) 20 mg PO DAILY tranexamic acid (Lysteda) 1,300 mg (2 x 650 mg) PO TID 5 days Ventolin HFA 90 mcg/actuation (albuterol sulfate) 90 mcg inhalation NEEDED 30 days NS Tobacco use date assessed: 07/27/23 Dental Screening Dental Screen Date: 07/27/23 Did you have a dental visit in the last 12 months?: Yes Did you have a dental problem in the last 6 months where you did not have access to dental care?: No Was dental information given to patient?: Patient has dentist HPI HPI Comments History of Present Illness Details This is 43-year-old female with asthma, GERD, and chronic idiopathic constipation that comes today complaining of nasal congestion, sore throat and dry cough that started 2-3 days ago associated with bilateral ear discomfort. No chest pain or shortness of breath. Will start her on antibiotics. No fever. On long-acting inhaler for her asthma and use rescue inhaler as needed. Asthma is follow by pulmonology. GERD stable with famotidine as needed. Constipation well controlled with bisacodyl as needed. [facility] Medical History (Updated 07/27/23 @ 18:00 by Kaylee Acuna MD) Dizziness Chronic sinusitis Iron deficiency anemia due to chronic blood loss Tachycardia GERD (gastroesophageal reflux disease) Left knee pain Mild asthma History of ectopic Surgical History History of esophagogastroduodenoscopy (EGD) H/O tubal ligation History of Family History Father Diabetes Mother Diabetes Maternal Grandmother Hypertension Maternal Grandfather Hypertension Lung cancer Paternal Grandfather Hypertension Paternal Grandmother Hypertension Social History Household Members: Spouse and Children Housing: House Are you a primary care transition manager to a significant other at home: No Do you presently have visiting nurse or other home services: Yes Alcohol intake: never Patient Tobacco Use Status: Never used Tobacco e-Cigarette/Vaping Use: Never Used Second Hand Smoke Exposure: No service: No Current occupational status: unemployed Current occupation: Right handed Gender identity: Female Cognitive needs: No Hearing needs: No Vision needs: No Female Reproductive History Menstrual Age of Menarche: 14 Questionnaire PHQ-9 Over the last 2 weeks, how often have you been bothered by any of the following problems? 1. Little interest or pleasure in doing things: not at all 2. Feeling down, depressed, or hopeless: not at all 3. Trouble falling or staying asleep, or sleeping too much: not at all 4. Feeling tired or having little energy: not at all 5. Poor appetite or overeating: not at all 6. Feeling bad about yourself - or that you are a failure or have let yourself or your family down: not at all 7. Trouble concentrating on things, such as reading the newspaper or watching television: not at all 8. Moving or speaking so slowly that other people could have noticed. Or the opposite - being so fidgety or restless that you have been moving around a lot more than usual: not at all 9. Thoughts that you would be better off or of hurting yourself in some way: not at all Total score: 0 Depression Screening Interpretation: Negative Depression Screening Done: Yes 41886 - PHQ-9 Billing: Yes Source: Developed by Drs. Bib Freitas, Lilian Hernández, Nixon Bertrand and colleagues, with an educational aamir from [employer]. Thrive Questionnaire Date Thrive assessed: 07/27/23 I am a: Patient What is your living situation today?: I have a steady place to live Within the past 12 months, did the food you bought not last and you didn't have the money to get more?: Never true Within the past 12 months, did you worry whether your food would run out before you got money to buy more?: Never true Do you have trouble paying for medicines?: No Do you have trouble getting transportation to medical appointments?: No Do you have trouble paying your heating and electricity bill?: No Do you have trouble taking care of your child, family member or friend?: No Do you have trouble with day-to-day activities such as bathing, preparing meals, shopping, managing finances, etc.?: No Are you currently unemployed and looking for a job?: No Are you interested in more education?: No Please select the resources that you would like help with: None Currently or been in a relationship where the following occur: no concerns reported THRIVE Score: 0 AUDIT C Alcohol Use Questionnaire (AUDIT-C) 1. How often do you have a drink containing alcohol?: Never Total Score: 0 LEON-7 AMB Questionnaire LEON-7 Date LEON - 7 assessed: 07/27/23 Feeling nervous, anxious, or on edge: 0 = Not at all Not being able to stop or control worryin = Not at all Worrying too much about different things: 0 = Not at all Trouble relaxin = Not at all Being so restless that it is hard to sit still: 0 = Not at all Becoming easily annoyed or irritable: 0 = Not at all Feeling afraid as if something awful might happen: 0 = Not at all Total LEON-7 score (0-4 normal; 5-9 mild; 10-14 moderate; 15-21 severe): 0 Source: Developed by Drs. Bib Freitas, Lilian Hernández, Nixon Bertrand and colleagues, with an educational aamir from [employer]. LEON-7 Assessment Billing LEON-7 Assessment Tool: LEON-7 Assessment 67268 Review of Systems Const All systems reviewed & are unremarkable except as noted in HPI and below Eyes Reports no additional complaints, Denies change in vision and Denies other visual disturbances Card Denies chest pain at rest, Denies chest pain with activity, Denies edema, Denies irregular heart rhythm, Denies claudication, Denies dyspnea, Denies dyspnea on exertion, Denies orthopnea, Denies paroxysmal nocturnal dyspnea and Denies slow heart rate Resp Denies cough, Denies dyspnea and Denies dyspnea on exertion GI Denies abdominal pain, Denies change in bowel habits, Denies excessive flatus, Denies nausea and Denies vomiting Denies urinary incontinence, Denies urinary hesitancy and Denies urinary urgency Musc Denies atrophy, Denies deformity and Denies limited range of motion Physical exam (Primary Care) Vital Signs: Last Vital Signs BP 102/70 07/27/23 17:16 BMI result Body Mass Index 25.1 Tobacco/Smoking Status: Tobacco use Status Tobacco use date assessed 07/27/23 07/27/23 17:26 Patient Tobacco Use Status Never used Tobacco 07/27/23 17:26 e-Cigarette/Vaping Use Never Used 07/27/23 17:26 PHQ-9: PHQ-9 Score PHQ-9: Total score 0 07/27/23 17:36 Depression Screening Interpretation: Negative Thrive Assessment: Date of Thrive Assessment Date Thrive assessed 07/27/23 07/27/23 17:26 Currently or been in a relationship where the following occur: no concerns reported HENMT Head: Yes normal to inspection, Yes normocephalic and Yes atraumatic Ears: external ears normal Face and sinus: Yes sinuses nontender Mouth: lip normal Neck Neck: Yes normal visual inspection and Yes supple Resp Effort & Inspection: normal respiratory effort Auscultation: clear to auscultation bilaterally Cardio Jugular venous distension: no JVD Rate: regular rate Rhythm: regular rhythm Heart sounds: S1 normal heart sound present and S2 normal heart sound present Extrem General: Yes full ROM Assessment and Plan Assessment & Plan (1) URI (upper respiratory infection): Code(s): J06.9 - Acute upper respiratory infection, unspecified Plan: Start Augmentin. (2) Asthma: Code(s): J45.909 - Unspecified asthma, uncomplicated Qualifiers: Asthma severity: mild Asthma persistence: persistent Asthma complication type: uncomplicated Qualified Code(s): J45.30 - Mild persistent asthma, uncomplicated Plan: Continue long-acting inhaler. Continue Nucala. Follow-up with pulmonology. Collier rescue inhaler as needed. (3) GERD (gastroesophageal reflux disease): Code(s): K21.9 - Gastro-esophageal reflux disease without esophagitis Plan: Continue famotidine. (4) Chronic idiopathic constipation: Code(s): K59.04 - Chronic idiopathic constipation Plan: Continue bisacodyl as needed. Orders: Orders XR KUKishor Today M54.9 - Dorsalgia, unspecified Medications: New methocarbamol 500 mg PO BEDTIME 5 days 5 tabs 0RF amoxicillin-pot clavulanate 875-125 mg 1 tab PO BID 7 days 14 tabs 0RF famotidine 40 mg PO DAILY 90 days 90 tabs 0RF Refilled bisacodyl 10 mg DE DAILY PRN 50 ea 3RF constipation epinephrine 0.3 mg (0.3 mL) IM Q4H PRN 2 ea 0RF anaphylaxis naproxen 500 mg PO BID 90 days 180 tabs 1RF cetirizine 10 mg PO DAILY 90 days 90 tabs 1RF cholecalciferol (vitamin D3) 50 mcg PO DAILY 90 days 90 caps 1RF Coding Level of Care Code Est Pt Level 4 (65027) Diagnoses URI (upper respiratory infection) J06.9 Mild persistent asthma without complication J45.30 Asthma severity: mild Asthma persistence: persistent Asthma complication type: uncomplicated GERD (gastroesophageal reflux disease) K21.9 Chronic idiopathic constipation K59.04 Additional Codes LEON-7 Assessment Billing - LEON-7 Assessment Tool: LEON-7 Assessment 22243 ([id number]) Time Spent (min) 24
== END 2023-07-27 17:41 | disposition home or self-care (01) ==
LOC: HO.HMGH 17:15
PROVIDERS: PCP Internal Medicine; Visit Provider Internal Medicine
DX: J06.9 Acute upper respiratory infection, unspecified (principal); J45.30 Mild persistent asthma, uncomplicated; K21.9 Gastro-esophageal reflux disease without esophagitis; K59.04 Chronic idiopathic constipation
CPT/HCPCS: 99214

== ENCOUNTER 2023-08-07 16:11 | Outpatient (REF) | payer OTHER, SELFPAY ==
--- NOTE | ~2023-08-07 | XR_ITS ---
EXAMINATION: XR ABDOMEN KUB CLINICAL INDICATION: Dorsalgia. COMPARISON: KUB dated 01/26/2023; abdominal ultrasound dated 06/06/2022; CT abdomen and pelvis dated 01/11/2021. TECHNIQUE: AP view of the abdomen. FINDINGS: The bowel gas pattern is normal with no evidence of ileus or obstruction. No unusual soft tissue calcifications are noted. There are multiple pelvic phleboliths. The bones are unremarkable. XR/XR KUB IMPRESSION: Unremarkable examination.
== END 2023-08-07 16:12 | disposition home or self-care (01) ==
LOC: HO.XRAY 16:11
PROVIDERS: PCP Internal Medicine; Visit Provider Internal Medicine
DX: M54.9 Dorsalgia, unspecified (principal)
CPT/HCPCS: 74018

== ENCOUNTER 2023-09-28 15:49 | Outpatient (AMB) | payer OTHER, SELFPAY ==
[2023-09-28 15:51] VITALS: BP 98/62; PULSE 91; O2SAT 99; BMI 25.7
--- NOTE | 2023-09-28 15:51 | A.OFFVIS_ITS ---
Vital Signs 09/28/23 15:51 Height 4 ft 9 in Weight 119 lb BMI 25.7 BP 98/62 Blood Pressure Location Rt brachial Position Sitting Pulse 91 Pulse Source Doppler Pulse Oximetry (%) 99 Oxygen Delivery Method Room Air Intake Visit Reasons: Asthma Jack Winder Required: Yes Jack Winder Name: Nikole Ramos Allergies Beef Containing Products [BEEF CONTAINING PRODUCTS] Allergy (Intermediate, Verified 09/28/23 15:55) ITCHY lactose Allergy (Mild, Verified 09/28/23 15:55) Itching tramadol [TRAMADOL] Allergy (Unknown, Verified 09/28/23 15:55) TACHYCARDIA/SOB, anaphylaxis meperidine [From Demerol] Allergy (Verified 09/28/23 15:55) Vomiting metronidazole Adverse Reaction (Intermediate, Verified 09/28/23 15:55) stomach pain, shellfish Allergy (Unknown, Uncoded 07/27/23 17:32) anaphylaxis HPI HPI Asthma: Details: 43-year-old lady, nonsmoker, followed for severe persistent allergic asthma and environmental allergies.?Patient has been using Advair and albuterol MDI. She was started on Nucala, but she was not able to schedule follow-up injections. She denies any recent exacerbations. [facility] Medical History Dizziness Chronic sinusitis Iron deficiency anemia due to chronic blood loss Tachycardia GERD (gastroesophageal reflux disease) Left knee pain Mild asthma History of ectopic Surgical History History of esophagogastroduodenoscopy (EGD) H/O tubal ligation History of Family History Father Diabetes Mother Diabetes Maternal Grandmother Hypertension Maternal Grandfather Hypertension Lung cancer Paternal Grandfather Hypertension Paternal Grandmother Hypertension Social History Household Members: Spouse and Children Housing: House Are you a primary child care coordinator to a significant other at home: No Do you presently have visiting nurse or other home services: Yes Alcohol intake: never Patient Tobacco Use Status: Never used Tobacco e-Cigarette/Vaping Use: Never Used Second Hand Smoke Exposure: No service: No Current occupational status: unemployed Current occupation: Right handed Gender identity: Female Cognitive needs: No Hearing needs: No Vision needs: No Female Reproductive History Menstrual Age of Menarche: 14 Review of Systems Const Denies daytime sleepiness, Denies excessive sweating, Denies fatigue, Denies fever(s), Denies lethargy, Denies malaise, Denies night sweats, Denies snoring and Denies weight loss Eyes Denies blurry vision and Denies itchy eyes ENT Denies nasal congestion, Denies post nasal drip, Denies sinus pain, Denies sinus pressure and Denies other ( Thrush) Card Denies chest pain, Denies pedal edema, Denies dyspnea, Denies orthopnea and Denies paroxysmal nocturnal dyspnea Resp Denies cough, Denies hemoptysis, Denies excessive phlegm production, Denies dyspnea, Denies snoring and Denies wheezing GI Denies abdominal pain and Denies heartburn Musc Denies myalgias, Denies arthralgias and Denies joint swelling Skin/Breast Denies rash Neuro Denies memory loss and Denies seizure-like activity Psych Denies abnormal sleep pattern, Denies anxiety and Denies memory loss Endo Denies excessive sweating, Denies fatigue and Denies heat intolerance Roney/Lymph Denies easy bruising Aller/Immun Denies itchy eyes, Denies seasonal rhinorrhea and Denies wheezing Physical Exam Vital Signs: Last Vital Signs Pulse 91 09/28/23 15:51 BP 98/62 09/28/23 15:51 Pulse Ox 99 09/28/23 15:51 Oxygen Delivery Method Room Air 09/28/23 15:51 BMI result Body Mass Index 25.7 Const General: no acute distress and alert Nutritional Appearance: not obese Orientation/consciousness: Other orientation findings ( oriented) HEENT Head: Yes atraumatic Eyes General: appearance normal, both eyes and all related structures Sclerae: sclerae normal EOM: EOMs intact bilaterally Neck Neck: Yes supple Lymphatic: no lymphadenopathy noted Resp Effort & Inspection: normal respiratory effort and no use of accessory muscles Auscultation: clear to auscultation bilaterally Cardio Rate: regular rate Rhythm: regular rhythm Heart sounds: no gallops, no murmurs and no rubs Skin General skin exam: other ( warm) Extrem General: No clubbing, No cyanosis and No edema Assessment & Plan Assessment & Plan (1) Environmental allergies: Code(s): Z91.09 - Other allergy status, other than to drugs and biological substances Category: Medical Plan: Expect to improve on Nucala. Continue Flonase. (2) Severe persistent asthma: Code(s): J45.50 - Severe persistent asthma, uncomplicated Category: Medical Plan: Suboptimal control on Advair, duo nebs, albuterol MDI. Expect to improve on Nucala. Continue baseline regimen. Coding Level of Care Code Est Pt Level 4 (59990) Diagnoses Environmental allergies Z91.09 Severe persistent asthma J45.50
== END 2023-09-28 16:03 | disposition home or self-care (01) ==
PROVIDERS: PCP Internal Medicine; Visit Provider Internal Medicine Pulmonary Disease
DX: Z91.09 Other allergy status, other than to drugs and biological substances (principal); J45.50 Severe persistent asthma, uncomplicated
CPT/HCPCS: 99214

== ENCOUNTER → 2023-09-28 15:49 | Outpatient (BNVA) | payer OTHER, SELFPAY | PROVIDERS: PCP Internal Medicine; Visit Provider Internal Medicine Pulmonary Disease | DX: J45.50 Severe persistent asthma, uncomplicated (principal); Z91.09 Other allergy status, other than to drugs and biological substances | CPT/HCPCS: 99212 ==

== ENCOUNTER 2023-11-13 16:10 | Outpatient (AMB) | payer OTHER, SELFPAY ==
--- NOTE | 2023-11-13 16:17 | MHC.OFFVIS ---
Vital Signs 11/13/23 16:21 Height 4 ft 10 in Intake Visit Reasons: Follow up GERD Intake Note: Patient presents to in office visit today in follow up of GERD. CC: Patient reports constipation, abdominal pain, heartburn, and seeing a little bit of blood last time she vomited at the end of September. Manager Customer Service Required: Yes Accompanied by: Self / Same As Patient Allergies Beef Containing Products [BEEF CONTAINING PRODUCTS] Allergy (Intermediate, Verified 11/13/23 16:31) ITCHY lactose Allergy (Mild, Verified 11/13/23 16:31) Itching tramadol [TRAMADOL] Allergy (Unknown, Verified 11/13/23 16:31) TACHYCARDIA/SOB, anaphylaxis meperidine [From Demerol] Allergy (Verified 11/13/23 16:31) Vomiting metronidazole Adverse Reaction (Intermediate, Verified 11/13/23 16:31) stomach pain, shellfish Allergy (Unknown, Uncoded 10/02/23 15:42) anaphylaxis HPI HPI Follow up GERD: Details: Assessment & Plan (1) GERD (gastroesophageal reflux disease): ?Code(s): K21.9 - Gastro-esophageal reflux disease without esophagitis ?Plan: [place] #[place] Live The colonoscopy needs to be repeated in 5 years r/t FHX CRc.? The procedure was well tolerated.? The results were explained and the patient is agreeable to the follow-up interval as stated.? The bowel pattern has returned to normal.? Education was provided to tell any 1st degree relatives about their findings to be sure that they are screened by age 45.? Educated that they will be put on a recall list when it is time for their repeat scope but should they move out of state or away from the hospital they will need to remember along with their primary to repeat the procedure in a timely fashion to avoid any adverse complications. She received the rabeprazole 20mg but she is not sure if she got #30, or #60 but she is only taking it prn. I advise her to take it every morning in the am, but if she has #60 she can take it bid - NOT prn. I say this because she still is having frequent HB with eating and epigastric pain. OVERALL, she feels that this is the best of the PPI's so far. She manages the [facility] with bisacodyl supps. ROV 8 weeks (2) Chronic idiopathic constipation: ?Code(s): K59.04 - Chronic idiopathic constipation (3) Family history of colon cancer: ?Comment: 2022 scope negative repeat in 5 years ?Code(s): Z80.0 - Family history of malignant neoplasm of digestive organs ? ? ? Medications: New bisacodyl 10 mg? [place] DAILY PRN 100 ea 6RF constipation K59.04 - Chronic idiopathic constipation ? Changed From rabeprazole (AcipHex) 20 mg? PO BID 60 tabs 6RF K21.9 - Gastro-esophageal reflux disease without esophagitis ? To rabeprazole (AcipHex) 20 mg? PO DAILY 30 tabs 6RF K21.9 - Gastro-esophageal reflux disease without esophagitis ? Discontinued dicyclomine ?? Discontinued Reason:? Doctor's Order 10 mg? PO TID 90 caps 3RF K58.9 - Irritable bowel syndrome without diarrhea ? pantoprazole (Protonix) ?? Discontinued Reason:? Doctor's Order 40 mg? PO BID 30 days 60 tabs 1RF ? ? famotidine ?? Discontinued Reason:? Doctor's Order 40 mg? PO BEDTIME 30 tabs 6RF ? ? bisacodyl (Dulcolax (bisacodyl)) ?? Discontinued Reason:? Doctor's Order 10 mg (2 x 5 mg) PO ONCE 1 day 2 tabs 0RF ? TODAYS VISIT [place] #[place] Live She has been having a feeling of early and sustained satiety since September. However, despite multiple attempts to educate her that she needs to take it EVERY DAY she still is not taking it consistently. This is the likely reason, she is also c/o nausea and had one episode of vomiting. She is also having PM heartburn. I don; think we can move forward until she takes her aciphex every day. She is using the bisacodyl every day now twice a day. Return office visit in 6 weeks [facility] Medical History (Updated 11/13/23 @ 16:29 by MYRON Mota) Well woman exam with routine gynecological exam Cervical cancer screening URI (upper respiratory infection) COVID-19 Dizziness Chronic sinusitis Iron deficiency anemia due to chronic blood loss Tachycardia GERD (gastroesophageal reflux disease) Left knee pain Mild asthma History of ectopic Surgical History History of esophagogastroduodenoscopy (EGD) H/O tubal ligation History of Family History Father Diabetes Mother Diabetes Maternal Grandmother Hypertension Maternal Grandfather Hypertension Lung cancer Paternal Grandfather Hypertension Paternal Grandmother Hypertension Social History Household Members: Spouse and Children Housing: House Are you a primary home care associate to a significant other at home: No Do you presently have visiting nurse or other home services: Yes Alcohol intake: never Patient Tobacco Use Status: Never used Tobacco e-Cigarette/Vaping Use: Never Used Second Hand Smoke Exposure: No service: No Current occupational status: unemployed Current occupation: Right handed Gender identity: Female Cognitive needs: No Hearing needs: No Vision needs: No Female Reproductive History Menstrual Age of Menarche: 14 Review of Systems Const Denies fatigue, Denies fever(s), Denies night sweats, Reports poor appetite and Denies weight loss ENT Reports Normal hearing present, Denies dental pain, Denies dysphagia, Denies hearing loss, Denies mouth pain, Denies odynophagia, Denies throat swelling, Denies tongue swelling and Reports other (Dentition adequate) Card Reports no additional complaints Resp Reports no additional complaints GI Details: Denies abdominal pain, Denies melena, Reports bloating, Denies hematochezia, Reports constipation, Denies GI cramping, Denies dysphagia, Denies excessive flatus, Denies early satiety, Reports heartburn, Denies diarrhea, Denies nausea, Denies odynophagia, Denies vomiting and Denies hematemesis Skin/Breast Denies pruritus, Denies lesions, Denies rash and Denies jaundice Neuro Reports Normal hearing present and Denies Abnormal speech present Endo Denies fatigue Aller/Immun Denies throat swelling and Denies tongue swelling Physical Exam Const General: cooperative, no acute distress, well developed and well groomed Nutritional Appearance: average body habitus and well nourished Orientation/consciousness: oriented to person, oriented to place and oriented to time Limitations: language barrier HEENT Head: Yes normocephalic and Yes atraumatic Eyes General: appearance normal, both eyes and all related structures Pupils: Equal, round and reactive pupils present Neck Neck: Yes normal visual inspection and Yes no lymphadenopathy Thyroid: Thyroid normal Resp Effort & Inspection: normal respiratory effort and able to speak in complete sentences Auscultation: clear to auscultation bilaterally Cardio Rate: regular rate Rhythm: regular rhythm Heart sounds: Normal, physiologic split S2 sound present Peripheral pulses: radial pulses present and posterior tibial pulses present GI Inspection: No distended and No Abdominal panniculus present Palpation (GI): Soft to palpation, nontender, no guarding, not rigid and No hepatosplenomegaly present Percussion: Yes normal to percussion Auscultation: normal bowel sounds Rectal Exam - Female: deferred Skin General skin exam: no rashes or lesions noted, turgor normal, skin not dry, no jaundice, No spider nevi and no striae Rashes: no rashes Nails: normal Neuro General: oriented to person, oriented to place and oriented to time Cranial nerves: Yes Equal, round and reactive pupils present and Yes Normal hearing present Speech: No Abnormal speech present Extrem General: Yes normal to inspection, No clubbing, No cyanosis and No edema Psych Appearance: grossly normal and well kempt Mental Status: mental status grossly normal Speech and movement: Normal speech and movement present Affect: normal affect Attitude: cooperative Thought process: Normal thought process present and not confabulating Thought content: Normal thought content present Insight: Limited insight present (Psych) and Poor insight present (Psych) Judgement: Limited judgement present (Psych) and Poor judgement present (Psych) Assessment & Plan Assessment & Plan (1) GERD (gastroesophageal reflux disease): Code(s): K21.9 - Gastro-esophageal reflux disease without esophagitis Category: Medical (2) Chronic idiopathic constipation: Code(s): K59.04 - Chronic idiopathic constipation Category: Medical Plan [place] #[place] Live She has been having a feeling of early and sustained satiety since September. However, despite multiple attempts to educate her that she needs to take it EVERY DAY she still is not taking it consistently. This is the likely reason, she is also c/o nausea and had one episode of vomiting. She is also having PM heartburn. I don; think we can move forward until she takes her aciphex every day. She is using the bisacodyl every day now twice a day. Return office visit in 6 weeks Medications: Changed From bisacodyl 10 mg [place] DAILY PRN 50 ea 3RF constipation To bisacodyl 10 mg [place] BID PRN 100 ea 3RF constipation Refilled rabeprazole (AcipHex) 20 mg PO DAILY 30 tabs 6RF K21.9 - Gastro-esophageal reflux disease without esophagitis Coding Level of Care Code Est Pt Level 3 (28636) Diagnoses GERD (gastroesophageal reflux disease) K21.9 Chronic idiopathic constipation K59.04
== END 2023-11-13 16:41 | disposition home or self-care (01) ==
PROVIDERS: PCP Internal Medicine; Visit Provider Nurse Practitioner
DX: K21.9 Gastro-esophageal reflux disease without esophagitis (principal); K59.04 Chronic idiopathic constipation
CPT/HCPCS: 99213

== ENCOUNTER → 2023-11-13 16:10 | Outpatient (BNVA) | payer OTHER, SELFPAY | PROVIDERS: PCP Internal Medicine; Visit Provider Nurse Practitioner | DX: K21.9 Gastro-esophageal reflux disease without esophagitis (principal); K59.04 Chronic idiopathic constipation; Z79.899 Other long term (current) drug therapy | CPT/HCPCS: 99212 ==

== ENCOUNTER 2025-02-07 22:58 | Emergency (ER) | payer SELFPAY ==
[2025-02-07 23:02] VITALS: BP 114/60; PULSE 74; RESP 16; TEMP 36.8; O2SAT 98; BMI 24.9
[2025-02-07 23:49] LABS: MANUAL DIFF FLAG NO
[2025-02-07 23:50] LABS: Hematocrit 36.1 % (37.0-47.0); Hemoglobin 12.1 g/dl (12.0-16.0); Imm Gran Abs Auto 0.02 X10*3/uL (0.00-0.03); Imm Gran Pct Auto 0.4 % (0.0-0.4); Lymphocytes Absolute Auto 2.2 X10*3/uL (1.2-4.9); Mean Corpuscular HGB Conc 33.5 g/dl (31.0-35.0); Mean Corpuscular Hemoglobin 31.0 pg (27.0-33.0); Mean Corpuscular Volume 92.6 fL (80.0-98.0); NRBC Abs Auto 0.000 X10*3/uL (0.0-0.012); NRBC Pct Auto 0.0 /100WBC (0.0-0.2); Platelet Count 273 X10*3/uL (160-400); Red Blood Count 3.90 X10*6/uL (4.20-5.50); White Blood Count 5.5 X10*3/uL (4.8-10.8)
[2025-02-07 23:52] LABS: Appearance Urine Clear; Glucose Urine UA Negative (Negative); PH 5.5 (5.0-9.0); Specific Gravity - Urine 1.015 (1.005-1.025)
[2025-02-07 23:53] LABS: UPreg QC Valid YES
[2025-02-07 23:55] VITALS: BP 137/74; PULSE 84; RESP 16; TEMP 37; O2SAT 94
--- NOTE | 2025-02-08 00:01 | PC.NURSE ---
pt states she has had this pain for almost a week, BM today, typically has to use laxative for BM, pain starting epigastric and radiating to R side.
[2025-02-08 00:04] LABS: Alanine Aminotransferase 22 U/L (0-31); Albumin Level 4.4 g/dL (3.5-5.0); Alkaline Phosphatase 59 U/L (39-117); Anion Gap 9 (12-20); Aspartate Amino Transferase 26 U/L (5-31); Blood Urea Nitrogen 12 mg/dL (9-16); Calcium 8.6 mg/dL (8.4-10.2); Carbon Dioxide 25 mmol/L (22-29); Chloride 109 mmol/L (96-108); Creatinine Clr Calc Pharmacy 85.7; Estimated Glomerular Filt Rate > 60; Lipase 47 U/L (8-78); Potassium 3.7 mmol/L (3.3-5.1); Sodium 139 mmol/L (135-145); Total Protein 7.4 g/dL (6.5-8.0)
--- NOTE | 2025-02-08 00:59 | ED_ITS ---
HPI - Abdominal Pain General Chief Complaint: Abdominal Pain Stated Complaint: Abdominal swelling Time Seen by Provider: 02/08/25 00:13 Source: patient and medical social worker Mode of arrival: ambulatory Limitations: language barrier History of Present Illness ED Provider: Dr. Maria Ines Fox HPI narrative: 44-year-old female with a history of GERD presenting with dyspepsia, epigastric abdominal pain, nausea and headaches ongoing for the last 2 weeks and worsening over the last several days. Has been taking her Zantac as prescribed without relief. Last week was sick with a URI which she feels she has recovered from. No reported fever. No vomiting. Has been having constipation with a some painful bowel movements. No diarrhea. No urinary complaints. Related Data Home Medications ?Medication ?Instructions ?Recorded ?Confirmed ipratropium 0.5 mg-albuterol 3 mg 3 ml inhalation BID 02/11/22 10/02/23 (2.5 mg base)/3 mL nebulization soln Previous Rx's ?Medication ?Instructions ?Recorded acetaminophen 500 mg tablet 500 mg PO Q6H PRN pain or fever 06/14/23 (Tylenol Extra Strength) #30 tabs Ventolin HFA 90 mcg/actuation 90 mcg inhalation NEE DED 30 06/15/23 aerosol inhaler (albuterol sulfate) days #18 grams fluticasone propionate 115 2 puff inhalation BID 30 da ys #1 ea 07/02/23 mcg-salmeterol 21 mcg/actuation HFA inhaler (Advair HFA) cetirizine 10 mg tablet 10 mg PO DAILY 90 days #90 t abs 07/27/23 cholecalciferol (vitamin D3) 50 50 mcg PO DAILY 90 day s #90 caps 07/27/23 mcg (2,000 unit) capsule epinephrine 0.3 mg/0.3 mL 0.3 mg (0.3 mL) IM Q4H PRN 0 07/27/23 injection, auto-injector anaphylaxis #2 ea methocarbamol 500 mg tablet 500 mg PO BEDTIME 5 days # 5 tabs 07/27/23 naproxen 500 mg tablet 500 mg PO BID 90 days #180 t abs 07/27/23 mepolizumab 100 mg/mL subcutaneous 100 mg subcut Q4W 2 8 days #1 mL 08/31/23 syringe (Nucala) prednisone 20 mg tablet 40 mg (2 x 20 mg) PO DAILY # 10 tabs 08/31/23 hydrocortisone 2.5 % topical cream 1 appl [place] BID PRN h emorrhoids #30 10/21/23 with perineal applicator grams (Proctosol HC) famotidine 40 mg tablet 40 mg PO DAILY 90 days #90 t abs 10/24/23 bisacodyl 10 mg rectal suppository 10 mg [place] BID PRN co nstipation #100 11/13/23 ea rabeprazole 20 mg tablet,delayed 20 mg PO DAILY #30 ta bs 11/13/23 release (AcipHex) fluticasone propionate 50 1 spray intranasal DAILY #32 mL 01/08/24 mcg/actuation nasal spray,suspension aluminum-mag hydroxide-simethicone 10 ml PO QID PRN dy spepsia #300 mL 02/08/25 200 mg-200 mg-20 mg/5 mL oral susp (Maalox Advanced) zeagavxvej-ztvqntlidlehj-vebvrven 1 cap PO TID PRN hea dache #10 caps 02/08/25 50 mg-300 mg-40 mg capsule (Fioricet) omeprazole 40 mg capsule,delayed 40 mg PO DAILY 30 day s #30 caps 02/08/25 release Allergies Allergy/AdvReac Type Severity Reaction Status Date / Time Beef Containing Products Allergy Intermediate ITCHY Verified 11/13/23 16:31 (BEEF CONTAINING PRODUCTS) lactose Allergy Mild Itching Verified 11/13/23 16:31 tramadol (TRAMADOL) Allergy Unknown TACHYCARDIA/SOB, Verified 11/13/23 16:31 anaphylaxis meperidine (From Demerol) Allergy Vomiting Verified 11/13/23 16:31 nut - unspecified Allergy Cough Verified 02/07/25 23:21 metronidazole AdvReac Intermediate stomach Verified 11/13/23 16:31 pain, shellfish Allergy Unknown anaphylaxis Uncoded 10/02/23 15:42 Review of Systems Review of Systems as per HPI, full review of systems performed and negative but for the above mentioned pertinent positives and negatives. [facility] Past Medical History Medical History Well woman exam with routine gynecological exam Cervical cancer screening URI (upper respiratory infection) COVID-19 Dizziness Chronic sinusitis Iron deficiency anemia due to chronic blood loss Tachycardia GERD (gastroesophageal reflux disease) Left knee pain Mild asthma History of ectopic Surgical History History of esophagogastroduodenoscopy (EGD) H/O tubal ligation History of Family History Family History Father Diabetes Mother Diabetes Maternal Grandmother Hypertension Maternal Grandfather Hypertension Lung cancer Paternal Grandfather Hypertension Paternal Grandmother Hypertension Social History Social History Household Members: Spouse and Children Housing: House Are you a primary lpn care manager to a significant other at home: No Do you presently have visiting nurse or other home services: Yes Alcohol intake: never Patient Tobacco Use Status: Never used Tobacco Smoked in Last 30 Days: No e-Cigarette/Vaping Use: Never Used Second Hand Smoke Exposure: No Advance Directives: No service: No Current occupational status: unemployed Current occupation: Right handed Gender identity: Female Cognitive needs: No Hearing needs: No Vision needs: No Physical Exam ED Exam Exam: GENERAL: Well-Appearing, conversant, no acute distress. SKIN: Normal skin color for ethnicity, warm, dry, no rashes noted. HEENT:? Normocephalic, atraumatic, no stridor, posterior oropharynx nonerythematous, dentition intact, EOMI. NECK: Soft, supple, full ROM, midline structures nontender, no step-offs, no deformities, no lymphadenopathy. CHEST: Heart regular rate and rhythm, no murmurs, symmetric chest rise and fall. PULMONARY: Clear to auscultation bilaterally, no labored breathing, no wheezes/rhales/rhonchi. ABDOMINAL: Softly distended, nontender, positive bowel sounds in all quadrants. : Deferred. MUSCULOSKELETAL: Normal tone, full range of motion, no deformities, no peripheral edema. NEURO: Alert and oriented x3, CN II through XII intact, equal strength and sensation bilateral upper and lower extremities, no focal neurologic deficits.? PSYCHIATRIC: Normal affect, fluid speech, good eye contact and appropriate demeanor. Vital Signs: Vital Signs - 24 hr 02/07/25 23:02 02/07/25 23:55 Temperature 98.2 F 98.6 F Pulse Rate 74 84 Respiratory Rate 16 16 Blood Pressure 114/60 137/74 Pulse Oximetry 98 94 Oxygen Delivery Method Room Air Room Air BMI result Body Mass Index 24.9 Medical Decision Making Medical Decision Making [facility] Narrative: This patient presents today with a chief complaint of abdominal pain. Differential diagnosis for this patient is broad.? It includes appendicitis, cholecystitis, bowel obstruction, diverticulitis, peptic ulcer disease, UTI, vascular pathology, among many others.? A broad-based workup based on history and physical examination was obtained. ? Patient was given Fioricet and oral Haldol for pain control. ? Clinically, patient presents as a worsening GERD type of picture. She was recently sick with a URI and since then has had some dyspepsia and difficulty swallowing even cold fluids. States that ?everything, including cold water, gives her pain?. She has a benign abdominal exam, normal blood work and urinalysis. Do not feel further imaging is indicated at this point. Discuss this with the patient at length. We will treat her GERD with Maalox and lidocaine. Also given Fioricet for her headache. Patient is refusing viscous lidocaine and Maalox. We will attempt Haldol p.o.. Overall, she remains stable for discharge. Differential Diagnosis Differential Diagnoses: The differential diagnosis associated with the presentation includes (as above) Admission/Observation Consideration of admission/observation: Escalation of care including admission/observation considered Lab Data MDM Lab Attestation statement: I reviewed the patient's lab results. 02/07/25 23:39 02/07/25 23:39 Labs: Lab Results 02/07/25 Range/Units 23:39 WBC 5.5 (4.8-10.8) X10*3/uL RBC 3.90 L (4.20-5.50) X10*6/uL Hgb 12.1 (12.0-16.0) g/dl Hct 36.1 L (37.0-47.0) % MCV 92.6 (80.0-98.0) fL MCH 31.0 (27.0-33.0) pg MCHC 33.5 (31.0-35.0) g/dl RDW 11.8 (11.0-16.0) % Plt Count 273 (160-400) X10*3/uL MPV 9.6 (9.4-12.3) fL Immature Gran % (Auto) 0.4 (0.0-0.4) % Neut % (Auto) 43.8 L (45-73) % Lymph % (Auto) 40.7 H (20-40) % [place] % (Auto) 8.2 (2-11) % Eos % (Auto) 6.0 H (0-4) % Baso % (Auto) 0.9 (0-2) % Lymph # (Auto) 2.2 (1.2-4.9) X10*3/uL [place] # (Auto) 0.5 (0.1-1.2) X10*3/uL Eos # (Auto) 0.3 (0.0-0.4) X10*3/uL Baso # (Auto) 0.1 (0.0-0.2) X10*3/uL Abs Immat Gran (auto) 0.02 (0.00-0.03) X10*3/uL Absolute Neuts (auto) 2.4 (2.0-8.3) x10*3/uL Absolute Nucleated RBC 0.000 (0.0-0.012) X10*3/uL Nucleated RBC % (auto) 0.0 (0.0-0.2) /100WBC Sodium 139 (135-145) mmol/L Potassium 3.7 (3.3-5.1) mmol/L Chloride 109 H (96-108) mmol/L Carbon Dioxide 25 (22-29) mmol/L Anion Gap 9 L (12-20) BUN 12 (9-16) mg/dL Creatinine 0.61 (0.5-1.4) mg/dL Estim Creat Clear Calc 85.7 Estimated GFR > 60 Random Glucose 86 (60-115) mg/dL Calcium 8.6 (8.4-10.2) mg/dL Total Bilirubin 0.3 (0.0-1.0) mg/dL Direct Bilirubin 0.1 (0.0-0.5) mg/dL AST 26 (5-31) U/L ALT 22 (0-31) U/L Alkaline Phosphatase 59 (39-117) U/L Total Protein 7.4 (6.5-8.0) g/dL Albumin 4.4 (3.5-5.0) g/dL Lipase 47 (8-78) U/L Urine Color Yellow Urine Appearance Clear Urine pH 5.5 (5.0-9.0) Ur Specific [place] 1.015 (1.005-1.025) Urine Protein Negative (Neg-Trace) mg/dL Urine Glucose (UA) Negative (Negative) mg/dL Urine Ketones Negative (Negative) mg/dL Urine Blood Negative (Negative) Urine Nitrite Negative (Negative) Ur Leukocyte Esterase Negative (Negative) Urine Test NEGATIVE (NEGATIVE) External Record Review External record reviewed: Inpatient record Prescription Management I considered prescription management with: Pain Medication Chronic Conditions Patient?s care impacted by: Other (GERD, anemia) Discharge Plan Discharge Clinical Impression: GERD (gastroesophageal reflux disease), Postprandial abdominal bloating Patient Disposition: Home, Self-Care Instructions: How to Avoid and Decrease Problems with Gas (DC), Gas and Bloating (ED) Additional Instructions: Use Fioricet for headaches Take omeprazole every day instead of Zantac to see if this helps your dyspepsia. Return to the ER with any new or worsening symptoms including: Worsening headaches despite medications, fevers greater than 100?, inability to tolerate food or drink, any new symptom that concerns you. Call 911 with any medical emergency. Prescriptions: New omeprazole 40 mg capsule,delayed release(DR/EC) 40 mg PO DAILY 30 Days Qty: 30 0RF alum-mag hydroxide-simeth [Maalox Advanced] 200-200-20 mg/5 mL suspension 10 ml PO QID PRN (Reason: dyspepsia) Qty: 300 0RF Rx Instructions: administer between meals and at bedtime [id number] [Fioricet] 50-300-40 mg capsule 1 cap PO TID PRN (Reason: headache) Qty: 10 0RF No Action albuterol sulfate [Ventolin HFA] 90 mcg/actuation HFA aerosol inhaler 90 mcg inhalation NEEDED 30 Days Qty: 18 6RF Nucala 100 mg/mL syringe 100 mg subcut Q4W 28 Days Qty: 1 12RF prednisone 20 mg tablet 40 mg PO DAILY Qty: 10 0RF hydrocortisone [Proctosol HC] 2.5 % cream with perineal applicator 1 appl [place] BID PRN (Reason: hemorrhoids) Qty: 30 3RF famotidine 40 mg tablet 40 mg PO DAILY 90 Days Qty: 90 0RF fluticasone propionate 50 mcg/actuation spray,suspension 1 spray intranasal DAILY Qty: 32 0RF acetaminophen [Tylenol Extra Strength] 500 mg tablet 500 mg PO Q6H PRN (Reason: pain or fever) Qty: 30 0RF cetirizine 10 mg tablet 10 mg PO DAILY 90 Days Qty: 90 1RF cholecalciferol (vitamin D3) 50 mcg (2,000 unit) capsule 50 mcg PO DAILY 90 Days Qty: 90 1RF epinephrine 0.3 mg/0.3 mL auto-injector 0.3 mg IM Q4H PRN (Reason: anaphylaxis) Qty: 2 0RF naproxen 500 mg tablet 500 mg PO BID 90 Days Qty: 180 1RF methocarbamol 500 mg tablet 500 mg PO BEDTIME 5 Days Qty: 5 0RF ipratropium-albuterol 0.5 mg-3 mg(2.5 mg base)/3 mL solution for nebulization 3 ml inhalation BID Advair HFA 115-21 mcg/actuation HFA aerosol inhaler 2 puff inhalation BID 30 Days Qty: 1 6RF bisacodyl 10 mg suppository 10 mg [place] BID PRN (Reason: constipation) Qty: 100 3RF rabeprazole [AcipHex] 20 mg tablet,delayed release (DR/EC) 20 mg PO DAILY Qty: 30 6RF Print Language: Sinhala
[2025-02-08] MEDS: Butalb/Acetamin/Caff 50/325/40 TABLET 1 TAB PO (01:10)
[2025-02-08 01:40] VITALS: BP 125/62; PULSE 79; RESP 16; TEMP 36.7; O2SAT 100
== END 2025-02-08 01:46 | disposition home or self-care (01) ==
PROVIDERS: Emergency Provider Emergency Medicine; PCP Internal Medicine
DX: K21.9 Gastro-esophageal reflux disease without esophagitis (principal); R14.0 Abdominal distension (gaseous); R51.9 Headache, unspecified; R11.0 Nausea; R10.13 Epigastric pain
CPT/HCPCS: 36415; 80048; 80076; 81003; 81025; 83690; 85025; 99283; 99284